=== PATIENT | male | born 1950 | race Two or more races ===

== ENCOUNTER 2024-03-18 20:26 | Inpatient (IN) | payer BC, MEDICAID ==
[~2024-03-18] VITALS: Ht 175.3 cm; Wt 86.2 kg
[2024-03-18 21:00] VITALS: PULSE 107; RESP 13; O2SAT 93
[2024-03-18] MEDS: dilTIAZem 125mg/125ml BAG KIT 100 ML IV SCH (21:00)
--- NOTE | 2024-03-18 21:05 | ED.PDOC ---
Altered Mental Status HPI Comments A 73 year old male brought in by EMS presents to the ED with a chief complaint of ALOC. Per EMS, patient was at [facility] for increased confusion as well as generalized weakness for the past 2 days. Per [facility], patient has new onset of A-fib and has elevated Troponin. Has a past medical history of HTN, HLD, Liver cirrhosis, HLD, CVA. No other symptoms or modifying factors present at this time. Chief Complaint: ALOC Time Seen by MD: 20:50 Reviewed Notes: Medications, Allergies Allergies: Coded Allergies: NO KNOWN ALLERGIES (Unverified , 03/18/24) Information Source: Patient, Emergency Med Personnel Mode of Arrival: EMS Severity: Moderate Timing: Days Duration: Since onset Prehospital treatment: None Quality: Change in Behavior, Confusion History of: CVA Past Medical History PAST MEDICAL HISTORY: AFIB Family History Family History: Unknown Social History Smoker: Non-Smoker Alcohol: Denies ETOH Use Drugs: Denies Drug Use Lives In: Home Constitutional: denies: chills, diaphoresis, fatigue, fever, malaise, sweats, weakness, others EENTM: denies: blurred vision, double vision, ear bleeding, ear discharge, ear drainage, ear pain, ear ringing, eye pain, eye redness, hearing loss, mouth pain , mouth swelling, nasal discharge, nose bleeding, nose congestion, nose pain, photophobia, tearing, throat pain, throat swelling, voice changes, others Respiratory: denies: cough, hemoptysis, orthopnea, SOB at rest, shortness of breath, SOB with excertion, stridor, wheezing, others Cardiovascular: denies: chest pain, dizzy spells, diaphoresis, Dyspnea on exertion, edema, irregular heart beat, left arm pain, lightheadedness, palpitations, PND, syncope, others Gastrointestinal: denies: abdomen distended, abdominal pain, blood streaked bowels, constipated, diarrhea, dysphagia, difficulty swallowing, hematemesis, melena, nausea, poor appetite, poor fluid intake, rectal bleeding, rectal pain, vomiting, others Genitourinary: denies: burning, dysuria, flank pain, frequency, hematuria, incontinence, penile discharge, penile sore, pain, testicle pain, testicle swelling, urgency, others Neurological: denies: dizziness, fainting, headache, left sided numbness, left sided weakness, numbness, paresthesia, pre-existing deficit, right sided numbness, right sided weakness, seizure, speech problems, tingling, tremors, weakness, others Musculoskeletal: denies: back pain, gout, joint pain, joint swelling, muscle pain, muscle stiffness, neck pain, others Integumetry: denies: bruises, change in color, change in hair/nails, dryness, laceration, lesions, lumps, rash, wounds, others Allergic/Immunocompromised: denies: Difficulty Healing, Frequent Infections, Hives, Itching, others Hematologic/Lymphatic: denies: anemia, blood clots, easy bleeding, easy bruising, swollen glands, others Endocrine: denies: excessive hunger, excessive sweating, excessive thirst, excessive urination, flushing, intolerance to cold, intolerance to heat, unexplained weight gain, unexplained weight loss, others Psychiatric: denies: anxiety, bipolar disorder, depression, hopeless, panic disorder, schizophrenia, sleepless, suicidal, others All Other Systems: Reviewed and Negative Physical Exam General Appearance: No Apparent Distress, Normal HEENT: Normal ENT Inspection, Pharynx Normal, TMs Normal Neck: Full Range of Motion, Non-Tender, Normal, Normal Inspection Respiratory: Chest Non-Tender, Lungs Clear, No Accessory Muscle Use, No Respiratory Distress, Normal Breath Sounds Cardiovascular: No Edema, No JVD, No Murmur, No Gallop, Normal Peripheral Pulses, Regular Rate/Rhythm Breast Exam: Deferred Gastrointestinal: No Organomegaly, Non Tender, No Pulsatile Mass, Normal Bowel Sounds, Soft Genitalia: Deferred Pelvic: Deferred Rectal: Deferred Extremities: No calf tenderness, Normal capillary refill, Normal inspection, Normal range of motion, Non-tender, No pedal edema Musculoskeletal : Apperance: Normal 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 Was a procedure done?: No Differential Diagnosis (ALOC) Differential Diagnosis: Dehydration, Encephalopathy, Sepsis, Seizure, Closed Head Injury, CVA X-Ray, Labs, Meds, VS Vital Signs Date Time Temp Pulse Resp B/P (MAP) Pulse Ox O2 Delivery O2 Flow Rate FiO2 03/18/24 21:00 107 13 123/67 (85) 93 03/18/24 20:41 109 03/18/24 20:32 100.2 104 16 127/65 (85) 95 03/18/24 20:30 109 Lab Test 03/18/24 23:06 03/18/24 22:52 03/18/24 22:35 03/18/24 22:19 Range/Units Lactic Acid Level Pending Blood Gas Specimen Type Arterial Blood Gas Sample Site Right radial Blood Gas Patient Temperature 37.0 Arterial Blood Date Drawn [id number] Arterial Blood pH 7.376 7.350-7.450 Arterial Blood Partial Pressure CO2 42.1 35.0-48.0 mmHg Arterial Blood Partial Pressure O2 70.6 L 83.0-108.0 mmHg Arterial Blood HCO3 24.1 21.0-28.0 mmol/L Arterial Blood Oxygen Saturation 92.9 L 94.0-98.0 % Arterial Blood Base Excess -1.1 -2.0-3.0 mmol/L Arterial Blood Oxyhemoglobin 91.5 L 94.0-98.0 % Arterial Blood Carboxyhemoglobin 1.0 0.5-1.5 % Arterial Blood Methemoglobin 0.5 0.0-1.5 % Haim Test Yes Blood Gas Total Hemoglobin 11.10 L 13.5-17.5 g/dL Blood Gas Liter Flow 6.00 Blood Gas Modality Nasal cannula Blood Gas Spontaneous Rate 18 FiO2 % 44.0 Urine Color Light-orange Yellow Urine Clarity Turbid H Clear Urine pH 5.5 5.0-9.0 Urine Specific [place] 1.017 1.001-1.035 Urine Protein 1+ H Negative Urine Ketones 1+ H Negative Urine Blood 3+ H Negative /uL Urine Nitrite Negative Negative Urine Bilirubin Negative Negative Urine Urobilinogen Normal Negative mg/dL Urine Leukocyte Esterase 1+ Negative /uL Urine RBC 2020 0 - 3 /hpf Urine WBC 70 0 - 3 /hpf Urine Squamous Epithelial Cells None seen <5 /hpf Urine Bacteria Mod H None Seen /hpf Urine Mucus Few None Seen Urine Glucose Normal Normal mg/dL Prothrombin Time Pending Prothrombin Time INR Pending Activated Partial Thromboplast Time Pending Test 03/18/24 22:18 03/18/24 21:20 Range/Units Troponin I High Sensitivity 4654 *H 4440 *H </=54 ng/L White Blood Count 11.6 H 4.4-10.8 10^3/uL Red Blood Count 3.69 L 4.5-5.90 10^6/uL Hemoglobin 10.9 L 13.5-17.5 g/dL Hematocrit 33.8 L 41.0-53.0 % Mean Corpuscular Volume 91.6 80.0-100.0 fL Mean Corpuscular Hemoglobin 29.6 28.0-32.0 pg Mean Corpuscular Hemoglobin Concent 32.3 32.0-36.0 g/dL Red Cell Distribution Width 20.6 H 11.8-14.3 % Platelet Count 136 L 140-450 10^3/uL Mean Platelet Volume 10.0 6.9-10.8 fL Neutrophils (%) (Auto) 77.7 37.0-80.0 % Lymphocytes (%) (Auto) 4.5 L 10.0-50.0 % Monocytes (%) (Auto) 17.2 H 0.0-12.0 % Eosinophils (%) (Auto) 0.3 0.0-7.0 % Basophils (%) (Auto) 0.3 0.0-2.0 % Neutrophils # (Auto) 9.0 H 1.6-8.6 10 ^3/uL Lymphocytes # (Auto) 0.5 0.4-5.4 10 ^3/uL Monocytes # (Auto) 2.0 H 0-1.3 10 ^3/uL Eosinophils # (Auto) 0 0-0.8 10 ^3/uL Basophils # (Auto) 0 0-0.2 10 ^3/uL Nucleated Red Blood Cells 1.4 % Sodium Level 141 136-145 mmol/L Potassium Level 3.9 3.5-5.1 mmol/L Chloride Level 110 H 98-107 mmol/L Carbon Dioxide Level 20 20-31 mmol/L Anion Gap 11 5-15 Blood Urea Nitrogen 20 9-23 mg/dL Creatinine 0.73 0.700-1.30 mg/dL Glomerular Filtration Rate Calc 96 >90 mL/min BUN/Creatinine Ratio 27.4 H 10.0-20.0 Serum Glucose 103 74-106 mg/dL Lactic Acid Level 3.1 *H 0.4-2.0 mmol/L Calcium Level 9.9 8.7-10.4 mg/dL Total Bilirubin 10.5 H 0.2-1.0 mg/dL Aspartate Amino Transferase (AST) 166 H 13-40 U/L Alanine Aminotransferase (ALT) 102 H 7-40 U/L Alkaline Phosphatase 296 H 46-116 U/L Ammonia < 10 L 11-32 umol/L B-Type Natriuretic Peptide Pending Total Protein 7.8 5.7-8.2 g/dL Albumin 4.1 3.2-4.8 g/dL Lipase 61 H 12-53 U/L [place] [address] Ph: [phone] DIAGNOSTIC IMAGING Diagnostic Imaging Report : [id number] Signed PATIENT: ARTUR SOLORZANO ACCT: [id number] UNIT: [id number] : 1950 LOC: ER ROOM / BED: / AGE / SEX: 73 / M ADM STATUS: REG ER SERVICE 00 ORDERING PHYSICIAN: JENNIFER GARCIA MD PROCEDURE(s): CXRP - CHEST PORTABLE REASON: ams ORDER NUMBER(s): [id number], ACCESSION NUMBER(s): [id number] CHEST RADIOGRAPH Indication: ams Technique: Single frontal view of the chest was obtained Comparison: None FINDINGS: Lines and Tubes: None Lungs: Infiltrate in the right perihilar and right lower lobe. Pleura: No effusion. No pneumothorax. Cardiomediastinal contours: Unremarkable Bones: Bilateral shoulder replacements. IMPRESSION: 1. Infiltrate right lower lobe and right perihilar region. ATED BY: MARIA D RUIZ Jr., DO DICTATED DATE/TIME: 03/18/242132 SIGNED BY: MARIA D RUIZ Jr., SIGNED DATE/TIME: 03/18/242132 CC: [place] [address] Ph: [phone] DIAGNOSTIC IMAGING Diagnostic Imaging Report : [id number] Signed PATIENT: ARTUR SOLORZANO ACCT: [id number] UNIT: [id number] : 1950 LOC: ER ROOM / BED: / AGE / SEX: 73 / M ADM STATUS: REG ER SERVICE 00 ORDERING PHYSICIAN: JENNIFER GARCIA MD PROCEDURE(s): HWOCT - HEAD WITHOUT CONTRAST REASON: [facility] ORDER NUMBER(s): [id number], ACCESSION NUMBER(s): [id number] EXAM: CT HEAD WITHOUT CONTRAST INDICATION: ams TECHNIQUE: CT of the head without intravenous contrast. Radiation Dose Information: CT Dose: CTDI volume is 65.94 mGy. Dose-length product is 1299.24 mGy*cm The dose indicators for CT are the volume Computed Tomography (CT) Dose Index (CTDIvol) and the Dose Length Product (DLP), and are measured in units of mGy and mGy-cm, respectively. These indicators are not patient dose, but values generated from the CT scanner acquisition factors. The report includes radiation exposure data for exposures received during this examination. COMPARISON: None FINDINGS: There is no evidence of acute intracranial hemorrhage, extra-axial collection, mass effect, midline shift, herniation or hydrocephalus. The ventricles, sulci and cisterns are age appropriate. The ruiz-white differentiation is intact. Patchy periventricular and subcortical white matter hypoattenuation is nonspecific but may be related to small vessel ischemic disease. Mild mucosal thickening in the maxillary sinuses. The mastoid air cells are clear. The surrounding soft tissues and osseous structures are unremarkable. IMPRESSION: 1. No acute intracranial hemorrhage 2. No CT findings to suggest territorial ischemia. ATED BY: MARIA D RUIZ Jr., DO DICTATED DATE/TIME: 03/18/242155 SIGNED BY: MARIA D RUIZ Jr., SIGNED DATE/TIME: 03/18/242155 CC: Time of 1ST Reevaluation: 21:20 Reevaluation 1ST: Unchanged Patient Education/Counseling: Diagnosis, Treatment, Prognosis Family Education/Counseling: No Family Present Additional Information I reviewed the following notes from patient's past medical encounters: The following tests were ordered, and results were reviewed by me: AMMONIA, BNP, CBC, CMP, LA W/ REFLEX. LIPASE, TROP, TROP, TROP, UA, XY CHEST, CT HEAD WITHOUT CONTRAST, PTPTT Additional Information was gathered from interviewing the following independent historians: EMS I reviewed and agreed with the following test results read by other providers: CT HEAD WITHOUT CONTRAST, XY CHEST I discussed treatment and results with medical personnel and: patient Departure 1 Departure Time of Disposition: 23:23 (Patient was a transfer from [facility]. Patient presented with signs of sepsis and an NSTEMI. Patient was already started on treatment at the outside hospital. Started heparin empirically cover patient with antibiotics for pneumonia. patient already received fluids boluses at outside hospital and appears mildly volume overloaded so will not give aditional fluids here. ) Impression: Primary Impression: Metabolic encephalopathy Additional Impressions: Pneumonia Qualified Codes: J18.9 - Pneumonia, unspecified organism NSTEMI (non-ST elevated myocardial infarction) Disposition: ADMITTED INPATIENT Admit to: [facility] Condition: Guarded Critical Care Note Critical Care Time?: Yes Critical care comment: Concern for sepsis Authorized and Performed by: Jennifer Garcia MD Total critical care time: Approximately 33 minutes Due to a high probability of clinically significant, life threatening deterioration, the patient required my highest level of preparedness to intervene emergently and I personally spent this critical care time directly and personally managing the patient. This critical care time included obtaining a history; examining the patient; pulse oximetry; ordering and review of studies; arranging urgent treatment with development of a management plan; evaluation of patient's response to treatment; frequent reassessment; and, discussions with other providers. This critical care time was performed to assess and manage the high probability of imminent, life-threatening deterioration that could result in multi-organ failure. It was exclusive of separately billable procedures and treating other patients and teaching time. Please see my other sections and the rest of the note for further information on patient assessment and treatment. Stability Stability form required: No I personally scribed for JENNIFER GARCIA MD ([email or web address]) on 03/18/24 at 21:05. Electronically submitted by Monika Horton ([email or web address]). I personally scribed for JENNIFER GARCIA MD ([email or web address]) on 03/18/24 at 21:07. Electronically submitted by Monika Horton ([email or web address]). I personally scribed for JENNIFER GARCIA MD ([email or web address]) on 03/18/24 at 21:51. Electronically submitted by Monika Horton ([email or web address]). I personally scribed for JENNIFER GARCIA MD ([email or web address]) on 03/18/24 at 23:13. Electronically submitted by Monika Horton ([email or web address]). JENNIFER GARCIA MD Mar 18, 2024 21:05
--- NOTE | 2024-03-18 21:35 | DVH ---
CHEST RADIOGRAPH Indication: ams Technique: Single frontal view of the chest was obtained Comparison: None FINDINGS: Lines and Tubes: None Lungs: Infiltrate in the right perihilar and right lower lobe. Pleura: No effusion. No pneumothorax. Cardiomediastinal contours: Unremarkable Bones: Bilateral shoulder replacements. IMPRESSION: 1. Infiltrate right lower lobe and right perihilar region.
[2024-03-18 21:39] LABS: Basophils # (auto) 0 10 ^3/uL (0-0.2); Basophils % (auto) 0.3 % (0.0-2.0); Eosinophils # (auto) 0 10 ^3/uL (0-0.8); Eosinophils % (auto) 0.3 % (0.0-7.0); Hematocrit 33.8 % (41.0-53.0); Hemoglobin 10.9 g/dL (13.5-17.5); Lymphocytes # (auto) 0.5 10 ^3/uL (0.4-5.4); Lymphocytes % (auto) 4.5 % (10.0-50.0); Mean Corpuscular Hemoglobin 29.6 pg (28.0-32.0); Mean Corpuscular Hgb Conc. 32.3 g/dL (32.0-36.0); Mean Corpuscular Volume 91.6 fL (80.0-100.0); Monocytes % (auto) 17.2 % (0.0-12.0); Neutrophils % (auto) 77.7 % (37.0-80.0); Nucleated Red Blood Cells % 1.4 %; Platelet Count (auto) 136 10^3/uL (140-450); Red Blood Cells 3.69 10^6/uL (4.5-5.90); White Blood Cell 11.6 10^3/uL (4.4-10.8)
[2024-03-18 21:53] LABS: Anion Gap 11 (5-15); Calcium 9.9 mg/dL (8.7-10.4); Carbon Dioxide 20 mmol/L (20-31); Glucose 103 mg/dL (74-106); Potassium 3.9 mmol/L (3.5-5.1); Sodium 141 mmol/L (136-145)
[2024-03-18 21:54] LABS: Albumin 4.1 g/dL (3.2-4.8); Total Protein 7.8 g/dL (5.7-8.2)
--- NOTE | 2024-03-18 21:59 | DVH ---
EXAM: CT HEAD WITHOUT CONTRAST INDICATION: ams TECHNIQUE: CT of the head without intravenous contrast. Radiation Dose Information: CT Dose: CTDI volume is 65.94 mGy. Dose-length product is 1299.24 mGy*cm The dose indicators for CT are the volume Computed Tomography (CT) Dose Index (CTDIvol) and the Dose Length Product (DLP), and are measured in units of mGy and mGy-cm, respectively. These indicators are not patient dose, but values generated from the CT scanner acquisition factors. The report includes radiation exposure data for exposures received during this examination. COMPARISON: None FINDINGS: There is no evidence of acute intracranial hemorrhage, extra-axial collection, mass effect, midline s hift, herniation or hydrocephalus. The ventricles, sulci and cisterns are age appropriate. The ruiz-white differentiation is intact. Patchy periventricular and subcortical white matter hypoattenuation is nonspecific but may be related to small vessel ischemic disease. Mild mucosal thickening in the maxillary sinuses. The mastoid air cells are clear. The surrounding soft tissues and osseous structures are unremarkable. IMPRESSION: 1. No acute intracranial hemorrhage 2. No CT findings to suggest territorial ischemia.
[2024-03-18 22:05] LABS: Red Cell Distribution Width 20.6 % (11.8-14.3)
[2024-03-18 22:06] LABS: Aspartate Aminotransferase 166 U/L (13-40); Bilirubin, Total 10.5 mg/dL (0.2-1.0)
[2024-03-18 22:09] LABS: Alanine Aminotransferase 102 U/L (7-40); Alkaline Phosphatase 296 U/L (46-116); Chloride 110 mmol/L (98-107); Lipase 61 U/L (12-53)
[2024-03-18 22:13] LABS: Lactic Acid w/Reflex 3.1 mmol/L (0.4-2.0)
[2024-03-18 22:20] LABS: BUN/Creatinine Ratio 27.4 (10.0-20.0); Blood Urea Nitrogen 20 mg/dL (9-23)
[2024-03-18 22:57] LABS: Urine Bacteria MOD /hpf (None Seen); Urine Blood 3+ /uL (Negative); Urine Clarity Turbid (Clear); Urine Color Light-Orange (Yellow); Urine Mucus FEW (None Seen); Urine Protein, UAD 1+ (Negative); Urine Specific Gravity 1.017 (1.001-1.035); Urine Squamous Epithelial Cell None Seen /hpf (<5); Urine Urobilinogen Normal (Negative); Urine WBC 70 /hpf (0 - 3); Urine pH 5.5 (5.0-9.0)
[2024-03-18 23:19] LABS: Base Excess -1.1 mmol/L (-2.0-3.0)
[2024-03-18] MEDS: VANCOMYCIN 1GM/250ML KIT 200 ML IV ONE (23:28)
[2024-03-18 23:49] LABS: INR 1.29 (0.9-1.15); Partial Thromboplastin Time 28.2 SEC (24.5-34.5); Prothrombin Time 13.4 sec (9.3-11.8)
[2024-03-18] MEDS: ROCURONIUM 10MG/ML 10ML VIAL IV ONE (23:52)
[2024-03-18] MEDS: ETOMIDATE (2MG/ML) 20ML VIAL IV ONE (23:52)
[2024-03-18 23:58] VITALS: BP 143/74; PULSE 104; RESP 18; O2SAT 100
[2024-03-19] VITALS (42 sets, daily range): BP systolic 84–165; BP diastolic 47–92; PULSE 79–118; RESP 13–22; TEMP 97.3–100.2; O2SAT 97–100
[2024-03-19] MEDS ORDERED: MORPHINE SULFATE INJ 2 MG/ml SYRG IV PRN (00:15)
[2024-03-19] MEDS ORDERED: NITROGLYCERIN 0.4 MG SL TAB SL PRN (00:15)
--- NOTE | 2024-03-19 00:21 | ED.PDOC ---
Was a procedure done? 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: Attending Physician Indication: Hypotension, Volume resuscitation Room prepared for procedure: Yes Carpet Sewing Machine Operator performed hand hygien: Yes Maximal sterile barrier precau: Mask/Eye shield, Sterile gown, Sterlie gloves, Large sterlie drape Skin Preparation: Chlorhexidine gluconate Skin preparation completely dr: Yes Insertion site: Right, Femoral Central line catheter type: Uff-xpmbincy-iyg dialysis Number of lumens: 3 Central line exchanged over a: Yes Antiseptic ointment applied to: Yes Post Assessment: Proper placement Informed consent obtained: No Risks/benefits/alt described: No Intubation Indication: Altered Mental Status Prep: Preoxygenation Pretreated with: Other (Etomidate) Medicated with: Other (Rocuronium) Intubation Approach: Orotracheal Intubation size: cm (8) Informed consent obtained: No Risks/benefits/alt described: No Departure 1 Departure Time of Disposition: 23:23 (Patient continued to deteriorate became more and more confused and altered. Patient began aspirating was not tolerating his own secretions. Patient was intubated for airway protection. Central line was placed.) Impression: Primary Impression: Metabolic encephalopathy Additional Impressions: NSTEMI (non-ST elevated myocardial infarction) Pneumonia Qualified Codes: J18.9 - Pneumonia, unspecified organism Aspiration into airway Qualified Codes: T17.908A - Unspecified foreign body in respiratory tract, part unspecified causing other injury, initial encounter Disposition: ADMITTED INPATIENT Admit to: ICU Condition: Critical Critical Care Note Critical Care Time?: Yes Critical care comment: Metabolic encephalopathy I spent an additional 44 minutes of critical care time on this patient. JENNIFER GARCIA MD Mar 19, 2024 00:21
[2024-03-19 00:40] LABS: Cannabinoid Screen, Urine Pos (NEGATIVE); Opiate Scree,Urine Pos (NEGATIVE)
[2024-03-19 01:00] LABS: Amphetamine Screen, Urine Neg (NEGATIVE); Barbiturate Scree,Urine Neg (NEGATIVE); Benzodiazephine Screen, Urine Pos (NEGATIVE); Cocaine Screen, Urine Neg (NEGATIVE); Phencyclidine Screen, Urine Neg (NEGATIVE)
--- NOTE | 2024-03-19 01:04 | DVH ---
CHEST RADIOGRAPH Indication: POST INTUBATION Technique: Single frontal view of the chest was obtained Comparison: XY CHEST PORTABLE on DOS: 03/18/24 FINDINGS: Lines and Tubes: Endotracheal tube 6 cm above the lowell. Lungs: Persistent right lower lobe infiltrate our improved inspiratory effort. Pleura: No effusion. No pneumothorax. Cardiomediastinal contours: Unremarkable Bones: Bilateral shoulder prosthesis IMPRESSION: 1. Endotracheal tube 6 cm above the lowell. 2. Improved inspiratory effort with persistent right lower lobe airspace disease. HS:Y
[2024-03-19 01:09] LABS: Base Excess -2.3 mmol/L (-2.0-3.0)
[2024-03-19] MEDS: HEPARIN SODIUM (PORCINE) 5000 UNITS/ML 1ML VIAL IV ONE (01:14)
[2024-03-19] MEDS: HEPARIN DRIP/D5W 100UNITS/ML 250 ML IV SCH ×2 (01:22→15:28)
[2024-03-19] MEDS: AZITHROMYCIN 500MG/ 250ML 250 ML IV ONE (01:27)
[2024-03-19] MEDS: PROPOFOL 100 ML IV SCH (01:36)
--- NOTE | 2024-03-19 01:49 | DVH ---
ABDOMINAL ULTRASOUND CLINICAL HISTORY: Elevated LFT, UTI TECHNIQUE: Multiple grayscale and color Doppler ultrasound images were obtained of the abdomen. WID: COMPARISON: None FINDINGS: Technically difficult study due to patient factors, limited mobility and intubation. Liver and Biliary System: Nodular contour and small in size, increased echogenicity measuring 12.9 cm. No focal hepatic observations. No intrahepatic bile duct dilatation. The common duct is not visu alized. The gallbladder is normal caliber without wall thickening. Pancreas: Obscured due to overlying bowel gas Spleen: is within normal limits. Kidneys: The right kidney is 10.1 cm and the left kidney is 0 cm. No hydronephrosis, increased ech ogenicity, shadowing stone, or focal lesion. Right pleural effusion. Questionable trace left pleural effusion. IMPRESSION: 1. Small nodular contour of the liver which could be cirrhosis or fibrosis. 2. Hepatic steatosis. 3. No acute cholecystitis. 4. Right pleural effusion and questionable trace left pleural effusion.
[2024-03-19] MEDS: SOD CHL 0.45% 1,000 ML IV ONE (02:19)
[2024-03-19] MEDS: CEFEPIME 2GM/50ML NS 50 ML IV ONE (02:19)
--- NOTE | 2024-03-19 02:59 | ECG ---
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
[2024-03-19 03:13] LABS: Basophils # (auto) 0 10 ^3/uL (0-0.2); Basophils % (auto) 0.1 % (0.0-2.0); Eosinophils # (auto) 0 10 ^3/uL (0-0.8); Hematocrit 32.1 % (41.0-53.0); Hemoglobin 10.5 g/dL (13.5-17.5); Lymphocytes # (auto) 0.6 10 ^3/uL (0.4-5.4); Lymphocytes % (auto) 3.8 % (10.0-50.0); Mean Corpuscular Hemoglobin 29.6 pg (28.0-32.0); Mean Corpuscular Hgb Conc. 32.6 g/dL (32.0-36.0); Mean Corpuscular Volume 90.9 fL (80.0-100.0); Monocytes % (auto) 12.9 % (0.0-12.0); Neutrophils # (auto) 13.2 10 ^3/uL (1.6-8.6); Neutrophils % (auto) 83.2 % (37.0-80.0); Nucleated Red Blood Cells % 1.2 %; Platelet Count (auto) 135 10^3/uL (140-450); Red Blood Cells 3.53 10^6/uL (4.5-5.90); White Blood Cell 15.8 10^3/uL (4.4-10.8)
[2024-03-19 03:21] LABS: Red Cell Distribution Width 20.3 % (11.8-14.3)
[2024-03-19 03:30] LABS: Albumin 4.1 g/dL (3.2-4.8); Anion Gap 10 (5-15); Calcium 9.7 mg/dL (8.7-10.4); Carbon Dioxide 23 mmol/L (20-31); Potassium 3.7 mmol/L (3.5-5.1); Sodium 141 mmol/L (136-145); Total Protein 7.8 g/dL (5.7-8.2)
[2024-03-19 03:33] LABS: Alanine Aminotransferase 98 U/L (7-40); Alkaline Phosphatase 289 U/L (46-116); Aspartate Aminotransferase 155 U/L (13-40); Bilirubin, Total 10.8 mg/dL (0.2-1.0); Chloride 108 mmol/L (98-107); Glucose 173 mg/dL (74-106)
[2024-03-19] MEDS: fentaNYL Drip 2500mCg/250mlNS 250 ML IV SCH (04:54)
[2024-03-19 05:10] LABS: BUN/Creatinine Ratio 27.4 (10.0-20.0); Blood Urea Nitrogen 23 mg/dL (9-23)
[2024-03-19] MEDS: MIDAZOLAM DRIP 50 mg/50mL 50 ML IV SCH (06:03)
[2024-03-19] MEDS: MIDAZOLAM DRIP 50 mg/50mL 50 ML IV ONE (06:04)
[2024-03-19] MEDS: IPRATROPIUM BROM 0.5 MG/2.5ML INH SOL NEB SCH (06:42)
[2024-03-19] MEDS: ALBUTEROL SULF 2.5 MG/0.5ML(0.5%) NEB SOLN NEB SCH (06:42)
[2024-03-19 07:22] LABS: INR 1.39 (0.9-1.15); Partial Thromboplastin Time 63.2 SEC (24.5-34.5); Prothrombin Time 14.4 sec (9.3-11.8)
[2024-03-19] MEDS ORDERED: levoFLOXacin 500MG 100 ML IV SCH (10:00)
[2024-03-19] MEDS: PIPERACILLIN-TAZOB 3.375GM 100 ML IV SCH (10:15)
[2024-03-19] MEDS: NOREPINEPHRINE 8 MG/250ML KIT 250 ML IV SCH (10:22)
[2024-03-19] MEDS ORDERED: VANCOMYCIN PER PHARMACY 0 MG IV SCH (10:30)
[2024-03-19 11:58] LABS: Base Excess -1.9 mmol/L (-2.0-3.0)
[2024-03-19 12:13] LABS: Blood Alcohol 5.7 mg/dL (<10)
--- NOTE | 2024-03-19 12:49 | ECG ---
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
[2024-03-19 12:54] LABS: Hepatitis A Ab IgM Negative; Hepatitis B Core IgM Negative (Negative); Hepatitis B Surface Antigen Negative (Negative)
[2024-03-19 12:58] LABS: Hepatitis C Antibody Reactive (Negative)
[2024-03-19 14:19] LABS: INR 1.41 (0.9-1.15); Prothrombin Time 14.6 sec (9.3-11.8)
[2024-03-19 14:23] LABS: Partial Thromboplastin Time 101.7 SEC (24.5-34.5)
--- NOTE | 2024-03-19 17:37 | DVHSR ---
APPROVED REPORT EXAM: LIMITED Two-dimensional and M-mode echocardiogram with Doppler and color Doppler. Blood Pressure: 106/58 mmHg INDICATION NSTEMI RISK FACTORS Height: 5' 9", Weight: 158 DIMENSIONS LVDd4.8 (3.8-5.7cm)LA (2D)3.9 (1.9-4.0cm)Aortic Root3.6 (2.0-3.7cm) LVDs2.9 (2.5-4.0cm)LA (MM) (1.9-4.0cm)Aortic Cusp Exc1.6 (1.5-2.0cm) EF (%) 70.0 (55-70%)Rt. Atrium4.8 (1.9-4.0cm)Asc. Aorta cm IVSd1.0 (0.7-1.1cm)RV (D) (1.8-2.4cm) PWd1.1 (0.7-1.1cm) Mitral Valve MitralMitral Stenosis E wave0.90m/sMV Mean GR.mmHg A wave0.80m/sMV Peak GR.mmHg E/A ratio1.12D MVAcm2 Aortic Valve Aortic ValveAortic Stenosis V11.30m/Galina Mean GR.11mmHg V22.20m/Galina Peak GR.20mmHg LVOT Diameter2.2 (1.8-2.4cm)Doppler AVA2.25cm2 AI P 1/2 Fhfn001.64ms Tricuspid Valve TR Velocity2.70m/s [id number] Conclusion Normal left ventricular size and dimension. Normal left ventricular systolic function estimated ejec tion fraction 55%. There is a grade 2 diastolic dysfunction. Normal right ventricular size and dimension. Normal right ventricular systolic function. There is m oderate pulmonary hypertension with elevated right ventricular systolic pressure at 40 mm of mercury Mildly dilated right atrium. Normal-sized left atrium The aortic valve is thickened and sclerotic there is mild aortic valve regurgitation Normal mitral valve structure and function. Normal tricuspid valve structure and function. The pulmonary valve is grossly normal. No pericardial effusion.
--- NOTE | 2024-03-19 18:54 | DVHINCON2 ---
Date of service: Mar 19, 2024 Referring Physician Nelson Hahn DO Reason for Consultation Acute hypoxic respiratory failure requiring mechanical ventilator and pneumonia History of Present Illness A 73-year-old man with past medical history of hypertension, hyperlipidemia, liver cirrhosis, and CVA who was brought in by EMS to the ED with chief complaint of altered level of consciousness. Per EMS, patient was at [facility] for increased confusion as well as generalized weakness for the past 2 days. Per [facility], patient has new onset of A-fib and has elevated troponin. Patient was admitted for further care, and pulmonary consultation is requested for evaluation and management d/t acute hypoxic respiratory failure requiring mechanical ventilator and pneumonia. Review of Systems: 14-point review of systems negative unless otherwise noted above. Past Medical History: Hypertension, hyperlipidemia, liver cirrhosis, and CVA Past Surgical History: None Medications: Reviewed. Allergies: No known drug allergies. Family History: Mom with heart disease. Social History: Nonsmoker. No alcohol or illicit drug use. Family History: Cardiovascular disease G8 MOTHER Allergies: Coded Allergies: NO KNOWN ALLERGIES (Unverified , 03/18/24) Home Meds Reported Medications Duloxetine Hcl (Cymbalta) 60 Mg Cap, 60 MG PO DAILY, CAP 03/20/24 Tamsulosin Hcl (Tamsulosin Hcl) 0.4 Mg Cap, 0.8 MG PO QPM, MG 03/20/24 Atorvastatin Calcium (Lipitor) 40 Mg Tab, 40 MG PO DAILY, TAB 03/20/24 Omeprazole (Omeprazole Dr) 40 Mg Cap, 40 MG PO DAILY, CAP 03/20/24 Amitriptyline Hcl (Amitriptyline Hcl) 10 Mg Tab, 10 MG PO HS, MG 03/20/24 Tizanidine Hydrochloride (Zanaflex) 4 Mg Tab, 1 TAB PO TID, TAB 03/20/24 Prednisone (Prednisone) 5 Mg Tab, 5 MG PO Q6H, TAB 03/20/24 Tramadol HCl (Tramadol HCl) 50 Mg Tab, 50 MG PO Q8H PRN for PAIN SCALE 1 THRU 6, TAB 03/20/24 Lorazepam (Lorazepam) 1 Mg Tab, 1 MG PO HS PRN for ANXIETY, TAB 03/20/24 Current Medications Current Medications Medications (Trade) Dose Ordered Sig/Rick Route PRN Reason Start Time Stop Time Status Last Admin Diltiazem HCl 100 ml @ 5 mls/hr Q20H IV 03/18/24 21:00 Heparin Sodium/ Dextrose 250 ml @ 9 mls/hr Q24H IV 03/19/24 00:30 03/19/24 14:53 DC 03/19/24 01:22 Propofol 100 ml @ 2.16 mls/hr Q24H IV 03/19/24 00:00 03/19/24 12:19 Nitroglycerin (Ntrostat Sublingual) 0.4 mg Q5MINP PRN SL FOR CHEST PAIN 03/19/24 00:15 Morphine Sulfate 2 mg Q30M PRN IV FOR CHEST PAIN 03/19/24 00:15 Levofloxacin/ Dextrose 100 ml @ 100 mls/hr DAILY IV 03/19/24 10:00 Hold Albuterol (Ventolin Medneb) 2.5 mg Q6HR NEB 03/19/24 06:00 03/19/24 18:21 Ipratropium [place] (Atrovent Medneb) 0.5 mg Q6HP NEB 03/19/24 06:00 03/19/24 18:21 Fentanyl Citrate 250 ml @ 5 mls/hr Q24H IV 03/19/24 04:45 03/19/24 11:30 Norepinephrine Bitartrate 250 ml @ 3.75 mls/hr Q24H IV 03/19/24 05:45 03/19/24 10:22 Midazolam HCl 50 ml @ 5 mls/hr Q10H IV 03/19/24 06:00 03/19/24 10:30 Piperacillin Sod/ Tazobactam Sod 100 ml @ 25 mls/hr Q8HR IV 03/19/24 10:15 03/19/24 16:40 Vancomycin HCl 0 ml @ 0 mls/hr UD IV 03/19/24 10:30 Heparin Sodium/ Dextrose 250 ml @ 6 mls/hr Q24H IV 03/19/24 15:28 03/19/24 15:28 Vancomycin HCl 250 ml @ 250 mls/hr Q12H IV 03/20/24 00:00 Vital Signs Vital Signs Date Time Temp Pulse Resp B/P (MAP) Pulse Ox O2 Delivery O2 Flow Rate FiO2 03/19/24 18:15 97.5 80 18 94/50 (65) 98 207.5 03/19/24 16:24 Mechanical Ventilator+ 30 30 1225/24 21:00 6 Physical Exam Gen.: Patient lying in bed in medical ICU. Sedated, intubated on mechanical ventilator. Head: Normocephalic, atraumatic. Eyes: PERRLA. Ears: Normal external anatomy. Throat: Endotracheal tube and orogastric tube in place. Neck: Supple, trachea midline. Chest: Transmitted breath sounds bilaterally. Decreased air entry bilaterally. No wheezing. Bibasilar crackles. Cardiovascular: Positive S1, positive S2. Regular rate and rhythm. Abdomen: Positive bowel sounds in all 4 quadrants. Soft, nontender, nondistended. : Fabian in place. Normal external genitalia. Rectal: Deferred. Skin: Warm, dry. Intact. Extremities: 2+ radial pulses bilaterally. No lower extremity edema. Neuro: Sedated. Labs/Diagnostic Data Labs Test 03/19/24 13:11 03/19/24 11:22 03/19/24 06:30 03/19/24 02:30 Range/Units Prothrombin Time 14.6 H 9.3-11.8 sec Prothrombin Time INR 1.41 H 0.9-1.15 Activated Partial Thromboplast Time 101.7 *H 24.5-34.5 SEC Blood Gas Specimen Type Arterial Blood Gas Sample Site Right radial Blood Gas Patient Temperature 37.0 Arterial Blood Date Drawn Arterial Blood pH 7.398 7.350-7.450 Arterial Blood Partial Pressure CO2 37.6 35.0-48.0 mmHg Arterial Blood Partial Pressure O2 68.5 L 83.0-108.0 mmHg Arterial Blood HCO3 22.7 21.0-28.0 mmol/L Arterial Blood Oxygen Saturation 92.9 L 94.0-98.0 % Arterial Blood Base Excess -1.9 -2.0-3.0 mmol/L Arterial Blood Oxyhemoglobin 91.7 L 94.0-98.0 % Arterial Blood Carboxyhemoglobin 0.7 0.5-1.5 % Arterial Blood Methemoglobin 0.6 0.0-1.5 % Haim Test Modified Blood Gas Total Hemoglobin 10.30 L 13.5-17.5 g/dL Blood Gas Set Respiration Rate 18.0 Blood Gas Modality Vent - ac Blood Gas Spontaneous Rate 20 FiO2 % 30.0 Blood Gas Tidal Volume 500.0 Blood Gas PEEP or CPAP 5.0 Creatine Kinase 531 H 46-171 U/L Plasma/Serum Blood Alcohol 5.7 <10 mg/dL Hepatitis A IgM Antibody Negative Hepatitis B Surface Antigen Negative Negative Hepatitis B Core IgM Antibody Negative Negative Hepatitis C Antibody Reactive *A Negative White Blood Count 15.8 #H 4.4-10.8 10^3/uL Red Blood Count 3.53 L 4.5-5.90 10^6/uL Hemoglobin 10.5 L 13.5-17.5 g/dL Hematocrit 32.1 L 41.0-53.0 % Mean Corpuscular Volume 90.9 80.0-100.0 fL Mean Corpuscular Hemoglobin 29.6 28.0-32.0 pg Mean Corpuscular Hemoglobin Concent 32.6 32.0-36.0 g/dL Red Cell Distribution Width 20.3 H 11.8-14.3 % Platelet Count 135 L 140-450 10^3/uL Mean Platelet Volume 9.8 6.9-10.8 fL Neutrophils (%) (Auto) 83.2 H 37.0-80.0 % Lymphocytes (%) (Auto) 3.8 L 10.0-50.0 % Monocytes (%) (Auto) 12.9 H 0.0-12.0 % Eosinophils (%) (Auto) 0.0 0.0-7.0 % Basophils (%) (Auto) 0.1 0.0-2.0 % Neutrophils # (Auto) 13.2 H 1.6-8.6 10 ^3/uL Lymphocytes # (Auto) 0.6 0.4-5.4 10 ^3/uL Monocytes # (Auto) 2.0 H 0-1.3 10 ^3/uL Eosinophils # (Auto) 0 0-0.8 10 ^3/uL Basophils # (Auto) 0 0-0.2 10 ^3/uL Nucleated Red Blood Cells 1.2 % Sodium Level 141 136-145 mmol/L Potassium Level 3.7 3.5-5.1 mmol/L Chloride Level 108 H 98-107 mmol/L Carbon Dioxide Level 23 20-31 mmol/L Anion Gap 10 5-15 Blood Urea Nitrogen 23 9-23 mg/dL Creatinine 0.84 0.700-1.30 mg/dL Glomerular Filtration Rate Calc 92 >90 mL/min BUN/Creatinine Ratio 27.4 H 10.0-20.0 Serum Glucose 173 H 74-106 mg/dL Calcium Level 9.7 8.7-10.4 mg/dL Total Bilirubin 10.8 H 0.2-1.0 mg/dL Aspartate Amino Transferase (AST) 155 H 13-40 U/L Alanine Aminotransferase (ALT) 98 H 7-40 U/L Alkaline Phosphatase 289 H 46-116 U/L Total Protein 7.8 5.7-8.2 g/dL Albumin 4.1 3.2-4.8 g/dL HIV (1&2) Antibody Negative Negative Test 03/19/24 00:13 03/18/24 23:06 03/18/24 22:52 03/18/24 22:35 Range/Units Troponin I High Sensitivity 4381 *H </=54 ng/L Lactic Acid Level 1.5 0.4-2.0 mmol/L Blood Gas Liter Flow 6.00 Urine Color Light-orange Yellow Urine Clarity Turbid H Clear Urine pH 5.5 5.0-9.0 Urine Specific [place] 1.017 1.001-1.035 Urine Protein 1+ H Negative Urine Ketones 1+ H Negative Urine Blood 3+ H Negative /uL Urine Nitrite Negative Negative Urine Bilirubin Negative Negative Urine Urobilinogen Normal Negative mg/dL Urine Leukocyte Esterase 1+ Negative /uL Urine RBC 2020 0 - 3 /hpf Urine WBC 70 0 - 3 /hpf Urine Squamous Epithelial Cells None seen <5 /hpf Urine Bacteria Mod H None Seen /hpf Urine Mucus Few None Seen Urine Glucose Normal Normal mg/dL Urine Opiates Screen Pos NEGATIVE Urine Fentanyl Screen Neg NEGATIVE Urine Barbiturates Screen Neg NEGATIVE Urine Phencyclidine Screen Neg NEGATIVE Urine Amphetamines Screen Neg NEGATIVE Urine Benzodiazepines Screen Pos NEGATIVE Urine Cocaine Screen Neg NEGATIVE Urine Cannabinoids Screen Pos NEGATIVE Test 03/18/24 21:20 Range/Units Ammonia < 10 L 11-32 umol/L B-Type Natriuretic Peptide 905.58 0-100 pg/mL Lipase 61 H 12-53 U/L Assessment Impression: Acute hypoxic respiratory failure On mechanical ventilator Pneumonia, likely gram negative Acute metabolic encephalopathy Non-ST elevation [place] Marijuana use. Plan: s/p intubation on mechanical ventilator. CXR image and report reviewed. Devices in place. Right lower lobe opacities. ABG reviewed, compensated. On AC mode; RR 18, VT 500, PEEP 5, FiO2 of 30% Titrate FIO2 to keep O2 saturation above 90%. VAP bundle. Daily ABG and CXR while intubated Sedate for ventilator synchrony - On Propofol, Versed, Fentanyl. Pressors for hemodynamic support Levophed 2 mcg/min Titrate to keep mean arterial pressure greater than 65 mmHg. Heparin drip for elevated troponin/NSTEMI Follow up Cardiology recs Continue bronchodilators. Continue antibiotics. Leukocytosis - WBC of 15.8 K Monitor renal function Monitor electrolytes. Supplement as necessary. Monitor ins and outs. Maintain euvolemia. Counseled against marijuana use. GI prophylaxis. DVT prophylaxis. Prognosis: Poor given patient's multiple co-morbidities. Condition: Critical Rest of plan per hospitalist and other consultants. A total of 36 minutes of critical care time was spent reviewing the patient record, examining the patient, making a diagnostic and therapeutic plan, discussing this plan with the medical personnel, following up on diagnostic studies and following the patient for clinical stability excluding any and all procedures. At least 50% of this time was spent in direct, [id number] contact. Thank you, Dr. Hahn, for allowing me to participate in this patient's care. Further recommendations will depend on the patient's clinical course. Please do not hesitate to contact me if you have any questions or concerns. This medical document was created using an electronic medical record system with [employer] dictation system. Although these documentations are being carefully reviewed, there may still be some phonetic and typographical changes. The errors are purely typographical, due to imperfection on the software program, and do not reflect any compromise in the patient's medical care. Plan discussed with: Other (JESUS Dixon/Dr. Hahn) PRATIK DORANTES MD Mar 19, 2024 18:54
[2024-03-19 21:59] LABS: INR 1.41 (0.9-1.15); Partial Thromboplastin Time 65.6 SEC (24.5-34.5); Prothrombin Time 14.6 sec (9.3-11.8)
[2024-03-20] VITALS (109 sets, daily range): BP systolic 93–120; BP diastolic 42–60; PULSE 76–91; RESP 15–18; TEMP 97.5–99.3; O2SAT 88–100
[2024-03-20] MEDS: VANCOMYCIN 1GM/250ML KIT 250 ML IV SCH (00:18)
[2024-03-20 04:21] LABS: Basophils # (auto) 0 10 ^3/uL (0-0.2); Basophils % (auto) 0.2 % (0.0-2.0); Eosinophils # (auto) 0.1 10 ^3/uL (0-0.8); Eosinophils % (auto) 0.4 % (0.0-7.0); Hematocrit 27.8 % (41.0-53.0); Hemoglobin 9.3 g/dL (13.5-17.5); Lymphocytes % (auto) 5.1 % (10.0-50.0); Mean Corpuscular Hemoglobin 30.3 pg (28.0-32.0); Mean Corpuscular Hgb Conc. 33.3 g/dL (32.0-36.0); Mean Corpuscular Volume 90.8 fL (80.0-100.0); Monocytes # (auto) 1.6 10 ^3/uL (0-1.3); Monocytes % (auto) 7.9 % (0.0-12.0); Neutrophils # (auto) 17.3 10 ^3/uL (1.6-8.6); Neutrophils % (auto) 86.4 % (37.0-80.0); Nucleated Red Blood Cells % 0.6 %; Platelet Count (auto) 117 10^3/uL (140-450); Red Blood Cells 3.06 10^6/uL (4.5-5.90); White Blood Cell 20.1 10^3/uL (4.4-10.8)
[2024-03-20 04:22] LABS: Red Cell Distribution Width 20.4 % (11.8-14.3)
--- NOTE | 2024-03-20 04:53 | DVH ---
CHEST RADIOGRAPH Indication: PATIENT INTUBATED Technique: Single frontal view of the chest was obtained Comparison: XY CHEST XRAY 1 VIEW on DOS: 03/19/24 FINDINGS: Lines and Tubes: The endotracheal tube terminates 5.7 cm above the [place]. The enteric tube courses b elow the left hemidiaphragm and outside the field of view. Lungs: Bilateral central opacities. Pleura: No effusion. No pneumothorax. Cardiomediastinal contours: Cardiomegaly. Bones: No acute osseous abnormality. Bilateral shoulder prostheses. IMPRESSION: 1. Central predominant opacities which may represent pulmonary edema.
[2024-03-20 05:09] LABS: INR 1.35 (0.9-1.15); Partial Thromboplastin Time 64.5 SEC (24.5-34.5)
[2024-03-20 05:21] LABS: Albumin 3.4 g/dL (3.2-4.8); Anion Gap 10 (5-15); BUN/Creatinine Ratio 33.3 (10.0-20.0); Calcium 9.1 mg/dL (8.7-10.4); Carbon Dioxide 23 mmol/L (20-31); Sodium 142 mmol/L (136-145)
[2024-03-20 05:22] LABS: Total Protein 6.4 g/dL (5.7-8.2)
[2024-03-20 05:32] LABS: Alanine Aminotransferase 78 U/L (7-40); Alkaline Phosphatase 237 U/L (46-116); Aspartate Aminotransferase 101 U/L (13-40); Bilirubin, Total 8.8 mg/dL (0.2-1.0); Blood Urea Nitrogen 35 mg/dL (9-23); Chloride 109 mmol/L (98-107); Glucose 107 mg/dL (74-106); Potassium 3.4 mmol/L (3.5-5.1)
[2024-03-20] MEDS: POTASSIUM CHL 20MEQ/100ML 100 ML IV ONE (06:29)
[2024-03-20 10:13] LABS: INR 1.34 (0.9-1.15); Partial Thromboplastin Time 67.3 SEC (24.5-34.5); Prothrombin Time 13.9 sec (9.3-11.8)
--- NOTE | 2024-03-20 13:10 | DVHPN2 ---
Progress Note - Dictate Date Seen: Mar 20, 2024 Has the PT tested + for MRSA If YES, has PT been informed?: No Medical Necessity Reason Pt with a Central, PICC or Fol: Yes The following are medically ne: Central Line, Ramachandran Catheter Reason for ramachandran catheter: Total Immobilization Subjective Patient intubated and sedated. vital signs Vital Sign Date Time Temp Pulse Resp B/P (MAP) Pulse Ox O2 Delivery O2 Flow Rate FiO2 03/20/24 12:00 85 18 104/51 (68) 100 30 03/20/24 10:25 Mechanical Ventilator+ 03/20/24 10:00 99.0 210.2 03/18/24 21:00 6 Total Intake and Output 03/19/24 03/19/24 03/20/24 15:00 23:00 07:00 Intake Total 595 ml 1082.04 ml 1032.95 ml Output Total 450 ml 175 ml 300 ml Balance 145 ml 907.04 ml 732.95 ml medications Current Medications Medications Dose Ordered Sig/Rick Route Start Time Stop Time Status Last Admin Dose Admin Diltiazem HCl 100 ml @ 5 mls/hr Q20H IV 03/18/24 21:00 Propofol 100 ml @ 2.16 mls/hr Q24H IV 03/19/24 00:00 03/20/24 11:16 19.44 MLS/HR Nitroglycerin 0.4 mg Q5MINP PRN SL 03/19/24 00:15 Morphine Sulfate 2 mg Q30M PRN IV 03/19/24 00:15 Albuterol 2.5 mg Q6HR NEB 03/19/24 06:00 03/20/24 12:00 2.5 MG Ipratropium [place] 0.5 mg Q6HP NEB 03/19/24 06:00 03/20/24 12:00 0.5 MG Fentanyl Citrate 250 ml @ 5 mls/hr Q24H IV 03/19/24 04:45 03/20/24 09:39 35 MLS/HR Norepinephrine Bitartrate 250 ml @ 3.75 mls/hr Q24H IV 03/19/24 05:45 03/20/24 06:42 18.75 MLS/HR Midazolam HCl 50 ml @ 5 mls/hr Q10H IV 03/19/24 06:00 03/20/24 11:50 8 MLS/HR Piperacillin Sod/ Tazobactam Sod 100 ml @ 25 mls/hr Q8HR IV 03/19/24 10:15 03/20/24 05:49 25 MLS/HR Vancomycin HCl 0 ml @ 0 mls/hr UD IV 03/19/24 10:30 Heparin Sodium/ Dextrose 250 ml @ 6 mls/hr Q24H IV 03/19/24 15:28 03/20/24 09:41 6 MLS/HR Vancomycin HCl 250 ml @ 250 mls/hr Q12H IV 03/20/24 00:00 03/20/24 00:18 250 MLS/HR objective General appearance: Intubated and sedated Respiratory: Crackles Cardiovascular: Regular rate and rhythm, no murmurs. No edema Abdomen: Soft, nondistended, nontender, bowel sounds present MSK: Appropriate muscle bulk Neuro: Sedated laboratory and microbiology Laboratory Tests 03/20/24 09:36 03/20/24 03:30 Test 03/20/24 03:30 Range/Units Serum Glucose 107 H 74-106 mg/dL Problem List 1. Septic Shock 2. NSTEMI 3. Acute Respiratory Failure 4. Elevated LFTs Plan: -Cardiology consulted, Dr. Goode -Patient is unstable for left heart cath at this time given pressor support and mechanical ventilation. -Continue heparin drip. -Continue vancomycin and Zosyn -Blood cultures pending -Infectious disease consulted. -Pulmonary consulted --Direct Kranthi negative, LDH slightly elevated, haptoglobin pending. Ruling out underlying autoimmune hemolytic anemia. TTE pending to rule out right-sided heart failure causing hepatobiliary congestion. Imaging suggest underlying cirrhosis. Hepatitis C antibody positive. -Protonix 40mg IV daily -Full Code Plan discussed with: Other STORM BURGER DO Mar 20, 2024 13:10
--- NOTE | 2024-03-20 15:15 | DVHINCON2 ---
Date of service: Mar 20, 2024 Referring Physician Jovani Reason for Consultation NSTEMI History of Present Illness This is a 73 year old male with a past medical history of HTN, HLD, Liver cirrhosis, HLD, CVA who was brought in by EMS on 03/18 due to ALOC. Per EMS, patient was seen at [facility] for increased confusion as well as generalized weakness for the past 2 days. Per [facility] nursing staff, patient has new onset of A-fib and elevated troponin. Chest x-ray shows infiltrate right lower lobe and right perihilar region. CT head shows no acute intracranial hemorrhage. No CT findings to suggest territorial ischemia. Patient was intubated in the ED for airway protection. Troponin 4440 > 4654 > 4381. WBC 11.6.LA 3.1. I am asked to consult on this patient. Family History: Cardiovascular disease G8 MOTHER Allergies: Coded Allergies: NO KNOWN ALLERGIES (Unverified , 03/18/24) Current Medications Current Medications Medications (Trade) Dose Ordered Sig/Rick Route PRN Reason Start Time Stop Time Status Last Admin Heparin Sodium/ Dextrose 250 ml @ 6 mls/hr Q24H IV 03/19/24 15:28 03/20/24 09:41 Vancomycin HCl 250 ml @ 250 mls/hr Q12H IV 03/20/24 00:00 03/20/24 00:18 Review of Systems unable to review as patient is intubated on ventilator. Vital Signs Vital Signs Date Time Temp Pulse Resp B/P (MAP) Pulse Ox O2 Delivery O2 Flow Rate FiO2 03/20/24 12:00 85 18 104/51 (68) 100 30 03/20/24 10:25 Mechanical Ventilator+ 03/20/24 10:00 99.0 210.2 03/18/24 21:00 6 Physical Exam GENERAL: Intubated on ventilator. LUNGS: Decreased breath sounds. CARDIOVASCULAR: Heart sounds are good. ABDOMEN: Soft. Labs/Diagnostic Data Labs Test 03/20/24 09:36 03/20/24 07:50 03/20/24 03:30 03/19/24 11:22 Range/Units Prothrombin Time 13.9 H 9.3-11.8 sec Prothrombin Time INR 1.34 H 0.9-1.15 Activated Partial Thromboplast Time 67.3 H 24.5-34.5 SEC Creatinine 1.23 0.700-1.30 mg/dL Glomerular Filtration Rate Calc 62 >90 mL/min Vancomycin Level Trough 20.7 H 5-10 ug/mL Blood Gas Specimen Type Arterial Blood Gas Sample Site Left radial Blood Gas Patient Temperature 37.0 Arterial Blood Date Drawn [id number] Arterial Blood pH 7.316 L 7.350-7.450 Arterial Blood Partial Pressure CO2 39.5 35.0-48.0 mmHg Arterial Blood Partial Pressure O2 77.2 L 83.0-108.0 mmHg Arterial Blood HCO3 19.7 L 21.0-28.0 mmol/L Arterial Blood Oxygen Saturation 93.9 L 94.0-98.0 % Arterial Blood Base Excess -6.0 L -2.0-3.0 mmol/L Arterial Blood Oxyhemoglobin 92.1 L 94.0-98.0 % Arterial Blood Carboxyhemoglobin 1.4 0.5-1.5 % Arterial Blood Methemoglobin 0.5 0.0-1.5 % Haim Test Modified Blood Gas Total Hemoglobin 9.80 L 13.5-17.5 g/dL Blood Gas Set Respiration Rate 18.0 Blood Gas Modality Vent - ac FiO2 % 30.0 Blood Gas Tidal Volume 500.0 Blood Gas PEEP or CPAP 5.0 White Blood Count 20.1 #H 4.4-10.8 10^3/uL Red Blood Count 3.06 L 4.5-5.90 10^6/uL Hemoglobin 9.3 L 13.5-17.5 g/dL Hematocrit 27.8 #L 41.0-53.0 % Mean Corpuscular Volume 90.8 80.0-100.0 fL Mean Corpuscular Hemoglobin 30.3 28.0-32.0 pg Mean Corpuscular Hemoglobin Concent 33.3 32.0-36.0 g/dL Red Cell Distribution Width 20.4 H 11.8-14.3 % Platelet Count 117 L 140-450 10^3/uL Mean Platelet Volume 10.5 6.9-10.8 fL Neutrophils (%) (Auto) 86.4 H 37.0-80.0 % Lymphocytes (%) (Auto) 5.1 L 10.0-50.0 % Monocytes (%) (Auto) 7.9 0.0-12.0 % Eosinophils (%) (Auto) 0.4 0.0-7.0 % Basophils (%) (Auto) 0.2 0.0-2.0 % Neutrophils # (Auto) 17.3 H 1.6-8.6 10 ^3/uL Lymphocytes # (Auto) 1.0 0.4-5.4 10 ^3/uL Monocytes # (Auto) 1.6 H 0-1.3 10 ^3/uL Eosinophils # (Auto) 0.1 0-0.8 10 ^3/uL Basophils # (Auto) 0 0-0.2 10 ^3/uL Nucleated Red Blood Cells 0.6 % Sodium Level 142 136-145 mmol/L Potassium Level 3.4 L 3.5-5.1 mmol/L Chloride Level 109 H 98-107 mmol/L Carbon Dioxide Level 23 20-31 mmol/L Anion Gap 10 5-15 Blood Urea Nitrogen 35 #H 9-23 mg/dL BUN/Creatinine Ratio 33.3 H 10.0-20.0 Serum Glucose 107 H 74-106 mg/dL Calcium Level 9.1 8.7-10.4 mg/dL Total Bilirubin 8.8 H 0.2-1.0 mg/dL Direct Bilirubin 3.6 H <0.3 mg/dL Aspartate Amino Transferase (AST) 101 H 13-40 U/L Alanine Aminotransferase (ALT) 78 H 7-40 U/L Alkaline Phosphatase 237 H 46-116 U/L Lactate Dehydrogenase 424 H 120-246 U/L Total Protein 6.4 5.7-8.2 g/dL Albumin 3.4 3.2-4.8 g/dL Blood Gas Spontaneous Rate 20 Test 03/19/24 06:30 03/19/24 02:30 03/19/24 00:13 03/18/24 23:06 Range/Units Creatine Kinase 531 H 46-171 U/L Plasma/Serum Blood Alcohol 5.7 <10 mg/dL Hepatitis A IgM Antibody Negative Hepatitis B Surface Antigen Negative Negative Hepatitis B Core IgM Antibody Negative Negative Hepatitis C Antibody Reactive *A Negative HIV (1&2) Antibody Negative Negative Troponin I High Sensitivity 4381 *H </=54 ng/L Lactic Acid Level 1.5 0.4-2.0 mmol/L Test 03/18/24 22:52 03/18/24 22:35 03/18/24 21:20 Range/Units Blood Gas Liter Flow 6.00 Urine Color Light-orange Yellow Urine Clarity Turbid H Clear Urine pH 5.5 5.0-9.0 Urine Specific [place] 1.017 1.001-1.035 Urine Protein 1+ H Negative Urine Ketones 1+ H Negative Urine Blood 3+ H Negative /uL Urine Nitrite Negative Negative Urine Bilirubin Negative Negative Urine Urobilinogen Normal Negative mg/dL Urine Leukocyte Esterase 1+ Negative /uL Urine RBC 2020 0 - 3 /hpf Urine WBC 70 0 - 3 /hpf Urine Squamous Epithelial Cells None seen <5 /hpf Urine Bacteria Mod H None Seen /hpf Urine Mucus Few None Seen Urine Glucose Normal Normal mg/dL Urine Opiates Screen Pos NEGATIVE Urine Fentanyl Screen Neg NEGATIVE Urine Barbiturates Screen Neg NEGATIVE Urine Phencyclidine Screen Neg NEGATIVE Urine Amphetamines Screen Neg NEGATIVE Urine Benzodiazepines Screen Pos NEGATIVE Urine Cocaine Screen Neg NEGATIVE Urine Cannabinoids Screen Pos NEGATIVE Ammonia < 10 L 11-32 umol/L B-Type Natriuretic Peptide 905.58 0-100 pg/mL Lipase 61 H 12-53 U/L Microbiology Date/Time Source Procedure Growth Status 03/19/24 00:11 Sputum Gram Stain Pending Resulted 03/19/24 00:11 Sputum Respiratory Culture - Preliminary Resulted 03/18/24 23:06 Blood Blood Culture - Preliminary NO GROWTH AFTER 24 HOURS OF INCUBATION. Resulted Assessment Acute hypoxic respiratory failure. Septic shock. NSTEMI. Acute Respiratory Failure. Elevated LFTs. Pneumonia, likely gram negative. Acute metabolic encephalopathy. Marijuana use. Plan/Recommendation I agree with your ongoing assessment and care of plan. Echocardiogram. Diltiazem. Heparin drip per protocol. Morphine for pain management. Vasopressors for hemodynamic support. IV antibiotics as ordered. Additional plan as per the hospital course. Critical care time of 90 minutes provided to include time spent evaluation of patient at bedside, when appropriate patient/family education for diagnosis, treatment plan, review of pertinent medical information and discussion of care with specialty providers and PCP. Mechanical ventilator parameters, treatment and adjustments have personally been reviewed by me and treatment plan by protective signal superintendent has also been reviewed. Plan discussed with: Other SACHA HURTADO MD Mar 20, 2024 12:51
[2024-03-20] MEDS ORDERED: ATOR-507 PO (16:22)
[2024-03-20] MEDS ORDERED: OMEP-448 PO (16:22)
[2024-03-20] MEDS ORDERED: LORA-1123 PO (16:22)
[2024-03-20] MEDS ORDERED: PRE5T PO (16:22)
[2024-03-20] MEDS ORDERED: TIZA4TAB9 PO (16:22)
[2024-03-20] MEDS ORDERED: AMIT10TA12 PO (16:22)
[2024-03-20] MEDS ORDERED: TRAM-626 PO (16:22)
[2024-03-20] MEDS ORDERED: TAMS0.4C39 PO (16:22)
[2024-03-20] MEDS ORDERED: DULO60CA41 PO (16:23)
[2024-03-20] MEDS: PANTOPRAZOLE 40 MG/10 ML VIAL INJ IV SCH (17:04)
[2024-03-20] MEDS: VANCOMYCIN 1GM/250ML KIT 250 ML IV ONE (20:37)
--- NOTE | 2024-03-20 21:22 | DVHPN2 ---
Progress Note - Dictate Date Seen: Mar 20, 2024 Has the PT tested + for MRSA If YES, has PT been informed?: No Medical Necessity Reason Pt with a Central, PICC or Fol: Yes The following are medically ne: Central Line, Ramachandran Catheter Reason for ramachandran catheter: Strict I&O, Total Immobilization Subjective Patient seen and examined at bedside. Sedated, intubated on mechanical ventilator. Overnight events reviewed. vital signs Vital Sign Date Time Temp Pulse Resp B/P (MAP) Pulse Ox O2 Delivery O2 Flow Rate FiO2 03/20/24 20:45 97.5 81 18 103/51 (68) 98 207.5 03/20/24 20:20 30 03/20/24 18:20 Mechanical Ventilator+ 03/18/24 21:00 6 Total Intake and Output 03/19/24 03/19/24 03/20/24 15:00 23:00 07:00 Intake Total 595 ml 1082.04 ml 1032.95 ml Output Total 450 ml 175 ml 300 ml Balance 145 ml 907.04 ml 732.95 ml medications Current Medications Medications Dose Ordered Sig/Rick Route Start Time Stop Time Status Last Admin Dose Admin Diltiazem HCl 100 ml @ 5 mls/hr Q20H IV 03/18/24 21:00 Propofol 100 ml @ 2.16 mls/hr Q24H IV 03/19/24 00:00 03/20/24 20:23 19.44 MLS/HR Nitroglycerin 0.4 mg Q5MINP PRN SL 03/19/24 00:15 Morphine Sulfate 2 mg Q30M PRN IV 03/19/24 00:15 Albuterol 2.5 mg Q6HR NEB 03/19/24 06:00 03/20/24 18:32 2.5 MG Ipratropium [place] 0.5 mg Q6HP NEB 03/19/24 06:00 03/20/24 18:32 0.5 MG Fentanyl Citrate 250 ml @ 5 mls/hr Q24H IV 03/19/24 04:45 03/20/24 17:00 35 MLS/HR Norepinephrine Bitartrate 250 ml @ 3.75 mls/hr Q24H IV 03/19/24 05:45 03/20/24 19:36 18.75 MLS/HR Midazolam HCl 50 ml @ 5 mls/hr Q10H IV 03/19/24 06:00 03/20/24 17:01 8 MLS/HR Piperacillin Sod/ Tazobactam Sod 100 ml @ 25 mls/hr Q8HR IV 03/19/24 10:15 03/20/24 17:04 25 MLS/HR Vancomycin HCl 0 ml @ 0 mls/hr UD IV 03/19/24 10:30 Heparin Sodium/ Dextrose 250 ml @ 6 mls/hr Q24H IV 03/19/24 15:28 03/20/24 09:41 6 MLS/HR Pantoprazole Sodium 40 mg DAILY IV 03/20/24 13:15 03/20/24 17:04 40 MG objective Gen.: Patient lying in bed in medical ICU. Sedated, intubated on mechanical ventilator. Head: Normocephalic, atraumatic. Eyes: PERRLA. Ears: Normal external anatomy. Throat: Endotracheal tube and orogastric tube in place. Neck: Supple, trachea midline. Chest: Transmitted breath sounds bilaterally. Decreased air entry bilaterally. No wheezing. Bibasilar crackles. Cardiovascular: Positive S1, positive S2. Regular rate and rhythm. Abdomen: Positive bowel sounds in all 4 quadrants. Soft, nontender, nondistended. : Ramachandran in place. Normal external genitalia. Rectal: Deferred. Skin: Warm, dry. Intact. Extremities: 2+ radial pulses bilaterally. No lower extremity edema. Neuro: Sedated. laboratory and microbiology Laboratory Tests 03/20/24 09:36 03/20/24 03:30 Test 03/20/24 03:30 Range/Units Serum Glucose 107 H 74-106 mg/dL Assessment/Plan Impression: Acute hypoxic respiratory failure On mechanical ventilator Pneumonia, likely gram negative Acute metabolic encephalopathy Non-ST elevation NE Marijuana use. Events: Remains on vent support On AC mode; RR 18, VT 500, PEEP 5, FiO2 of 30% On heparin drip. Sedated on Propofol, Versed, Fentanyl. Pressors for hemodynamic support Levophed 10 mcg/min Titrate to keep mean arterial pressure greater than 65 mmHg. Increased pressor requirements Plan for bronchoscopy with BAL Interstitial opacities noted on chest x-ray. Increasing WBC count - 20.1 K Continue antibiotics Follow up Cardiology recommendations Taper sedation as tolerated OK for Precedex drip for agitation CPAP when patient is awake, alert. Labs and imaging reviewed. Rest of plan as noted below. Plan: s/p intubation on mechanical ventilator. CXR image and report reviewed. Devices in place. Right lower lobe opacities. ABG reviewed, compensated. On AC mode; RR 18, VT 500, PEEP 5, FiO2 of 30% Titrate FIO2 to keep O2 saturation above 90%. VAP bundle. Daily ABG and CXR while intubated Sedate for ventilator synchrony Pressors for hemodynamic support Titrate to keep mean arterial pressure greater than 65 mmHg. Heparin drip for elevated troponin/NSTEMI Follow up Cardiology recs Continue bronchodilators. Continue antibiotics. Leukocytosis - WBC of 20.1 K Monitor renal function Monitor electrolytes. Supplement as necessary. Monitor ins and outs. Maintain euvolemia. Counseled against marijuana use. GI prophylaxis. DVT prophylaxis. Prognosis: Poor given patient's multiple co-morbidities. Condition: Critical Rest of plan per hospitalist and other consultants. A total of 35 minutes of critical care time was spent reviewing the patient record, examining the patient, making a diagnostic and therapeutic plan, discussing this plan with the medical personnel, following up on diagnostic studies and following the patient for clinical stability excluding any and all procedures. At least 50% of this time was spent in direct, [id number] contact. Thank you, Dr. Hahn, for allowing me to participate in this patient's care. Further recommendations will depend on the patient's clinical course. Please do not hesitate to contact me if you have any questions or concerns. This medical document was created using an electronic medical record system with [employer] dictation system. Although these documentations are being carefully reviewed, there may still be some phonetic and typographical changes. The errors are purely typographical, due to imperfection on the software program, and do not reflect any compromise in the patient's medical care. Plan discussed with: Other (JESUS Crook) Critical Care Time(min): 35 PRATIK DORANTES MD Mar 20, 2024 21:22
[2024-03-21] VITALS (110 sets, daily range): BP systolic 90–113; BP diastolic 38–58; PULSE 72–85; RESP 15–18; TEMP 97.2–98.8; O2SAT 89–100
--- NOTE | 2024-03-21 05:44 | DVH ---
CHEST RADIOGRAPH Indication: PATIENT INTUBATED Technique: Single frontal view of the chest was obtained COMPARISON: XY CHEST PORTABLE on DOS: 03/20/24, XY CHEST XRAY 1 VIEW on DOS: 03/19/24, XY CHEST FLO BLE on DOS: 03/18/24 FINDINGS: Lines and Tubes: Endotracheal tube and enteric catheter in satisfactory position. Lungs: Patchy bilateral airspace disease. Pleura: No effusion. No pneumothorax. Cardiomediastinal contours: Unremarkable Bones: Unremarkable IMPRESSION: Lines and tubes in satisfactory position. No significant interval change.
[2024-03-21 06:08] LABS: Anion Gap 10 (5-15); Carbon Dioxide 23 mmol/L (20-31); Potassium 3.6 mmol/L (3.5-5.1); Sodium 141 mmol/L (136-145)
[2024-03-21 06:09] LABS: Calcium 9.2 mg/dL (8.7-10.4)
[2024-03-21 06:14] LABS: Glucose 100 mg/dL (74-106)
[2024-03-21 06:15] LABS: Blood Urea Nitrogen 35 mg/dL (9-23); Chloride 108 mmol/L (98-107)
[2024-03-21 06:32] LABS: Basophils # (auto) 0.1 10 ^3/uL (0-0.2); Basophils % (auto) 0.5 % (0.0-2.0); Eosinophils # (auto) 0.4 10 ^3/uL (0-0.8); Eosinophils % (auto) 2.4 % (0.0-7.0); Hematocrit 28.6 % (41.0-53.0); Hemoglobin 9.2 g/dL (13.5-17.5); Lymphocytes # (auto) 1.8 10 ^3/uL (0.4-5.4); Lymphocytes % (auto) 9.9 % (10.0-50.0); Mean Corpuscular Hemoglobin 29.9 pg (28.0-32.0); Mean Corpuscular Hgb Conc. 32.2 g/dL (32.0-36.0); Mean Corpuscular Volume 92.6 fL (80.0-100.0); Monocytes # (auto) 2.3 10 ^3/uL (0-1.3); Monocytes % (auto) 12.2 % (0.0-12.0); Nucleated Red Blood Cells % 0.7 %; Platelet Count (auto) 105 10^3/uL (140-450); Red Blood Cells 3.09 10^6/uL (4.5-5.90); White Blood Cell 18.7 10^3/uL (4.4-10.8)
[2024-03-21 06:51] LABS: INR 1.29 (0.9-1.15); Partial Thromboplastin Time 67.2 SEC (24.5-34.5); Prothrombin Time 13.4 sec (9.3-11.8)
[2024-03-21 07:21] LABS: Base Excess -6.1 mmol/L (-2.0-3.0)
[2024-03-21 09:30] LABS: Anisocytosis Slight
[2024-03-21 09:31] LABS: Large Platelets FEW; Platelet Estimate Decrea
[2024-03-21 11:52] LABS: Albumin 3.3 g/dL (3.2-4.8); Anion Gap 7 (5-15); BUN/Creatinine Ratio 30.3 (10.0-20.0); Calcium 8.9 mg/dL (8.7-10.4); Carbon Dioxide 23 mmol/L (20-31); Glucose 104 mg/dL (74-106); Sodium 140 mmol/L (136-145)
[2024-03-21 11:53] LABS: Total Protein 6.5 g/dL (5.7-8.2)
[2024-03-21 12:02] LABS: Alanine Aminotransferase 53 U/L (7-40); Alkaline Phosphatase 234 U/L (46-116); Aspartate Aminotransferase 72 U/L (13-40); Bilirubin, Total 7.3 mg/dL (0.2-1.0); Blood Urea Nitrogen 36 mg/dL (9-23); Chloride 110 mmol/L (98-107); Potassium 3.4 mmol/L (3.5-5.1)
--- NOTE | 2024-03-21 12:05 | MEDREC ---
[facility] ASP Intervention Section I [facility] ASP Intervention: Deescalate AB based on CS (PLEASE CONSIDER DE-ESCALATING ZOSYN TO CEFEPIME BASED ON RESPIRATORY CULTURE RESULT WITH KLEBSIELLA PNEUMONIAE ) BYRON TAMAYO Mar 21, 2024 12:05
--- NOTE | 2024-03-21 13:17 | DVHPN2 ---
Progress Note - Dictate Date Seen: Mar 21, 2024 Has the PT tested + for MRSA If YES, has PT been informed?: No Medical Necessity Reason Pt with a Central, PICC or Fol: Yes The following are medically ne: Central Line, Ramachandran Catheter Reason for ramachandran catheter: Strict I&O, Total Immobilization Subjective Patient intubated and sedated. vital signs Vital Sign Date Time Temp Pulse Resp B/P (MAP) Pulse Ox O2 Delivery O2 Flow Rate FiO2 03/21/24 12:55 93/47 03/21/24 12:37 81 18 97 03/21/24 12:27 30 03/21/24 10:00 Mechanical Ventilator+ 03/21/24 08:00 97.5 207.5 Total Intake and Output 03/20/24 03/20/24 03/21/24 15:00 23:00 07:00 Intake Total 685.25 ml 1037.52 ml 860.33 ml Output Total 350 ml 400 ml Balance 685.25 ml 687.52 ml 460.33 ml medications Current Medications Medications Dose Ordered Sig/Rick Route Start Time Stop Time Status Last Admin Dose Admin Diltiazem HCl 100 ml @ 5 mls/hr Q20H IV 03/18/24 21:00 Propofol 100 ml @ 2.16 mls/hr Q24H IV 03/19/24 00:00 03/21/24 12:53 19.44 MLS/HR Nitroglycerin 0.4 mg Q5MINP PRN SL 03/19/24 00:15 Morphine Sulfate 2 mg Q30M PRN IV 03/19/24 00:15 Albuterol 2.5 mg Q6HR NEB 03/19/24 06:00 03/21/24 12:26 2.5 MG Ipratropium [place] 0.5 mg Q6HP NEB 03/19/24 06:00 03/21/24 12:26 0.5 MG Fentanyl Citrate 250 ml @ 5 mls/hr Q24H IV 03/19/24 04:45 03/21/24 12:55 35 MLS/HR Norepinephrine Bitartrate 250 ml @ 3.75 mls/hr Q24H IV 03/19/24 05:45 03/21/24 08:45 18.75 MLS/HR Midazolam HCl 50 ml @ 5 mls/hr Q10H IV 03/19/24 06:00 03/21/24 11:05 8 MLS/HR Piperacillin Sod/ Tazobactam Sod 100 ml @ 25 mls/hr Q8HR IV 03/19/24 10:15 03/21/24 05:26 25 MLS/HR Vancomycin HCl 0 ml @ 0 mls/hr UD IV 03/19/24 10:30 Heparin Sodium/ Dextrose 250 ml @ 6 mls/hr Q24H IV 03/19/24 15:28 03/20/24 09:41 6 MLS/HR Pantoprazole Sodium 40 mg DAILY IV 03/20/24 13:15 03/21/24 11:04 40 MG Vancomycin HCl 250 ml @ 250 mls/hr Q18H IV 03/21/24 14:00 Hydrocortisone Sodium Succinate 50 mg Q8HR IV 03/21/24 11:30 objective General appearance: Intubated and sedated Respiratory: Crackles Cardiovascular: Regular rate and rhythm, no murmurs. No edema Abdomen: Soft, nondistended, nontender, bowel sounds present MSK: Appropriate muscle bulk Neuro: Sedated laboratory and microbiology Laboratory Tests 03/21/24 10:59 03/21/24 05:00 Test 03/21/24 10:59 Range/Units Serum Glucose 104 74-106 mg/dL Problem List 1. Septic Shock 2. NSTEMI 3. Acute Respiratory Failure 4. Elevated LFTs 5. Pulmonary Hypertension Plan: -Cardiology consulted, Dr. Goode. TTE shows pulmonary hypertension, grade 2 diastolic dysfunction. -Patient is unstable for left heart cath at this time given pressor support and mechanical ventilation. -Continue heparin drip. -Continue vancomycin and Zosyn -Blood cultures show NGTD. -Infectious disease consulted. -Pulmonary consulted --Direct Kranthi negative, LDH slightly elevated, haptoglobin normal. LFTs improving. Imaging suggest underlying cirrhosis. Hepatitis C antibody positive. -Protonix 40mg IV daily -NS bolus 500cc x1 -Hydrocortisone 50mg Q8H for refractory septic shock -Nephrology consulted for MARISOL -Full Code Plan discussed with: STORM Verma DO Mar 21, 2024 13:17
[2024-03-21] MEDS: SODIUM CHLORIDE 0.9% 500 ML IV ONE (14:00)
[2024-03-21] MEDS: VANCOMYCIN 1GM/250ML KIT 250 ML IV SCH (14:15)
[2024-03-21] MEDS: HYDROCORTISONE SOD SUCC 100 MG/2ML INJ VIAL IV SCH ×2 (14:15→21:41)
--- NOTE | 2024-03-21 14:25 | DVHNC2 ---
Procedure - Bronchoscopy procedure note: Indications: Bilateral lower lobe atelectasis, Possible mucous plugging. Medicines: See [facility] [employer] notes. Complications: None Procedure: Patient medications and allergies reviewed. The risks and benefits of the procedure and the sedation options and risk were discussed with the patient's healthcare proxy. All questions were answered and informed consent was obtained. Patient identification and proposed procedure were verified prior to the procedure by the physician, and a nurse, and the respiratory therapist in ICU room. The heart rate, respiratory rate, oxygen saturations, blood pressure, adequacy of pulmonary ventilation, and response to care were monitored throughout the procedure. The physical status of the patient was reassessed after the procedure. After obtaining informed consent, the bronchoscope was introduced through the endotracheal tube and advanced into the trachea bronchial tree of both lungs. The procedure was accomplished without difficulty. The patient tolerated the procedure well. Findings: The trachea is in normal caliber. The lowell is sharp. The tracheobronchial tree of the right lung was examined to at least the first subsegmental level. The bronchial mucosa and anatomy in the right lung are normal. There are no endobronchial lesions. There was copious whitish secretions from right main stem bronchus onward throughout R4-R10. Right middle lobe (RML) Bronchoalveolar lavage (BAL) obtained. RML BAL sent for gram stain and culture, viral culture, fungal culture, and AFB smear and culture. The left upper lobe, lingula, and left lower lobe were examined to at least the first subsegmental level. Bronchial mucosa and anatomy in the left upper lobe and lingula are normal. There were no endobronchial lesions. There was copious whitish secretions from left main stem bronchus onward throughout L6-L10. Mucous plugging removed from L6-L10. There was no active bleeding at the completion of the procedure. Estimated blood loss: Less than 5 mL. Impression: Left lower lobe atelectasis due to mucous plugging Right middle/lower lobe atelectasis due to mucous plugging Mucous plugging from L6-L10 and R4-R10 RML BAL performed Recommendation: Follow-up RML BAL results. Tracheal suctioning Procedure codes: 88593, bronchoscopy, rigid and flexible, including fluoroscopic guidance, one performed; with bronchial endobronchial broncho-alveolar lavage, single or multiple sites PRATIK DORANTES MD Mar 21, 2024 14:24
--- NOTE | 2024-03-21 16:41 | DVHPN2 ---
Progress Note - Dictate Date Seen: Mar 21, 2024 Has the PT tested + for MRSA If YES, has PT been informed?: No Medical Necessity Reason Pt with a Central, PICC or Fol: Yes The following are medically ne: Central Line, Ramachandran Catheter Reason for ramachandran catheter: Strict I&O, Total Immobilization Subjective Patient was seen and evaluated in follow up in the ICU. Patient is intubated and sedated on ventilator. 30% FiO2. Patient underwent bedside bronchoscopy this afternoon by Dr. Jacobson. Echocardiogram showed a normal left ventricular size and dimension. Normal left ventricular systolic function estimated ejection fraction 55%. There is a grade 2 diastolic dysfunction. HGB 9.2, HCT 28.6, K 3.4, C 110, BUN 36, AST 72, ALT 53. vital signs Vital Sign Date Time Temp Pulse Resp B/P (MAP) Pulse Ox O2 Delivery O2 Flow Rate FiO2 03/21/24 14:05 78 18 102/51 (68) 100 30 03/21/24 12:00 Mechanical Ventilator+ 03/21/24 08:00 97.5 207.5 Total Intake and Output 03/20/24 03/20/24 03/21/24 15:00 23:00 07:00 Intake Total 685.25 ml 1037.52 ml 860.33 ml Output Total 350 ml 400 ml Balance 685.25 ml 687.52 ml 460.33 ml medications Current Medications Medications Dose Ordered Sig/Rick Route Start Time Stop Time Status Last Admin Dose Admin Diltiazem HCl 100 ml @ 5 mls/hr Q20H IV 03/18/24 21:00 Propofol 100 ml @ 2.16 mls/hr Q24H IV 03/19/24 00:00 03/21/24 12:53 19.44 MLS/HR Nitroglycerin 0.4 mg Q5MINP PRN SL 03/19/24 00:15 Morphine Sulfate 2 mg Q30M PRN IV 03/19/24 00:15 Albuterol 2.5 mg Q6HR NEB 03/19/24 06:00 03/21/24 12:26 2.5 MG Ipratropium [place] 0.5 mg Q6HP NEB 03/19/24 06:00 03/21/24 12:26 0.5 MG Fentanyl Citrate 250 ml @ 5 mls/hr Q24H IV 03/19/24 04:45 03/21/24 12:55 35 MLS/HR Norepinephrine Bitartrate 250 ml @ 3.75 mls/hr Q24H IV 03/19/24 05:45 03/21/24 08:45 18.75 MLS/HR Midazolam HCl 50 ml @ 5 mls/hr Q10H IV 03/19/24 06:00 03/21/24 11:05 8 MLS/HR Piperacillin Sod/ Tazobactam Sod 100 ml @ 25 mls/hr Q8HR IV 03/19/24 10:15 03/21/24 05:26 25 MLS/HR Vancomycin HCl 0 ml @ 0 mls/hr UD IV 03/19/24 10:30 Heparin Sodium/ Dextrose 250 ml @ 6 mls/hr Q24H IV 03/19/24 15:28 03/20/24 09:41 6 MLS/HR Pantoprazole Sodium 40 mg DAILY IV 03/20/24 13:15 03/21/24 11:04 40 MG Vancomycin HCl 250 ml @ 250 mls/hr Q18H IV 03/21/24 14:00 Hydrocortisone Sodium Succinate 50 mg Q8HR IV 03/21/24 11:30 objective GENERAL: Intubated on ventilator. LUNGS: Decreased breath sounds. CARDIOVASCULAR: Heart sounds are good. ABDOMEN: Soft. laboratory and microbiology Laboratory Tests 03/21/24 10:59 03/21/24 05:00 Test 03/21/24 10:59 Range/Units Serum Glucose 104 74-106 mg/dL Problem List Acute hypoxic respiratory failure. Septic shock. NSTEMI. Acute Respiratory Failure. Elevated LFTs. Pneumonia, likely gram negative. Acute metabolic encephalopathy. Marijuana use. Assessment/Plan Continued all current supportive medical care. Diltiazem. Heparin drip per protocol. Morphine for pain management. Vasopressors for hemodynamic support. IV antibiotics as ordered. Additional plan as per the hospital course. Critical care time of 45 minutes provided to include time spent evaluation of patient at bedside, when appropriate patient/family education for diagnosis, treatment plan, review of pertinent medical information and discussion of care with specialty providers and PCP. Mechanical ventilator parameters, treatment and adjustments have personally been reviewed by me and treatment plan by beater lead has also been reviewed. Plan discussed with: SACHA Bridges MD Mar 21, 2024 14:20
--- NOTE | 2024-03-21 19:24 | DVH ---
CHEST RADIOGRAPH Indication: S/P BRONCHOSCOPY Technique: Single frontal view of the chest was obtained Comparison: XY CHEST PORTABLE on DOS: 03/21/24, XY CHEST PORTABLE on DOS: 03/20/24, XY CHEST XRAY 1 V IEW on DOS: 03/19/24 FINDINGS: Lines and Tubes: Endotracheal tube 5.2 cm above the lowell. Enteric tube below the left diaphragm in the stomach. Lungs: Patchy bibasilar infiltrates are noted right worse than left Pleura: No effusion. No pneumothorax. Cardiomediastinal contours: Unremarkable Bones: Bilateral shoulder prosthesis are in place. IMPRESSION: 1. Endotracheal tube 5.2 cm above the lowell. 2. Enteric tube below the left diaphragm in the stomach 3. Bilateral shoulder prosthesis in place 4. Bibasilar airspace disease right worse than left
--- NOTE | 2024-03-21 19:41 | DVHINCON2 ---
Date of service: Mar 21, [address] Rollins Reason for Consultation MARISOL History of Present Illness Mr. Fuentes is a 73-year-old male admitted to the hospital with rapid A. fib, NSTEMI, septic shock. Current causation requested for evaluation and management of acute kidney injury. She was seen in the [facility], patient's RN was at bedside during my evaluation. His conical course has been noted for being transferred from [facility] to [facility] where he required intubation for airway protection. He currently is requiring vasopressor support. All the history was obtained to the chart. Past Medical History hypertension History of CVA Allergies: Coded Allergies: NO KNOWN ALLERGIES (Unverified , 03/18/24) Home Meds Reported Medications Duloxetine Hcl (Cymbalta) 60 Mg Cap, 60 MG PO DAILY, CAP 03/20/24 Tamsulosin Hcl (Tamsulosin Hcl) 0.4 Mg Cap, 0.8 MG PO QPM, MG 03/20/24 Atorvastatin Calcium (Lipitor) 40 Mg Tab, 40 MG PO DAILY, TAB 03/20/24 Omeprazole (Omeprazole Dr) 40 Mg Cap, 40 MG PO DAILY, CAP 03/20/24 Amitriptyline Hcl (Amitriptyline Hcl) 10 Mg Tab, 10 MG PO HS, MG 03/20/24 Tizanidine Hydrochloride (Zanaflex) 4 Mg Tab, 1 TAB PO TID, TAB 03/20/24 Prednisone (Prednisone) 5 Mg Tab, 5 MG PO Q6H, TAB 03/20/24 Tramadol HCl (Tramadol HCl) 50 Mg Tab, 50 MG PO Q8H PRN for PAIN SCALE 1 THRU 6, TAB 03/20/24 Lorazepam (Lorazepam) 1 Mg Tab, 1 MG PO HS PRN for ANXIETY, TAB 03/20/24 Current Medications Current Medications Medications (Trade) Dose Ordered Sig/Rick Route PRN Reason Start Time Stop Time Status Last Admin Vancomycin HCl 250 ml @ 250 mls/hr Q18H IV 03/21/24 14:00 03/21/24 14:15 Hydrocortisone Sodium Succinate (Solu-CORTEF INJECTION) 50 mg Q8HR IV 03/21/24 11:30 03/21/24 14:55 DC 03/21/24 14:15 Hydrocortisone Sodium Succinate (Solu-CORTEF INJECTION) 50 mg Q8HR IV 03/21/24 22:00 Potassium Chloride 100 ml @ 50 mls/hr Q2H IV 03/21/24 18:00 03/21/24 21:59 Family History: Cardiovascular disease G8 MOTHER Review of Systems unable to be obtained, patient currently intubated H&P Exam Vital Signs/I&O Vital Sign Date Time Temp Pulse Resp B/P (MAP) Pulse Ox O2 Delivery O2 Flow Rate FiO2 03/21/24 18:45 98.1 82 18 105/54 (71) 95 208.6 03/21/24 18:20 30 03/21/24 18:00 Mechanical Ventilator+ Intake and Output 03/20/24 03/21/24 19:00 07:00 Intake Total 1024.01 ml 1611.28 ml Output Total 350 ml 400 ml Balance 674.01 ml 1211.28 ml Intake Oral 0 ml 0 ml IV Total 1024.01 ml 1611.28 ml Tube Feeding 0 ml 0 ml Output Urine Total 350 ml 400 ml Physical Exam gen: intubated and sedated heent: + ett, nc lungs: coarse breath sounds cvs: no rub abd: soft exT: + edema skin: no petechiae neuro: sedated Labs/Diagnostic Data Labs/Diagnostic Data Laboratory Tests Test 03/21/24 10:59 03/21/24 07:10 03/21/24 05:00 03/20/24 18:17 Range/Units Sodium Level 140 141 136-145 mmol/L Potassium Level 3.4 L 3.6 3.5-5.1 mmol/L Chloride Level 110 H 108 H 98-107 mmol/L Carbon Dioxide Level 23 23 20-31 mmol/L Anion Gap 7 10 5-15 Blood Urea Nitrogen 36 H 35 H 9-23 mg/dL Creatinine 1.19 1.25 0.700-1.30 mg/dL Glomerular Filtration Rate Calc 65 61 >90 mL/min BUN/Creatinine Ratio 30.3 H 28.0 H 10.0-20.0 Serum Glucose 104 100 74-106 mg/dL Calcium Level 8.9 9.2 8.7-10.4 mg/dL Total Bilirubin 7.3 H 0.2-1.0 mg/dL Aspartate Amino Transferase (AST) 72 H 13-40 U/L Alanine Aminotransferase (ALT) 53 H 7-40 U/L Alkaline Phosphatase 234 H 46-116 U/L Total Protein 6.5 5.7-8.2 g/dL Albumin 3.3 3.2-4.8 g/dL Blood Gas Specimen Type Arterial Blood Gas Sample Site Left radial Blood Gas Patient Temperature 37.0 Arterial Blood Date Drawn [id number] Arterial Blood pH 7.314 L 7.350-7.450 Arterial Blood Partial Pressure CO2 39.5 35.0-48.0 mmHg Arterial Blood Partial Pressure O2 78.9 L 83.0-108.0 mmHg Arterial Blood HCO3 19.6 L 21.0-28.0 mmol/L Arterial Blood Oxygen Saturation 94.4 94.0-98.0 % Arterial Blood Base Excess -6.1 L -2.0-3.0 mmol/L Arterial Blood Oxyhemoglobin 92.7 L 94.0-98.0 % Arterial Blood Carboxyhemoglobin 1.1 0.5-1.5 % Arterial Blood Methemoglobin 0.7 0.0-1.5 % Haim Test Modified Blood Gas Total Hemoglobin 10.10 L 13.5-17.5 g/dL Blood Gas Set Respiration Rate 18.0 Blood Gas Modality Vent - ac Blood Gas Spontaneous Rate 18 FiO2 % 30.0 Blood Gas Tidal Volume 500.0 Blood Gas PEEP or CPAP 5.0 White Blood Count 18.7 H 4.4-10.8 10^3/uL Red Blood Count 3.09 L 4.5-5.90 10^6/uL Hemoglobin 9.2 L 13.5-17.5 g/dL Hematocrit 28.6 L 41.0-53.0 % Mean Corpuscular Volume 92.6 80.0-100.0 fL Mean Corpuscular Hemoglobin 29.9 28.0-32.0 pg Mean Corpuscular Hemoglobin Concent 32.2 32.0-36.0 g/dL Red Cell Distribution Width 21.0 H 11.8-14.3 % Platelet Count 105 L 140-450 10^3/uL Mean Platelet Volume 11.2 H 6.9-10.8 fL Neutrophils (%) (Auto) 75.0 37.0-80.0 % Lymphocytes (%) (Auto) 9.9 L 10.0-50.0 % Monocytes (%) (Auto) 12.2 H 0.0-12.0 % Eosinophils (%) (Auto) 2.4 0.0-7.0 % Basophils (%) (Auto) 0.5 0.0-2.0 % Neutrophils # (Auto) 14.0 H 1.6-8.6 10 ^3/uL Lymphocytes # (Auto) 1.8 0.4-5.4 10 ^3/uL Monocytes # (Auto) 2.3 H 0-1.3 10 ^3/uL Eosinophils # (Auto) 0.4 0-0.8 10 ^3/uL Basophils # (Auto) 0.1 0-0.2 10 ^3/uL Nucleated Red Blood Cells 0.7 % Platelet Estimate Decrea Large Platelets Few Anisocytosis (manual) Slight [place] Cells Few Prothrombin Time 13.4 H 9.3-11.8 sec Prothrombin Time INR 1.29 H 0.9-1.15 Activated Partial Thromboplast Time 67.2 H 24.5-34.5 SEC Random Vancomycin Level 18.9 H 15.3 H 5-10 ug/mL Test 03/20/24 09:36 03/20/24 07:50 03/20/24 03:30 03/19/24 21:24 Range/Units Prothrombin Time 13.9 H 14.0 H 14.6 H 9.3-11.8 sec Prothrombin Time INR 1.34 H 1.35 H 1.41 H 0.9-1.15 Activated Partial Thromboplast Time 67.3 H 64.5 H 65.6 H 24.5-34.5 SEC Creatinine 1.23 1.05 0.700-1.30 mg/dL Glomerular Filtration Rate Calc 62 75 >90 mL/min Vancomycin Level Trough 20.7 H 5-10 ug/mL Blood Gas Specimen Type Arterial Blood Gas Sample Site Left radial Blood Gas Patient Temperature 37.0 Arterial Blood Date Drawn [id number] Arterial Blood pH 7.316 L 7.350-7.450 Arterial Blood Partial Pressure CO2 39.5 35.0-48.0 mmHg Arterial Blood Partial Pressure O2 77.2 L 83.0-108.0 mmHg Arterial Blood HCO3 19.7 L 21.0-28.0 mmol/L Arterial Blood Oxygen Saturation 93.9 L 94.0-98.0 % Arterial Blood Base Excess -6.0 L -2.0-3.0 mmol/L Arterial Blood Oxyhemoglobin 92.1 L 94.0-98.0 % Arterial Blood Carboxyhemoglobin 1.4 0.5-1.5 % Arterial Blood Methemoglobin 0.5 0.0-1.5 % Haim Test Modified Blood Gas Total Hemoglobin 9.80 L 13.5-17.5 g/dL Blood Gas Set Respiration Rate 18.0 Blood Gas Modality Vent - ac FiO2 % 30.0 Blood Gas Tidal Volume 500.0 Blood Gas PEEP or CPAP 5.0 White Blood Count 20.1 #H 4.4-10.8 10^3/uL Red Blood Count 3.06 L 4.5-5.90 10^6/uL Hemoglobin 9.3 L 13.5-17.5 g/dL Hematocrit 27.8 #L 41.0-53.0 % Mean Corpuscular Volume 90.8 80.0-100.0 fL Mean Corpuscular Hemoglobin 30.3 28.0-32.0 pg Mean Corpuscular Hemoglobin Concent 33.3 32.0-36.0 g/dL Red Cell Distribution Width 20.4 H 11.8-14.3 % Platelet Count 117 L 140-450 10^3/uL Mean Platelet Volume 10.5 6.9-10.8 fL Neutrophils (%) (Auto) 86.4 H 37.0-80.0 % Lymphocytes (%) (Auto) 5.1 L 10.0-50.0 % Monocytes (%) (Auto) 7.9 0.0-12.0 % Eosinophils (%) (Auto) 0.4 0.0-7.0 % Basophils (%) (Auto) 0.2 0.0-2.0 % Neutrophils # (Auto) 17.3 H 1.6-8.6 10 ^3/uL Lymphocytes # (Auto) 1.0 0.4-5.4 10 ^3/uL Monocytes # (Auto) 1.6 H 0-1.3 10 ^3/uL Eosinophils # (Auto) 0.1 0-0.8 10 ^3/uL Basophils # (Auto) 0 0-0.2 10 ^3/uL Nucleated Red Blood Cells 0.6 % Haptoglobin 56 34-355 mg/dL Sodium Level 142 136-145 mmol/L Potassium Level 3.4 L 3.5-5.1 mmol/L Chloride Level 109 H 98-107 mmol/L Carbon Dioxide Level 23 20-31 mmol/L Anion Gap 10 5-15 Blood Urea Nitrogen 35 #H 9-23 mg/dL BUN/Creatinine Ratio 33.3 H 10.0-20.0 Serum Glucose 107 H 74-106 mg/dL Calcium Level 9.1 8.7-10.4 mg/dL Total Bilirubin 8.8 H 0.2-1.0 mg/dL Direct Bilirubin 3.6 H <0.3 mg/dL Aspartate Amino Transferase (AST) 101 H 13-40 U/L Alanine Aminotransferase (ALT) 78 H 7-40 U/L Alkaline Phosphatase 237 H 46-116 U/L Lactate Dehydrogenase 424 H 120-246 U/L Total Protein 6.4 5.7-8.2 g/dL Albumin 3.4 3.2-4.8 g/dL Test 03/19/24 13:11 03/19/24 11:22 03/19/24 06:30 03/19/24 02:30 Range/Units Prothrombin Time 14.6 H 14.4 H 9.3-11.8 sec Prothrombin Time INR 1.41 H 1.39 H 0.9-1.15 Activated Partial Thromboplast Time 101.7 *H 63.2 H 24.5-34.5 SEC Blood Gas Specimen Type Arterial Blood Gas Sample Site Right radial Blood Gas Patient Temperature 37.0 Arterial Blood Date Drawn Arterial Blood pH 7.398 7.350-7.450 Arterial Blood Partial Pressure CO2 37.6 35.0-48.0 mmHg Arterial Blood Partial Pressure O2 68.5 L 83.0-108.0 mmHg Arterial Blood HCO3 22.7 21.0-28.0 mmol/L Arterial Blood Oxygen Saturation 92.9 L 94.0-98.0 % Arterial Blood Base Excess -1.9 -2.0-3.0 mmol/L Arterial Blood Oxyhemoglobin 91.7 L 94.0-98.0 % Arterial Blood Carboxyhemoglobin 0.7 0.5-1.5 % Arterial Blood Methemoglobin 0.6 0.0-1.5 % Haim Test Modified Blood Gas Total Hemoglobin 10.30 L 13.5-17.5 g/dL Blood Gas Set Respiration Rate 18.0 Blood Gas Modality Vent - ac Blood Gas Spontaneous Rate 20 FiO2 % 30.0 Blood Gas Tidal Volume 500.0 Blood Gas PEEP or CPAP 5.0 Creatine Kinase 531 H 46-171 U/L Plasma/Serum Blood Alcohol 5.7 <10 mg/dL Hepatitis A IgM Antibody Negative Hepatitis B Surface Antigen Negative Negative Hepatitis B Core IgM Antibody Negative Negative Hepatitis C Antibody Reactive *A Negative White Blood Count 15.8 #H 4.4-10.8 10^3/uL Red Blood Count 3.53 L 4.5-5.90 10^6/uL Hemoglobin 10.5 L 13.5-17.5 g/dL Hematocrit 32.1 L 41.0-53.0 % Mean Corpuscular Volume 90.9 80.0-100.0 fL Mean Corpuscular Hemoglobin 29.6 28.0-32.0 pg Mean Corpuscular Hemoglobin Concent 32.6 32.0-36.0 g/dL Red Cell Distribution Width 20.3 H 11.8-14.3 % Platelet Count 135 L 140-450 10^3/uL Mean Platelet Volume 9.8 6.9-10.8 fL Neutrophils (%) (Auto) 83.2 H 37.0-80.0 % Lymphocytes (%) (Auto) 3.8 L 10.0-50.0 % Monocytes (%) (Auto) 12.9 H 0.0-12.0 % Eosinophils (%) (Auto) 0.0 0.0-7.0 % Basophils (%) (Auto) 0.1 0.0-2.0 % Neutrophils # (Auto) 13.2 H 1.6-8.6 10 ^3/uL Lymphocytes # (Auto) 0.6 0.4-5.4 10 ^3/uL Monocytes # (Auto) 2.0 H 0-1.3 10 ^3/uL Eosinophils # (Auto) 0 0-0.8 10 ^3/uL Basophils # (Auto) 0 0-0.2 10 ^3/uL Nucleated Red Blood Cells 1.2 % Sodium Level 141 136-145 mmol/L Potassium Level 3.7 3.5-5.1 mmol/L Chloride Level 108 H 98-107 mmol/L Carbon Dioxide Level 23 20-31 mmol/L Anion Gap 10 5-15 Blood Urea Nitrogen 23 9-23 mg/dL Creatinine 0.84 0.700-1.30 mg/dL Glomerular Filtration Rate Calc 92 >90 mL/min BUN/Creatinine Ratio 27.4 H 10.0-20.0 Serum Glucose 173 H 74-106 mg/dL Calcium Level 9.7 8.7-10.4 mg/dL Total Bilirubin 10.8 H 0.2-1.0 mg/dL Aspartate Amino Transferase (AST) 155 H 13-40 U/L Alanine Aminotransferase (ALT) 98 H 7-40 U/L Alkaline Phosphatase 289 H 46-116 U/L Total Protein 7.8 5.7-8.2 g/dL Albumin 4.1 3.2-4.8 g/dL HIV (1&2) Antibody Negative Negative Test 03/19/24 01:02 03/19/24 00:13 03/18/24 23:06 03/18/24 22:52 Range/Units Blood Gas Specimen Type Arterial Arterial Blood Gas Sample Site Left radial Right radial Blood Gas Patient Temperature 37.0 37.0 Arterial Blood Date Drawn [id number] Arterial Blood pH 7.328 L 7.376 7.350-7.450 Arterial Blood Partial Pressure CO2 46.4 42.1 35.0-48.0 mmHg Arterial Blood Partial Pressure O2 265.4 H 70.6 L 83.0-108.0 mmHg Arterial Blood HCO3 23.8 24.1 21.0-28.0 mmol/L Arterial Blood Oxygen Saturation 99.8 H 92.9 L 94.0-98.0 % Arterial Blood Base Excess -2.3 L -1.1 -2.0-3.0 mmol/L Arterial Blood Oxyhemoglobin 98.4 H 91.5 L 94.0-98.0 % Arterial Blood Carboxyhemoglobin 0.7 1.0 0.5-1.5 % Arterial Blood Methemoglobin 0.7 0.5 0.0-1.5 % Haim Test Modified Yes Blood Gas Total Hemoglobin 11.70 L 11.10 L 13.5-17.5 g/dL Blood Gas Set Respiration Rate 18.0 Blood Gas Modality Vent - ac Nasal cannula FiO2 % 100.0 44.0 Blood Gas Tidal Volume 500.0 Blood Gas PEEP or CPAP 5.0 Troponin I High Sensitivity 4381 *H </=54 ng/L Lactic Acid Level 1.5 0.4-2.0 mmol/L Blood Gas Liter Flow 6.00 Blood Gas Spontaneous Rate 18 Test 03/18/24 22:35 03/18/24 22:19 03/18/24 22:18 03/18/24 21:20 Range/Units Urine Color Light-orange Yellow Urine Clarity Turbid H Clear Urine pH 5.5 5.0-9.0 Urine Specific [place] 1.017 1.001-1.035 Urine Protein 1+ H Negative Urine Ketones 1+ H Negative Urine Blood 3+ H Negative /uL Urine Nitrite Negative Negative Urine Bilirubin Negative Negative Urine Urobilinogen Normal Negative mg/dL Urine Leukocyte Esterase 1+ Negative /uL Urine RBC 2020 0 - 3 /hpf Urine WBC 70 0 - 3 /hpf Urine Squamous Epithelial Cells None seen <5 /hpf Urine Bacteria Mod H None Seen /hpf Urine Mucus Few None Seen Urine Glucose Normal Normal mg/dL Urine Opiates Screen Pos NEGATIVE Urine Fentanyl Screen Neg NEGATIVE Urine Barbiturates Screen Neg NEGATIVE Urine Phencyclidine Screen Neg NEGATIVE Urine Amphetamines Screen Neg NEGATIVE Urine Benzodiazepines Screen Pos NEGATIVE Urine Cocaine Screen Neg NEGATIVE Urine Cannabinoids Screen Pos NEGATIVE Prothrombin Time 13.4 H 9.3-11.8 sec Prothrombin Time INR 1.29 H 0.9-1.15 Activated Partial Thromboplast Time 28.2 24.5-34.5 SEC Troponin I High Sensitivity 4654 *H 4440 *H </=54 ng/L White Blood Count 11.6 H 4.4-10.8 10^3/uL Red Blood Count 3.69 L 4.5-5.90 10^6/uL Hemoglobin 10.9 L 13.5-17.5 g/dL Hematocrit 33.8 L 41.0-53.0 % Mean Corpuscular Volume 91.6 80.0-100.0 fL Mean Corpuscular Hemoglobin 29.6 28.0-32.0 pg Mean Corpuscular Hemoglobin Concent 32.3 32.0-36.0 g/dL Red Cell Distribution Width 20.6 H 11.8-14.3 % Platelet Count 136 L 140-450 10^3/uL Mean Platelet Volume 10.0 6.9-10.8 fL Neutrophils (%) (Auto) 77.7 37.0-80.0 % Lymphocytes (%) (Auto) 4.5 L 10.0-50.0 % Monocytes (%) (Auto) 17.2 H 0.0-12.0 % Eosinophils (%) (Auto) 0.3 0.0-7.0 % Basophils (%) (Auto) 0.3 0.0-2.0 % Neutrophils # (Auto) 9.0 H 1.6-8.6 10 ^3/uL Lymphocytes # (Auto) 0.5 0.4-5.4 10 ^3/uL Monocytes # (Auto) 2.0 H 0-1.3 10 ^3/uL Eosinophils # (Auto) 0 0-0.8 10 ^3/uL Basophils # (Auto) 0 0-0.2 10 ^3/uL Nucleated Red Blood Cells 1.4 % Sodium Level 141 136-145 mmol/L Potassium Level 3.9 3.5-5.1 mmol/L Chloride Level 110 H 98-107 mmol/L Carbon Dioxide Level 20 20-31 mmol/L Anion Gap 11 5-15 Blood Urea Nitrogen 20 9-23 mg/dL Creatinine 0.73 0.700-1.30 mg/dL Glomerular Filtration Rate Calc 96 >90 mL/min BUN/Creatinine Ratio 27.4 H 10.0-20.0 Serum Glucose 103 74-106 mg/dL Lactic Acid Level 3.1 *H 0.4-2.0 mmol/L Calcium Level 9.9 8.7-10.4 mg/dL Total Bilirubin 10.5 H 0.2-1.0 mg/dL Aspartate Amino Transferase (AST) 166 H 13-40 U/L Alanine Aminotransferase (ALT) 102 H 7-40 U/L Alkaline Phosphatase 296 H 46-116 U/L Ammonia < 10 L 11-32 umol/L B-Type Natriuretic Peptide 905.58 0-100 pg/mL Total Protein 7.8 5.7-8.2 g/dL Albumin 4.1 3.2-4.8 g/dL Lipase 61 H 12-53 U/L Microbiology Date/Time Source Procedure Growth Status 03/19/24 14:05 Nose MRSA Screen - Final Complete 03/19/24 00:11 Sputum Gram Stain - Final Complete 03/19/24 00:11 Respiratory Culture - Final Klebsiella pneumoniae Complete Assessment IMP: 1) Hemodynamically mediated acute kidney injury and vasomotor nephropathy 2) CKD IIIb? possibly secondary to underlying hypertension 3) NSTEMI 4) Septic shock 5) A.Fib REC: - will check urine studies, serial chemistry panels - We will replete for mild hypokalemia - Loop diuretic on an as-needed basis - General recommendations to avoid NSAIDs, intravenous contrast studies. If patient taken to [facility] for diagnostic and/or therapeutic purpose, risk of severity of acute kidney injury due to contrast exposure To correlate with volume of iodinated contrast required. - will continue to follow closely with you. Thank you for the consultation. Plan discussed with: Other PANKAJ BAI MD Mar 21, 2024 19:41
[2024-03-21] MEDS: POTASSIUM CHL 20MEQ/100ML 100 ML IV SCH (20:22)
--- NOTE | 2024-03-21 20:22 | DVHPN2 ---
Progress Note - Dictate Date Seen: Mar 21, 2024 Has the PT tested + for MRSA If YES, has PT been informed?: No Medical Necessity Reason Pt with a Central, PICC or Fol: Yes The following are medically ne: Central Line, Ramachandran Catheter Reason for armachandran catheter: Strict I&O, Total Immobilization Subjective Patient seen and examined at bedside. Sedated, intubated on mechanical ventilator. Overnight events reviewed. vital signs Vital Sign Date Time Temp Pulse Resp B/P (MAP) Pulse Ox O2 Delivery O2 Flow Rate FiO2 03/21/24 18:45 98.1 82 18 105/54 (71) 95 208.6 03/21/24 18:20 30 03/21/24 18:00 Mechanical Ventilator+ Total Intake and Output 03/20/24 03/20/24 03/21/24 15:00 23:00 07:00 Intake Total 685.25 ml 1037.52 ml 912.52 ml Output Total 350 ml 400 ml Balance 685.25 ml 687.52 ml 512.52 ml medications Current Medications Medications Dose Ordered Sig/Rick Route Start Time Stop Time Status Last Admin Dose Admin Diltiazem HCl 100 ml @ 5 mls/hr Q20H IV 03/18/24 21:00 Propofol 100 ml @ 2.16 mls/hr Q24H IV 03/19/24 00:00 03/21/24 17:53 17.28 MLS/HR Nitroglycerin 0.4 mg Q5MINP PRN SL 03/19/24 00:15 Morphine Sulfate 2 mg Q30M PRN IV 03/19/24 00:15 Albuterol 2.5 mg Q6HR NEB 03/19/24 06:00 03/21/24 18:19 2.5 MG Ipratropium [place] 0.5 mg Q6HP NEB 03/19/24 06:00 03/21/24 18:19 0.5 MG Fentanyl Citrate 250 ml @ 5 mls/hr Q24H IV 03/19/24 04:45 03/21/24 12:55 35 MLS/HR Norepinephrine Bitartrate 250 ml @ 3.75 mls/hr Q24H IV 03/19/24 05:45 03/21/24 08:45 18.75 MLS/HR Midazolam HCl 50 ml @ 5 mls/hr Q10H IV 03/19/24 06:00 03/21/24 17:53 7 MLS/HR Piperacillin Sod/ Tazobactam Sod 100 ml @ 25 mls/hr Q8HR IV 03/19/24 10:15 03/21/24 14:33 25 MLS/HR Vancomycin HCl 0 ml @ 0 mls/hr UD IV 03/19/24 10:30 Heparin Sodium/ Dextrose 250 ml @ 6 mls/hr Q24H IV 03/19/24 15:28 03/21/24 17:52 6 MLS/HR Pantoprazole Sodium 40 mg DAILY IV 03/20/24 13:15 03/21/24 11:04 40 MG Vancomycin HCl 250 ml @ 250 mls/hr Q18H IV 03/21/24 14:00 03/21/24 14:15 250 MLS/HR Hydrocortisone Sodium Succinate 50 mg Q8HR IV 03/21/24 22:00 Potassium Chloride 100 ml @ 50 mls/hr Q2H IV 03/21/24 18:00 03/21/24 21:59 objective Gen.: Patient lying in bed in medical ICU. Sedated, intubated on mechanical ventilator. Head: Normocephalic, atraumatic. Eyes: PERRLA. Ears: Normal external anatomy. Throat: Endotracheal tube and orogastric tube in place. Neck: Supple, trachea midline. Chest: Transmitted breath sounds bilaterally. Decreased air entry bilaterally. No wheezing. Bibasilar crackles. Cardiovascular: Positive S1, positive S2. Regular rate and rhythm. Abdomen: Positive bowel sounds in all 4 quadrants. Soft, nontender, nondistended. : Ramachandran in place. Normal external genitalia. Rectal: Deferred. Skin: Warm, dry. Intact. Extremities: 2+ radial pulses bilaterally. No lower extremity edema. Neuro: Sedated. laboratory and microbiology Laboratory Tests 03/21/24 10:59 03/21/24 05:00 Test 03/21/24 10:59 Range/Units Serum Glucose 104 74-106 mg/dL Assessment/Plan Impression: Acute hypoxic respiratory failure On mechanical ventilator Pneumonia, likely gram negative Acute metabolic encephalopathy Non-ST elevation NC Marijuana use. Events: Remains on vent support On AC mode; RR 18, VT 500, PEEP 5, FiO2 of 30% On heparin drip for NSTEMI. Sedated on Propofol, Versed, Fentanyl. Pressors for hemodynamic support Levophed 10 mcg/min Titrate to keep mean arterial pressure greater than 65 mmHg. Increased pressor requirements WBC trending down - 20.1 --> 18.7 K Continue antibiotics Cardiology recommendations appreciated. Potassium supplementation Monitor renal function Monitor electrolytes. Supplement as necessary. S/p therapeutic bronchoscopy today w/ RML BAL - Mucous plugging from L6-L10 and R4-R10 See separate procedure note for details. Taper sedation as tolerated OK for Precedex drip for agitation CPAP trial in AM. Labs and imaging reviewed. Rest of plan as noted below. Plan: s/p intubation on mechanical ventilator. CXR image and report reviewed. Devices in place. Right lower lobe opacities. ABG reviewed, compensated. On AC mode; RR 18, VT 500, PEEP 5, FiO2 of 30% Titrate FIO2 to keep O2 saturation above 90%. VAP bundle. Daily ABG and CXR while intubated Sedate for ventilator synchrony Pressors for hemodynamic support Titrate to keep mean arterial pressure greater than 65 mmHg. Heparin drip for elevated troponin/NSTEMI Follow up Cardiology recs Continue bronchodilators. Continue antibiotics. Leukocytosis - monitor WBC Monitor renal function Monitor electrolytes. Supplement as necessary. Monitor ins and outs. Maintain euvolemia. Counseled against marijuana use. GI prophylaxis. DVT prophylaxis. Prognosis: Poor given patient's multiple co-morbidities. Condition: Critical Rest of plan per hospitalist and other consultants. A total of 35 minutes of critical care time was spent reviewing the patient record, examining the patient, making a diagnostic and therapeutic plan, discussing this plan with the medical personnel, following up on diagnostic studies and following the patient for clinical stability excluding any and all procedures. At least 50% of this time was spent in direct, [id number] contact. Thank you, Dr. Hahn, for allowing me to participate in this patient's care. Further recommendations will depend on the patient's clinical course. Please do not hesitate to contact me if you have any questions or concerns. This medical document was created using an electronic medical record system with [employer] system. Although these documentations are being carefully reviewed, there may still be some phonetic and typographical changes. The errors are purely typographical, due to imperfection on the software program, and do not reflect any compromise in the patient's medical care. Plan discussed with: Other (JESUS Landon) Critical Care Time(min): 35 PRATIK DORANTES MD Mar 21, 2024 20:22
--- NOTE | 2024-03-21 21:05 | DVH ---
CHEST RADIOGRAPH Indication: ET tube was advanced Technique: Single frontal view of the chest was obtained Comparison: XY CHEST PORTABLE on DOS: 03/21/24, XY CHEST PORTABLE on DOS: 03/21/24, XY CHEST PORTABLE on DOS: 03/20/24 FINDINGS: Lines and Tubes: Endotracheal tube is approximately 4 cm above [place]. Lungs: Bilateral perihilar infiltrates and bibasilar infiltrates and possible small effusions Pleura: No effusion. No pneumothorax. Cardiomediastinal contours: Unremarkable Bones: Bilateral shoulder prosthesis in place. IMPRESSION: 1. Endotracheal tube 4 cm above the [place]. 2. Bilateral perihilar and bibasilar infiltrates and pleural effusions. 3. Bilateral shoulder prostheses in place.
[2024-03-21 23:58] LABS: Cannabinoid Screen, Urine Pos (NEGATIVE)
[2024-03-22] VITALS (105 sets, daily range): BP systolic 79–129; BP diastolic 43–64; PULSE 71–90; RESP 15–18; TEMP 96.6–99.9; O2SAT 92–100
[2024-03-22 00:28] LABS: Amphetamine Screen, Urine Neg (NEGATIVE); Barbiturate Scree,Urine Neg (NEGATIVE); Benzodiazephine Screen, Urine Pos (NEGATIVE); Cocaine Screen, Urine Neg (NEGATIVE); Opiate Scree,Urine Neg (NEGATIVE); Phencyclidine Screen, Urine Neg (NEGATIVE)
[2024-03-22 02:03] LABS: Sodium Urine < 10 mmol/L (40-220)
[2024-03-22 02:05] LABS: Creatinine, Urine 70.84 mg/dL (30.0-125.0)
[2024-03-22 05:28] LABS: Hematocrit 25.7 % (41.0-53.0); Hemoglobin 8.3 g/dL (13.5-17.5); Mean Corpuscular Hemoglobin 29.7 pg (28.0-32.0); Mean Corpuscular Hgb Conc. 32.4 g/dL (32.0-36.0); Mean Corpuscular Volume 91.6 fL (80.0-100.0)
[2024-03-22 05:31] LABS: Basophils # (auto) 0 10 ^3/uL (0-0.2); Basophils % (auto) 0.4 % (0.0-2.0); Eosinophils # (auto) 0 10 ^3/uL (0-0.8); Eosinophils % (auto) 0.3 % (0.0-7.0); Lymphocytes # (auto) 1.2 10 ^3/uL (0.4-5.4); Lymphocytes % (auto) 11.1 % (10.0-50.0); Monocytes # (auto) 1.6 10 ^3/uL (0-1.3); Monocytes % (auto) 15.3 % (0.0-12.0); Neutrophils # (auto) 7.8 10 ^3/uL (1.6-8.6); Neutrophils % (auto) 72.9 % (37.0-80.0); Nucleated Red Blood Cells % 0.7 %; Platelet Count (auto) 105 10^3/uL (140-450); White Blood Cell 10.7 10^3/uL (4.4-10.8)
[2024-03-22 05:34] LABS: Red Cell Distribution Width 20.8 % (11.8-14.3)
[2024-03-22 05:44] LABS: Calcium 8.9 mg/dL (8.7-10.4); Potassium 4.4 mmol/L (3.5-5.1); Sodium 143 mmol/L (136-145)
[2024-03-22 05:45] LABS: Anion Gap 8 (5-15); Carbon Dioxide 24 mmol/L (20-31)
[2024-03-22 05:48] LABS: Chloride 111 mmol/L (98-107); INR 1.28 (0.9-1.15); Prothrombin Time 13.3 sec (9.3-11.8)
[2024-03-22 05:50] LABS: BUN/Creatinine Ratio 28.9 (10.0-20.0); Glucose 103 mg/dL (74-106)
--- NOTE | 2024-03-22 05:50 | DVH ---
EXAM: XY CHEST PORTABLE Indication: intubated patient. routine cxr Technique: Single frontal view of the chest was obtained Comparison: XY CHEST PORTABLE on DOS: 03/21/24, XY CHEST PORTABLE on DOS: 03/21/24, XY CHEST PORTABLE on DOS: 03/21/24, XY CHEST PORTABLE on DOS: 03/20/24, XY CHEST XRAY 1 VIEW on DOS: 03/19/24, XY CHES T PORTABLE on DOS: 03/21/24 FINDINGS: Lines and Tubes: Endotracheal tube is approximately 4 cm above [place]. Enteric tube tip projects over the expected region of the stomach. Lungs: Bilateral perihilar infiltrates and bibasilar infiltrates and possible small effusions Pleura: No effusion. No pneumothorax. Cardiomediastinal contours: Unremarkable Bones: Bilateral shoulder prosthesis in place. IMPRESSION: 1. No significant change compared to prior exam allowing for differences in technique.
[2024-03-22 06:16] LABS: Partial Thromboplastin Time 72.2 SEC (24.5-34.5)
[2024-03-22 06:18] LABS: Blood Urea Nitrogen 33 mg/dL (9-23)
[2024-03-22 07:47] LABS: Base Excess -5.5 mmol/L (-2.0-3.0)
[2024-03-22 08:35] LABS: Anisocytosis Slight; Platelet Estimate Decreased
[2024-03-22] MEDS: SODIUM CHLORIDE 0.9% 1,000 ML IV ONE (12:34)
[2024-03-22] MEDS: METOCLOPRAMIDE HCL 5MG/ml INJ 2ml VIAL IV SCH (12:55)
--- NOTE | 2024-03-22 12:59 | DVHPN2 ---
Progress Note - Dictate Date Seen: Mar 22, 2024 Has the PT tested + for MRSA If YES, has PT been informed?: No Medical Necessity Reason Pt with a Central, PICC or Fol: Yes The following are medically ne: Central Line, Ramachandran Catheter Reason for ramachandran catheter: Strict I&O, Total Immobilization Subjective Patient intubated. Sedation off since AM. vital signs Vital Sign Date Time Temp Pulse Resp B/P (MAP) Pulse Ox O2 Delivery O2 Flow Rate FiO2 03/22/24 12:15 98.4 78 18 101/51 (68) 94 209.1 03/22/24 12:03 30 03/22/24 12:00 Mechanical Ventilator+ Total Intake and Output 03/21/24 03/21/24 03/22/24 15:00 23:00 07:00 Intake Total 691.20 ml 1051.23 ml 355.71 ml Output Total 525 ml 550 ml Balance 691.20 ml 526.23 ml -194.29 ml medications Current Medications Medications Dose Ordered Sig/Rick Route Start Time Stop Time Status Last Admin Dose Admin Diltiazem HCl 100 ml @ 5 mls/hr Q20H IV 03/18/24 21:00 Propofol 100 ml @ 2.16 mls/hr Q24H IV 03/19/24 00:00 03/21/24 23:20 10.8 MLS/HR Nitroglycerin 0.4 mg Q5MINP PRN SL 03/19/24 00:15 Morphine Sulfate 2 mg Q30M PRN IV 03/19/24 00:15 Albuterol 2.5 mg Q6HR NEB 03/19/24 06:00 03/22/24 11:57 2.5 MG Ipratropium [place] 0.5 mg Q6HP NEB 03/19/24 06:00 03/22/24 11:57 0.5 MG Fentanyl Citrate 250 ml @ 5 mls/hr Q24H IV 03/19/24 04:45 03/22/24 06:18 7.5 MLS/HR Norepinephrine Bitartrate 250 ml @ 3.75 mls/hr Q24H IV 03/19/24 05:45 03/21/24 20:29 18.75 MLS/HR Midazolam HCl 50 ml @ 5 mls/hr Q10H IV 03/19/24 06:00 03/21/24 17:53 7 MLS/HR Piperacillin Sod/ Tazobactam Sod 100 ml @ 25 mls/hr Q8HR IV 03/19/24 10:15 03/22/24 05:43 25 MLS/HR Vancomycin HCl 0 ml @ 0 mls/hr UD IV 03/19/24 10:30 Heparin Sodium/ Dextrose 250 ml @ 6 mls/hr Q24H IV 03/19/24 15:28 03/21/24 17:52 6 MLS/HR Pantoprazole Sodium 40 mg DAILY IV 03/20/24 13:15 03/22/24 09:55 40 MG Vancomycin HCl 250 ml @ 250 mls/hr Q18H IV 03/21/24 14:00 03/22/24 09:48 250 MLS/HR Hydrocortisone Sodium Succinate 50 mg Q8HR IV 03/21/24 22:00 03/22/24 05:43 50 MG Metoclopramide HCl 10 mg BID IV 03/22/24 12:26 objective General appearance: Intubated Respiratory: Crackles Cardiovascular: Regular rate and rhythm, no murmurs. No edema Abdomen: Soft, nondistended, nontender, bowel sounds present MSK: Appropriate muscle bulk Neuro: A/O x0 laboratory and microbiology Laboratory Tests 03/22/24 04:40 Test 03/22/24 04:40 Range/Units Serum Glucose 103 74-106 mg/dL Problem List 1. Septic Shock 2. NSTEMI 3. Acute Respiratory Failure 2/2 Klebsiella Pneumonia 4. Elevated LFTs 5. Pulmonary Hypertension Plan: -Cardiology consulted, Dr. Goode. TTE shows pulmonary hypertension, grade 2 diastolic dysfunction. -Patient is unstable for left heart cath at this time given pressor support and mechanical ventilation. -Continue heparin drip. -DC vancomycin and Zosyn. Meropenem started due to Klebsiella pneumoniae with concern for ESBL resistance given persistent septic shock. Awaiting susceptibilities. -Blood cultures show NGTD. -Infectious disease consulted. -Pulmonary consulted --Direct Kranthi negative, LDH slightly elevated, haptoglobin normal. LFTs improving. Imaging suggest underlying cirrhosis. Hepatitis C antibody positive. notes he completed treatment in the past and followed by [facility]. -Protonix 40mg IV daily -NS bolus 1L, as responded to fluid challenge yesterday -Hydrocortisone 50mg Q12H for refractory septic shock -Nephrology consulted for MARISOL -SAT today. Sedatives off until awakens. -Full Code Plan discussed with: Other STORM BURGER DO Mar 22, 2024 12:59
[2024-03-22] MEDS: MEROPENEM 1GM IVPB 50 ML IV SCH (14:44)
--- NOTE | 2024-03-22 15:53 | DVHPN2 ---
Progress Note - Dictate Date Seen: Mar 22, 2024 Has the PT tested + for MRSA If YES, has PT been informed?: No Medical Necessity Reason Pt with a Central, PICC or Fol: Yes The following are medically ne: Central Line, Ramachandran Catheter Reason for ramachandran catheter: Strict I&O, Total Immobilization Subjective remains intubated, vasopressor requirement improved vital signs Vital Sign Date Time Temp Pulse Resp B/P (MAP) Pulse Ox O2 Delivery O2 Flow Rate FiO2 03/22/24 15:30 97.9 78 18 106/52 (70) 96 208.2 03/22/24 14:18 30 03/22/24 14:00 Mechanical Ventilator+ Total Intake and Output 03/21/24 03/21/24 03/22/24 15:00 23:00 07:00 Intake Total 691.20 ml 1051.23 ml 355.71 ml Output Total 525 ml 550 ml Balance 691.20 ml 526.23 ml -194.29 ml medications Current Medications Medications Dose Ordered Sig/Rick Route Start Time Stop Time Status Last Admin Dose Admin Diltiazem HCl 100 ml @ 5 mls/hr Q20H IV 03/18/24 21:00 Propofol 100 ml @ 2.16 mls/hr Q24H IV 03/19/24 00:00 03/21/24 23:20 10.8 MLS/HR Nitroglycerin 0.4 mg Q5MINP PRN SL 03/19/24 00:15 Morphine Sulfate 2 mg Q30M PRN IV 03/19/24 00:15 Albuterol 2.5 mg Q6HR NEB 03/19/24 06:00 03/22/24 11:57 2.5 MG Ipratropium [place] 0.5 mg Q6HP NEB 03/19/24 06:00 03/22/24 11:57 0.5 MG Fentanyl Citrate 250 ml @ 5 mls/hr Q24H IV 03/19/24 04:45 03/22/24 06:18 7.5 MLS/HR Norepinephrine Bitartrate 250 ml @ 3.75 mls/hr Q24H IV 03/19/24 05:45 03/21/24 20:29 18.75 MLS/HR Midazolam HCl 50 ml @ 5 mls/hr Q10H IV 03/19/24 06:00 03/21/24 17:53 7 MLS/HR Heparin Sodium/ Dextrose 250 ml @ 6 mls/hr Q24H IV 03/19/24 15:28 03/21/24 17:52 6 MLS/HR Pantoprazole Sodium 40 mg DAILY IV 03/20/24 13:15 03/22/24 09:55 40 MG Metoclopramide HCl 10 mg BID IV 03/22/24 12:26 03/22/24 12:55 10 MG Dexmedetomidine HCl 400 mcg/ Dextrose 100 ml @ 3.84 mls/hr Q24H IV 03/22/24 13:00 Hydrocortisone Sodium Succinate 50 mg Q12HR IV 03/22/24 22:00 Meropenem 50 ml @ 17 mls/hr Q8HR IV 03/22/24 14:00 03/22/24 14:44 17 MLS/HR objective gen: intubated lungs: occ ronchi cvs: no rub ext: no significant edema laboratory and microbiology Laboratory Tests 03/22/24 04:40 Test 03/22/24 04:40 Range/Units Serum Glucose 103 74-106 mg/dL Assessment/Plan IMP: 1) Hemodynamically mediated acute kidney injury and vasomotor nephropathy 2) CKD IIIb? possibly secondary to underlying hypertension 3) NSTEMI 4) Septic shock - improving 5) A.Fib REC: - agree with fluid challenge - stable GFR - will continue to follow. Plan discussed with: Other PANKAJ BAI MD Mar 22, 2024 15:53
--- NOTE | 2024-03-22 16:03 | DVHPN2 ---
Progress Note - Dictate Date Seen: Mar 22, 2024 Has the PT tested + for MRSA If YES, has PT been informed?: No Medical Necessity Reason Pt with a Central, PICC or Fol: Yes The following are medically ne: Central Line, Ramachandran Catheter Reason for ramachandran catheter: Strict I&O, Total Immobilization Subjective Patient was seen and evaluated in follow up in the ICU. Patient is intubated on ventilator. 30% FiO2. Patient is off sedation. Pending CPAP trial once more awake. HGB 8.3, HCT 25.7, PT 13.3, INR 1.28, PTT 72.2, CL 111, BUN 33. vital signs Vital Sign Date Time Temp Pulse Resp B/P (MAP) Pulse Ox O2 Delivery O2 Flow Rate FiO2 03/22/24 12:15 98.4 78 18 101/51 (68) 94 209.1 03/22/24 12:03 30 03/22/24 12:00 Mechanical Ventilator+ Total Intake and Output 03/21/24 03/21/24 03/22/24 15:00 23:00 07:00 Intake Total 691.20 ml 1051.23 ml 355.71 ml Output Total 525 ml 550 ml Balance 691.20 ml 526.23 ml -194.29 ml medications Current Medications Medications Dose Ordered Sig/Rick Route Start Time Stop Time Status Last Admin Dose Admin Diltiazem HCl 100 ml @ 5 mls/hr Q20H IV 03/18/24 21:00 Propofol 100 ml @ 2.16 mls/hr Q24H IV 03/19/24 00:00 03/21/24 23:20 10.8 MLS/HR Nitroglycerin 0.4 mg Q5MINP PRN SL 03/19/24 00:15 Morphine Sulfate 2 mg Q30M PRN IV 03/19/24 00:15 Albuterol 2.5 mg Q6HR NEB 03/19/24 06:00 03/22/24 11:57 2.5 MG Ipratropium [place] 0.5 mg Q6HP NEB 03/19/24 06:00 03/22/24 11:57 0.5 MG Fentanyl Citrate 250 ml @ 5 mls/hr Q24H IV 03/19/24 04:45 03/22/24 06:18 7.5 MLS/HR Norepinephrine Bitartrate 250 ml @ 3.75 mls/hr Q24H IV 03/19/24 05:45 03/21/24 20:29 18.75 MLS/HR Midazolam HCl 50 ml @ 5 mls/hr Q10H IV 03/19/24 06:00 03/21/24 17:53 7 MLS/HR Heparin Sodium/ Dextrose 250 ml @ 6 mls/hr Q24H IV 03/19/24 15:28 03/21/24 17:52 6 MLS/HR Pantoprazole Sodium 40 mg DAILY IV 03/20/24 13:15 03/22/24 09:55 40 MG Metoclopramide HCl 10 mg BID IV 03/22/24 12:26 03/22/24 12:55 10 MG Dexmedetomidine HCl 400 mcg/ Dextrose 100 ml @ 3.84 mls/hr Q24H IV 03/22/24 13:00 Hydrocortisone Sodium Succinate 50 mg Q12HR IV 03/22/24 22:00 Meropenem 50 ml @ 17 mls/hr Q8HR IV 03/22/24 14:00 UNV objective GENERAL: Intubated on ventilator. LUNGS: Decreased breath sounds. CARDIOVASCULAR: Heart sounds are good. ABDOMEN: Soft. laboratory and microbiology Laboratory Tests 03/22/24 04:40 Test 03/22/24 04:40 Range/Units Serum Glucose 103 74-106 mg/dL Problem List Acute hypoxic respiratory failure. Septic shock. NSTEMI. Acute Respiratory Failure. Elevated LFTs. Pneumonia, likely gram negative. Acute metabolic encephalopathy. Marijuana use. Assessment/Plan Continued all current supportive medical care. Diltiazem. Heparin drip per protocol. Morphine for pain management. Vasopressors for hemodynamic support. IV antibiotics as ordered. Additional plan as per the hospital course. Critical care time of 45 minutes provided to include time spent evaluation of patient at bedside, when appropriate patient/family education for diagnosis, treatment plan, review of pertinent medical information and discussion of care with specialty providers and PCP. Mechanical ventilator parameters, treatment and adjustments have personally been reviewed by me and treatment plan by mold sheet cleaner has also been reviewed. Plan discussed with: Other SACHA HURTADO MD Mar 22, 2024 13:46
--- NOTE | 2024-03-22 20:56 | DVHPN2 ---
Progress Note - Dictate Date Seen: Mar 22, 2024 Has the PT tested + for MRSA If YES, has PT been informed?: No Medical Necessity Reason Pt with a Central, PICC or Fol: Yes The following are medically ne: Central Line, Ramachandran Catheter Reason for ramachandran catheter: Strict I&O, Total Immobilization Subjective Patient seen and examined at bedside. intubated on mechanical ventilator. Overnight events reviewed. vital signs Vital Sign Date Time Temp Pulse Resp B/P (MAP) Pulse Ox O2 Delivery O2 Flow Rate FiO2 03/22/24 20:16 74 18 106/50 (68) 94 30 03/22/24 20:00 Mechanical Ventilator+ 03/22/24 18:45 97.9 97.9 Total Intake and Output 03/21/24 03/21/24 03/22/24 15:00 23:00 07:00 Intake Total 691.20 ml 1051.23 ml 355.71 ml Output Total 525 ml 550 ml Balance 691.20 ml 526.23 ml -194.29 ml medications Current Medications Medications Dose Ordered Sig/Rick Route Start Time Stop Time Status Last Admin Dose Admin Diltiazem HCl 100 ml @ 5 mls/hr Q20H IV 03/18/24 21:00 Propofol 100 ml @ 2.16 mls/hr Q24H IV 03/19/24 00:00 03/21/24 23:20 10.8 MLS/HR Nitroglycerin 0.4 mg Q5MINP PRN SL 03/19/24 00:15 Morphine Sulfate 2 mg Q30M PRN IV 03/19/24 00:15 Albuterol 2.5 mg Q6HR NEB 03/19/24 06:00 03/22/24 18:31 2.5 MG Ipratropium [place] 0.5 mg Q6HP NEB 03/19/24 06:00 03/22/24 18:31 0.5 MG Fentanyl Citrate 250 ml @ 5 mls/hr Q24H IV 03/19/24 04:45 03/22/24 06:18 7.5 MLS/HR Norepinephrine Bitartrate 250 ml @ 3.75 mls/hr Q24H IV 03/19/24 05:45 03/22/24 18:30 11.25 MLS/HR Midazolam HCl 50 ml @ 5 mls/hr Q10H IV 03/19/24 06:00 03/21/24 17:53 7 MLS/HR Heparin Sodium/ Dextrose 250 ml @ 6 mls/hr Q24H IV 03/19/24 15:28 03/22/24 15:57 6 MLS/HR Pantoprazole Sodium 40 mg DAILY IV 03/20/24 13:15 03/22/24 09:55 40 MG Metoclopramide HCl 10 mg BID IV 03/22/24 12:26 03/22/24 12:55 10 MG Dexmedetomidine HCl 400 mcg/ Dextrose 100 ml @ 3.84 mls/hr Q24H IV 03/22/24 13:00 Hydrocortisone Sodium Succinate 50 mg Q12HR IV 03/22/24 22:00 Meropenem 50 ml @ 17 mls/hr Q8HR IV 03/22/24 14:00 03/22/24 14:44 17 MLS/HR objective Gen.: Patient lying in bed in medical ICU. Intubated on mechanical ventilator. Head: Normocephalic, atraumatic. Eyes: PERRLA. Ears: Normal external anatomy. Throat: Endotracheal tube and orogastric tube in place. Neck: Supple, trachea midline. Chest: Transmitted breath sounds bilaterally. Decreased air entry bilaterally. No wheezing. Bibasilar crackles. Cardiovascular: Positive S1, positive S2. Regular rate and rhythm. Abdomen: Positive bowel sounds in all 4 quadrants. Soft, nontender, nondistended. : Ramachandran in place. Normal external genitalia. Rectal: Deferred. Skin: Warm, dry. Intact. Extremities: 2+ radial pulses bilaterally. No lower extremity edema. Neuro: Off sedation laboratory and microbiology Laboratory Tests 03/22/24 04:40 Test 03/22/24 04:40 Range/Units Serum Glucose 103 74-106 mg/dL Assessment/Plan Impression: Acute hypoxic respiratory failure On mechanical ventilator Pneumonia, likely gram negative Acute metabolic encephalopathy Non-ST elevation [place] Marijuana use. Events: Remains on vent support On AC mode; RR 18, VT 500, PEEP 5, FiO2 of 30% On heparin drip for NSTEMI. Off sedation OK to use Precedex for agitation Pressors for hemodynamic support Levophed 6 mcg/min Titrate to keep mean arterial pressure greater than 65 mmHg. Improved pressor requirements WBC trending down Continue antibiotics Cardiology recommendations appreciated. Monitor renal function Monitor electrolytes. Supplement as necessary. Awaiting for mentation to improve for CPAP trial CPAP with PS 8, PEEP of 5 S/p therapeutic bronchoscopy on 03/21/24 with RML BAL - Mucous plugging from L6- L10 and R4-R10 See separate procedure note for details. Labs and imaging reviewed. Rest of plan as noted below. Plan: s/p intubation on mechanical ventilator. CXR image and report reviewed. Devices in place. Right lower lobe opacities. ABG reviewed, compensated. On AC mode; RR 18, VT 500, PEEP 5, FiO2 of 30% Titrate FIO2 to keep O2 saturation above 90%. VAP bundle. Daily ABG and CXR while intubated Off sedation Pressors for hemodynamic support Titrate to keep mean arterial pressure greater than 65 mmHg. Heparin drip for elevated troponin/NSTEMI Follow up Cardiology recs Continue bronchodilators. Continue antibiotics. Leukocytosis - monitor WBC Monitor renal function Monitor electrolytes. Supplement as necessary. Monitor ins and outs. Maintain euvolemia. Counseled against marijuana use. GI prophylaxis. DVT prophylaxis. Prognosis: Poor given patient's multiple co-morbidities. Condition: Critical Rest of plan per hospitalist and other consultants. A total of 35 minutes of critical care time was spent reviewing the patient record, examining the patient, making a diagnostic and therapeutic plan, discussing this plan with the medical personnel, following up on diagnostic studies and following the patient for clinical stability excluding any and all procedures. At least 50% of this time was spent in direct, [id number] contact. Thank you, Dr. Hahn, for allowing me to participate in this patient's care. Further recommendations will depend on the patient's clinical course. Please do not hesitate to contact me if you have any questions or concerns. This medical document was created using an electronic medical record system with [employer] dictation system. Although these documentations are being carefully reviewed, there may still be some phonetic and typographical changes. The errors are purely typographical, due to imperfection on the software program, and do not reflect any compromise in the patient's medical care. Plan discussed with: Other (JESUS Landon) Critical Care Time(min): 35 PRATIK DORANTES MD Mar 22, 2024 20:56
[2024-03-22] MEDS: HYDROCORTISONE SOD SUCC 100 MG/2ML INJ VIAL IV SCH (22:15)
[2024-03-23] VITALS (107 sets, daily range): BP systolic 79–195; BP diastolic 41–123; PULSE 60–182; RESP 9–32; TEMP 97–98.3; O2SAT 85–100
[2024-03-23 04:43] LABS: INR 1.25 (0.9-1.15); Partial Thromboplastin Time 52.9 SEC (24.5-34.5)
[2024-03-23 04:53] LABS: Hematocrit 29.5 % (41.0-53.0); Hemoglobin 9.6 g/dL (13.5-17.5); Mean Corpuscular Hemoglobin 29.9 pg (28.0-32.0); Mean Corpuscular Hgb Conc. 32.6 g/dL (32.0-36.0); Mean Corpuscular Volume 91.7 fL (80.0-100.0); Platelet Count (auto) 119 10^3/uL (140-450); Red Blood Cells 3.22 10^6/uL (4.5-5.90); White Blood Cell 10.5 10^3/uL (4.4-10.8)
[2024-03-23 05:06] LABS: Red Cell Distribution Width 20.9 % (11.8-14.3)
[2024-03-23 05:08] LABS: Band Neutrophils % (manual) 0; Basophils % (manual) 0 (0.0-2.0); Blast Cells 0; Metamyelocytes % 0; Myelocytes % 0; Promyelocytes % 0; Reactive Lymphocytes 0
--- NOTE | 2024-03-23 05:40 | DVH ---
CHEST RADIOGRAPH Indication: ET TUBE PLACEMENT Technique: Single frontal view of the chest was obtained Comparison: XY CHEST PORTABLE on DOS: 03/22/24, XY CHEST PORTABLE on DOS: 03/21/24, XY CHEST PORTABLE on DOS: 03/21/24 IMPRESSION: There is prominence of the cardiac silhouette. Support lines and tubes appear unchanged in satisfact ory position. There are small bilateral pleural effusions with bibasilar increased opacity. No discr ete pneumothorax. Findings appear relatively similar to prior examination with possible increase in l eft pleural effusion.
[2024-03-23 08:44] LABS: Eosinophils % (manual) 3 (0-7); Lymphocytes % (manual) 11 (10.0-50.0); Monocytes % (manual) 9 (0-12)
[2024-03-23 08:47] LABS: Platelet Estimate Decreased
[2024-03-23 10:57] LABS: Base Excess -0.6 mmol/L (-2.0-3.0)
[2024-03-23 11:03] LABS: Calcium 9.1 mg/dL (8.7-10.4); Carbon Dioxide 24 mmol/L (20-31)
[2024-03-23 11:04] LABS: Anion Gap 8 (5-15); BUN/Creatinine Ratio 47.4 (10.0-20.0); Potassium 4.2 mmol/L (3.5-5.1); Total Protein 6.1 g/dL (5.7-8.2)
[2024-03-23 11:16] LABS: Alanine Aminotransferase 48 U/L (7-40); Alkaline Phosphatase 255 U/L (46-116); Aspartate Aminotransferase 107 U/L (13-40); Blood Urea Nitrogen 37 mg/dL (9-23); Chloride 114 mmol/L (98-107); Glucose 111 mg/dL (74-106); Sodium 146 mmol/L (136-145)
--- NOTE | 2024-03-23 11:20 | DVHPN2 ---
Progress Note Date Seen: Mar 23, 2024 Has the PT tested + for MRSA If YES, has PT been informed?: No Medical Necessity Reason Pt with a Central, PICC or Fol: Yes The following are medically ne: Central Line, Ramachandran Catheter Reason for ramachandran catheter: Strict I&O, Total Immobilization Subjective Review of Systems: RESPIRATORY:Abnormal Other Systems: Patient seen and examined by myself today in follow-up, patient remained intubated on ventilator Objective vital signs Vital Sign Date Time Temp Pulse Resp B/P (MAP) Pulse Ox O2 Delivery O2 Flow Rate FiO2 03/23/24 11:09 64 10 96/45 (62) 96 30 03/23/24 10:00 Mechanical Ventilator+ 03/23/24 08:00 97.0 97.0 Total Intake and Output 03/22/24 03/22/24 03/23/24 15:00 23:00 07:00 Intake Total 490.50 ml 240.00 ml 201.0 ml Output Total 550 ml 550 ml Balance 490.50 ml -310.00 ml -349.0 ml medications Current Medications Medications Dose Ordered Sig/Rick Route Start Time Stop Time Status Last Admin Dose Admin Diltiazem HCl 100 ml @ 5 mls/hr Q20H IV 03/18/24 21:00 Propofol 100 ml @ 2.16 mls/hr Q24H IV 03/19/24 00:00 03/21/24 23:20 10.8 MLS/HR Nitroglycerin 0.4 mg Q5MINP PRN SL 03/19/24 00:15 Morphine Sulfate 2 mg Q30M PRN IV 03/19/24 00:15 Albuterol 2.5 mg Q6HR NEB 03/19/24 06:00 03/23/24 06:00 2.5 MG Ipratropium [place] 0.5 mg Q6HP NEB 03/19/24 06:00 03/23/24 06:00 0.5 MG Fentanyl Citrate 250 ml @ 5 mls/hr Q24H IV 03/19/24 04:45 03/22/24 06:18 7.5 MLS/HR Norepinephrine Bitartrate 250 ml @ 3.75 mls/hr Q24H IV 03/19/24 05:45 03/22/24 18:30 11.25 MLS/HR Midazolam HCl 50 ml @ 5 mls/hr Q10H IV 03/19/24 06:00 03/21/24 17:53 7 MLS/HR Heparin Sodium/ Dextrose 250 ml @ 6 mls/hr Q24H IV 03/19/24 15:28 03/22/24 15:57 6 MLS/HR Pantoprazole Sodium 40 mg DAILY IV 03/20/24 13:15 03/23/24 11:02 40 MG Metoclopramide HCl 10 mg BID IV 03/22/24 12:26 03/23/24 11:02 10 MG Dexmedetomidine HCl 400 mcg/ Dextrose 100 ml @ 3.84 mls/hr Q24H IV 03/22/24 13:00 Hydrocortisone Sodium Succinate 50 mg Q12HR IV 03/22/24 22:00 03/22/24 22:15 50 MG Meropenem 50 ml @ 17 mls/hr Q8HR IV 03/22/24 14:00 03/23/24 05:32 17 MLS/HR Examination: LUNGS:Normal, CVS:Normal, MSK:Normal laboratory and microbiology Laboratory Tests 03/23/24 10:25 03/23/24 04:00 Test 03/23/24 10:25 Range/Units Serum Glucose 111 H 74-106 mg/dL Microbiology Date/Time Source Procedure Growth Status 03/21/24 13:47 Bronchial Washings Gram Stain - Final Complete 03/21/24 13:47 Respiratory Culture - Final Klebsiella pneumoniae Complete 03/19/24 14:05 Nose MRSA Screen - Final Complete 03/18/24 23:06 Blood Blood Culture - Preliminary NO GROWTH AFTER 72 HOURS OF INCUBATION. Resulted Problem List/Assessment/Plan Problem List/Assessment/Plan Acute kidney injury superimposed Chronic Kidney Disease secondary hemodynamic mediated, FeNa < 1% CKD stage II possibly secondary to underlying hypertension Chronic diastolic heart failure NSTEMI Septic shock - improving A.Fib with RVR Hypernatremia due to dehydration Recommendations Kidney function is improving Increased urine output Ramachandran catheter Strict I&Os IVF half NS at 75 cc/hour IV antibiotics We will continue to follow up Plan discussed with: Other (Nurse) My Orders My Orders Orders - RENARD BACA MD Procedure Category Date Status Time 03/26 Ns PHA 03/23/24 Verified 11:30 RENARD BACA MD Mar 23, 2024 11:20
[2024-03-23 11:38] LABS: INR 1.27 (0.9-1.15); Prothrombin Time 13.2 sec (9.3-11.8)
--- NOTE | 2024-03-23 12:17 | DVH ---
Date: 03/23/2024 11:21 AM Examination: XY KUB ABDOMEN SINGLE VIEW History: no bowel movement since admission Comparison: None TECHNIQUE: Frontal views of the abdomen was obtained. FINDINGS: Bowel gas pattern is unremarkable. Enteric tube tip projects over the expected region of the stomach. Right flank is collimated from field of view. Catheter projects over the pelvis. Atherosclerotic va scular calcifications are visualized of the abdominal aorta. Left retrocardiac opacity. No acute osseous abnormality identified. IMPRESSION: Nonobstructive bowel gas pattern. Enteric tube in appropriate position.
--- NOTE | 2024-03-23 12:20 | DVHPN2 ---
Progress Note - Dictate Date Seen: Mar 23, 2024 Has the PT tested + for MRSA If YES, has PT been informed?: No Medical Necessity Reason Pt with a Central, PICC or Fol: Yes The following are medically ne: Central Line, Ramachandran Catheter Reason for ramachandran catheter: Strict I&O, Total Immobilization Subjective Patient intubated. Sedation off. vital signs Vital Sign Date Time Temp Pulse Resp B/P (MAP) Pulse Ox O2 Delivery O2 Flow Rate FiO2 03/23/24 11:09 64 10 96/45 (62) 96 30 03/23/24 10:00 Mechanical Ventilator+ 03/23/24 08:00 97.0 97.0 Total Intake and Output 03/22/24 03/22/24 03/23/24 15:00 23:00 07:00 Intake Total 490.50 ml 240.00 ml 201.0 ml Output Total 550 ml 550 ml Balance 490.50 ml -310.00 ml -349.0 ml medications Current Medications Medications Dose Ordered Sig/Rick Route Start Time Stop Time Status Last Admin Dose Admin Diltiazem HCl 100 ml @ 5 mls/hr Q20H IV 03/18/24 21:00 Propofol 100 ml @ 2.16 mls/hr Q24H IV 03/19/24 00:00 03/21/24 23:20 10.8 MLS/HR Nitroglycerin 0.4 mg Q5MINP PRN SL 03/19/24 00:15 Morphine Sulfate 2 mg Q30M PRN IV 03/19/24 00:15 Albuterol 2.5 mg Q6HR NEB 03/19/24 06:00 03/23/24 06:00 2.5 MG Ipratropium [place] 0.5 mg Q6HP NEB 03/19/24 06:00 03/23/24 06:00 0.5 MG Fentanyl Citrate 250 ml @ 5 mls/hr Q24H IV 03/19/24 04:45 03/22/24 06:18 7.5 MLS/HR Norepinephrine Bitartrate 250 ml @ 3.75 mls/hr Q24H IV 03/19/24 05:45 03/22/24 18:30 11.25 MLS/HR Midazolam HCl 50 ml @ 5 mls/hr Q10H IV 03/19/24 06:00 03/21/24 17:53 7 MLS/HR Heparin Sodium/ Dextrose 250 ml @ 6 mls/hr Q24H IV 03/19/24 15:28 03/22/24 15:57 6 MLS/HR Pantoprazole Sodium 40 mg DAILY IV 03/20/24 13:15 03/23/24 11:02 40 MG Metoclopramide HCl 10 mg BID IV 03/22/24 12:26 03/23/24 11:02 10 MG Dexmedetomidine HCl 400 mcg/ Dextrose 100 ml @ 3.84 mls/hr Q24H IV 03/22/24 13:00 Hydrocortisone Sodium Succinate 50 mg Q12HR IV 03/22/24 22:00 03/22/24 22:15 50 MG Meropenem 50 ml @ 17 mls/hr Q8HR IV 03/22/24 14:00 03/23/24 05:32 17 MLS/HR Sodium Chloride 1,000 ml @ 75 mls/hr [id number] IV 03/23/24 11:30 objective General appearance: Intubated Respiratory: Crackles Cardiovascular: Regular rate and rhythm, no murmurs. No edema Abdomen: Soft, nondistended, nontender, bowel sounds present MSK: Appropriate muscle bulk Neuro: A/O x0 laboratory and microbiology Laboratory Tests 03/23/24 10:25 03/23/24 04:00 Test 03/23/24 10:25 Range/Units Serum Glucose 111 H 74-106 mg/dL Problem List 1. Septic Shock 2. NSTEMI 3. Acute Respiratory Failure 2/2 Klebsiella Pneumonia 4. Elevated LFTs 5. Pulmonary Hypertension Plan: -Cardiology consulted, Dr. Goode. TTE shows pulmonary hypertension, grade 2 diastolic dysfunction. -Patient is unstable for left heart cath at this time given pressor support and mechanical ventilation. -Continue heparin drip. -DC vancomycin and Zosyn. Meropenem started due to Klebsiella pneumoniae with concern for ESBL resistance given persistent septic shock. Awaiting susceptibilities. -Blood cultures show NGTD. -Infectious disease consulted. -Pulmonary consulted --Direct Kranthi negative, LDH slightly elevated, haptoglobin normal. LFTs improving. Imaging suggest underlying cirrhosis. Hepatitis C antibody positive. notes he completed treatment in the past and followed by [facility]. -Protonix 40mg IV daily -Hydrocortisone 50mg Q24H for refractory septic shock then dc after today -Tube feeds to be started -Nephrology consulted for MARISOL -SAT today. Sedatives off until awakens. -Full Code Plan discussed with: Other STORM BURGER DO Mar 23, 2024 12:20
[2024-03-23] MEDS: SOD CHL 0.45% 1,000 ML IV SCH (13:20)
--- NOTE | 2024-03-23 14:57 | MEDREC ---
[facility] ASP Intervention Section I [facility] ASP Intervention: Deescalate AB based on CS (PLEASE CONSIDER DE-ESCALATING MEROPENEM ACCORDING TO SUSCEPTIBILITY RESULTS FOR KLEBSIELLA PNEUMONIAE) ERIC TRAYLOR PHARMACIST Mar 23, 2024 14:57
[2024-03-23] MEDS ORDERED: Jevity 1.2 Cal/Fiber 1 Liter GT SCH (19:00)
[2024-03-23] MEDS: AMIODARONE BOLUS KIT 100 ML IV ONE ×2 (20:41→22:17)
[2024-03-23] MEDS: AMIODARONE 450mg/250ml AE 250 ML IV ONE (20:50)
[2024-03-23] MEDS: METOPROLOL TARTRATE 1MG/1ML-5ML VIAL IV ONE ×2 (21:06→21:15)
--- NOTE | 2024-03-23 21:43 | DVHPN2 ---
Progress Note - Dictate Date Seen: Mar 23, 2024 Has the PT tested + for MRSA If YES, has PT been informed?: No Medical Necessity Reason Pt with a Central, PICC or Fol: Yes The following are medically ne: Central Line, Ramachandran Catheter Reason for ramachandran catheter: Strict I&O, Total Immobilization Subjective Patient was seen and evaluated in follow up in the ICU. Patient is intubated on ventilator. 30% FiO2. Sedation off. Patient opens eyes but not able to follow commands. Patient did not tolerate CPAP trial. MRCP unable to be done as patient is intubated. HGB 9.6, HCT 29.5, NA 146, BUN 37, ALT 48, AST 107. vital signs Vital Sign Date Time Temp Pulse Resp B/P (MAP) Pulse Ox O2 Delivery O2 Flow Rate FiO2 03/23/24 20:16 138 23 153/88 (109) 100 100 03/23/24 20:00 Mechanical Ventilator+ 03/23/24 16:00 97.3 97.3 Total Intake and Output 03/22/24 03/22/24 03/23/24 15:00 23:00 07:00 Intake Total 490.50 ml 240.00 ml 201.0 ml Output Total 550 ml 550 ml Balance 490.50 ml -310.00 ml -349.0 ml medications Current Medications Medications Dose Ordered Sig/Rick Route Start Time Stop Time Status Last Admin Dose Admin Diltiazem HCl 100 ml @ 5 mls/hr Q20H IV 03/18/24 21:00 Propofol 100 ml @ 2.16 mls/hr Q24H IV 03/19/24 00:00 03/23/24 20:14 2.16 MLS/HR Nitroglycerin 0.4 mg Q5MINP PRN SL 03/19/24 00:15 Morphine Sulfate 2 mg Q30M PRN IV 03/19/24 00:15 Albuterol 2.5 mg Q6HR NEB 03/19/24 06:00 03/23/24 18:20 2.5 MG Ipratropium [place] 0.5 mg Q6HP NEB 03/19/24 06:00 03/23/24 18:20 0.5 MG Fentanyl Citrate 250 ml @ 5 mls/hr Q24H IV 03/19/24 04:45 03/23/24 20:16 5 MLS/HR Norepinephrine Bitartrate 250 ml @ 3.75 mls/hr Q24H IV 03/19/24 05:45 03/22/24 18:30 11.25 MLS/HR Midazolam HCl 50 ml @ 5 mls/hr Q10H IV 03/19/24 06:00 03/21/24 17:53 7 MLS/HR Heparin Sodium/ Dextrose 250 ml @ 6 mls/hr Q24H IV 03/19/24 15:28 03/23/24 18:28 6 MLS/HR Pantoprazole Sodium 40 mg DAILY IV 03/20/24 13:15 03/23/24 11:02 40 MG Metoclopramide HCl 10 mg BID IV 03/22/24 12:26 03/23/24 11:02 10 MG Dexmedetomidine HCl 400 mcg/ Dextrose 100 ml @ 3.84 mls/hr Q24H IV 03/22/24 13:00 03/23/24 19:43 3.84 MLS/HR Meropenem 50 ml @ 17 mls/hr Q8HR IV 03/22/24 14:00 03/23/24 14:09 17 MLS/HR Sodium Chloride 1,000 ml @ 75 mls/hr [id number] IV 03/23/24 11:30 03/23/24 13:20 75 MLS/HR Enteral Nutritional Formula 1,000 ml 30ML/HR GT 03/23/24 19:00 Amiodarone HCl 250 ml @ 33.333 mls/ hr Q7H30M IV 03/23/24 21:00 03/24/24 02:59 Amiodarone HCl 250 ml @ 16.667 mls/ hr Q15H IV 03/24/24 03:00 objective GENERAL: Intubated on ventilator. LUNGS: Decreased breath sounds. CARDIOVASCULAR: Heart sounds are good. ABDOMEN: Soft. laboratory and microbiology Laboratory Tests 03/23/24 10:25 03/23/24 04:00 Test 03/23/24 10:25 Range/Units Serum Glucose 111 H 74-106 mg/dL Problem List Acute hypoxic respiratory failure. Septic shock. NSTEMI. Acute Respiratory Failure. Elevated LFTs. Pneumonia, likely gram negative. Acute metabolic encephalopathy. Marijuana use. Assessment/Plan Continued all current supportive medical care. Diltiazem. Heparin drip per protocol. Morphine for pain management. Vasopressors for hemodynamic support. IV antibiotics as ordered. Additional plan as per the hospital course. Critical care time of 45 minutes provided to include time spent evaluation of patient at bedside, when appropriate patient/family education for diagnosis, treatment plan, review of pertinent medical information and discussion of care with specialty providers and PCP. Mechanical ventilator parameters, treatment and adjustments have personally been reviewed by me and treatment plan by personal lines sales executive has also been reviewed. Plan discussed with: Other SACHA HURTADO MD Mar 23, 2024 21:43
[2024-03-23] MEDS: AMIODARONE 450mg/250ml AE 250 ML IV SCH (22:17)
[2024-03-23] MEDS: HYDROCORTISONE SOD SUCC 100 MG/2ML INJ VIAL IV ONE (22:24)
[2024-03-23] MEDS: SODIUM CHLORIDE 0.9% 1,000 ML IV ONE (23:15)
[2024-03-23] MEDS: ALBUMIN 25% 100 ML IV ONE (23:19)
--- NOTE | 2024-03-23 23:41 | DVHPN2 ---
Progress Note - Dictate Date Seen: Mar 23, 2024 Has the PT tested + for MRSA If YES, has PT been informed?: No Medical Necessity Reason Pt with a Central, PICC or Fol: Yes The following are medically ne: Central Line, Ramachandran Catheter Reason for ramachandran catheter: Strict I&O, Total Immobilization Subjective Patient seen and examined at bedside. intubated on mechanical ventilator. Overnight events reviewed. vital signs Vital Sign Date Time Temp Pulse Resp B/P (MAP) Pulse Ox O2 Delivery O2 Flow Rate FiO2 03/23/24 22:47 70 19 91/58 (69) 100 75 03/23/24 20:00 Mechanical Ventilator+ 03/23/24 16:00 97.3 97.3 Total Intake and Output 03/22/24 03/22/24 03/23/24 15:00 23:00 07:00 Intake Total 490.50 ml 240.00 ml 201.0 ml Output Total 550 ml 550 ml Balance 490.50 ml -310.00 ml -349.0 ml medications Current Medications Medications Dose Ordered Sig/Rick Route Start Time Stop Time Status Last Admin Dose Admin Diltiazem HCl 100 ml @ 5 mls/hr Q20H IV 03/18/24 21:00 Propofol 100 ml @ 2.16 mls/hr Q24H IV 03/19/24 00:00 03/23/24 20:14 2.16 MLS/HR Nitroglycerin 0.4 mg Q5MINP PRN SL 03/19/24 00:15 Morphine Sulfate 2 mg Q30M PRN IV 03/19/24 00:15 Albuterol 2.5 mg Q6HR NEB 03/19/24 06:00 03/23/24 18:20 2.5 MG Ipratropium [place] 0.5 mg Q6HP NEB 03/19/24 06:00 03/23/24 18:20 0.5 MG Fentanyl Citrate 250 ml @ 5 mls/hr Q24H IV 03/19/24 04:45 03/23/24 20:16 5 MLS/HR Norepinephrine Bitartrate 250 ml @ 3.75 mls/hr Q24H IV 03/19/24 05:45 03/22/24 18:30 11.25 MLS/HR Midazolam HCl 50 ml @ 5 mls/hr Q10H IV 03/19/24 06:00 03/21/24 17:53 7 MLS/HR Heparin Sodium/ Dextrose 250 ml @ 6 mls/hr Q24H IV 03/19/24 15:28 03/23/24 18:28 6 MLS/HR Pantoprazole Sodium 40 mg DAILY IV 03/20/24 13:15 03/23/24 11:02 40 MG Metoclopramide HCl 10 mg BID IV 03/22/24 12:26 03/23/24 22:21 10 MG Dexmedetomidine HCl 400 mcg/ Dextrose 100 ml @ 3.84 mls/hr Q24H IV 03/22/24 13:00 03/23/24 19:43 3.84 MLS/HR Meropenem 50 ml @ 17 mls/hr Q8HR IV 03/22/24 14:00 03/23/24 22:21 17 MLS/HR Sodium Chloride 1,000 ml @ 75 mls/hr [id number] IV 03/23/24 11:30 03/23/24 23:20 75 MLS/HR Enteral Nutritional Formula 1,000 ml 30ML/HR GT 03/23/24 19:00 Amiodarone HCl 250 ml @ 33.333 mls/ hr Q7H30M IV 03/23/24 21:00 03/24/24 02:59 03/23/24 22:17 33.333 MLS/HR Amiodarone HCl 250 ml @ 16.667 mls/ hr Q15H IV 03/24/24 03:00 objective Gen.: Patient lying in bed in medical ICU. Intubated on mechanical ventilator. Head: Normocephalic, atraumatic. Eyes: PERRLA. Ears: Normal external anatomy. Throat: Endotracheal tube and orogastric tube in place. Neck: Supple, trachea midline. Chest: Transmitted breath sounds bilaterally. Decreased air entry bilaterally. No wheezing. Bibasilar crackles. Cardiovascular: Positive S1, positive S2. Regular rate and rhythm. Abdomen: Positive bowel sounds in all 4 quadrants. Soft, nontender, nondistended. : Ramachandran in place. Normal external genitalia. Rectal: Deferred. Skin: Warm, dry. Intact. Extremities: 2+ radial pulses bilaterally. No lower extremity edema. Neuro: Off sedation laboratory and microbiology Laboratory Tests 03/23/24 10:25 03/23/24 04:00 Test 03/23/24 10:25 Range/Units Serum Glucose 111 H 74-106 mg/dL Assessment/Plan Impression: Acute hypoxic respiratory failure On mechanical ventilator Pneumonia, likely gram negative Acute metabolic encephalopathy Non-ST elevation NE Marijuana use. Events: Remains on vent support On AC mode; RR 18, VT 500, PEEP 5, FiO2 of 30% CXR image and report reviewed. Devices in place. Small bilateral pleural effusions with bibasilar increased opacity. No pneumothorax. ABG reviewed, compensated. On heparin drip for NSTEMI. Off sedation OK to use Precedex for agitation Off Levophed, hemodynamically stable. IV fluids at 75 mL/hr. Continue antibiotics Continue bronchodilators Monitor renal function Monitor electrolytes. Supplement as necessary. Plan for CPAP once mentation improves. Patient tolerated CPAP this AM for 3 hours. Awaiting for mentation to improve. S/p therapeutic bronchoscopy on 03/21/24 with RML BAL - Mucous plugging from L6- L10 and R4-R10 See separate procedure note for details. Labs and imaging reviewed. Rest of plan as noted below. Plan: s/p intubation on mechanical ventilator. On AC mode; RR 18, VT 500, PEEP 5, FiO2 of 30% Titrate FIO2 to keep O2 saturation above 90%. VAP bundle. Daily ABG and CXR while intubated Off sedation Pressors if necessary for hemodynamic support Titrate to keep mean arterial pressure greater than 65 mmHg. Heparin drip for elevated troponin/NSTEMI Cardiology recs appreciated Continue bronchodilators. Continue antibiotics. Leukocytosis - monitor WBC Monitor renal function Monitor electrolytes. Supplement as necessary. Monitor ins and outs. Maintain euvolemia. Counseled against marijuana use. GI prophylaxis. DVT prophylaxis. Prognosis: Poor given patient's multiple co-morbidities. Condition: Critical Rest of plan per hospitalist and other consultants. A total of 35 minutes of critical care time was spent reviewing the patient record, examining the patient, making a diagnostic and therapeutic plan, discussing this plan with the medical personnel, following up on diagnostic studies and following the patient for clinical stability excluding any and all procedures. At least 50% of this time was spent in direct, [id number] contact. Thank you, Dr. Hahn, for allowing me to participate in this patient's care. Further recommendations will depend on the patient's clinical course. Please do not hesitate to contact me if you have any questions or concerns. This medical document was created using an electronic medical record system with [employer] dictation system. Although these documentations are being carefully reviewed, there may still be some phonetic and typographical changes. The errors are purely typographical, due to imperfection on the software program, and do not reflect any compromise in the patient's medical care. Plan discussed with: Other (JESUS Landon) Critical Care Time(min): 35 PRATIK DORANTES MD Mar 23, 2024 23:41
[2024-03-24] VITALS (164 sets, daily range): BP systolic 84–182; BP diastolic 45–119; PULSE 61–137; RESP 11–30; TEMP 97.5–100; O2SAT 81–100
[2024-03-24] MEDS: AMIODARONE 450mg/250ml AE 250 ML IV SCH (03:00)
--- NOTE | 2024-03-24 04:06 | RESUS ---
CODE ASSIST ASSESSSMENT Initial Information Code Assist Date: Mar 23, 2024 Code Assist Time: 20:31 Location of Arrest: [facility] Room # [address] AMADOR Time Notified: 20:31 Time PMD returned call: 20:31 Crash Cart Opened and Supplies: No Situation Staff concerned/worried, speci: HR >130 Situation comment: PT HAD BEEN TAKEN OFF SEDATION WHILE INTUBATED, HR WENT UP TO 160 TO 180S BP 122/82 Background Background: A 73 year old male admitted on 03/18 after been brought by EMS presents to the ED with a chief complaint of ALOC. Per EMS, patient was at [facility] for increased confusion as well as generalized weakness for the past 2 days. Per [facility], patient has new onset of A-fib and has elevated Troponin. Has a past medical history of HTN, HLD, Liver cirrhosis, HLD, CVA. Later that day pt was intubated and admitted to room 265, today pt had a trial of c pap and taken off sedation Assessment Temperature (Fahrenheit): 97.3 Blood Pressure Systolic: 122 Blood Pressure Diastolic: 82 Respiratory Rate: 19 O2 Sat by Pulse Oximetry: 98 Assessment comment: pt intubated sedated at this time, hr 130s receiving bolus of amiodorone. Recommendations/Interventions Medications and Responses : Medication Time: 20:42 Route of Administration: IV (amiodorone as protocol) Heart Rate: 170 EKG Rhythm: Atrial Fibrillation Blood Pressure Systolic: 102 Blood Pressure Diastolic: 57 Respiratory Rate: 19 O2 Sat by Pulse Oximetry: 98 Other Interventions previously intubated Outcome Outcome: Problem Resolved Team Members Team Members MANOLO FREY RN , ELA RN, BRANDAN RN, ZAYDA LEE PRIMARY, SARAH RN. Date of Service: Mar 23, 2024 Billing Provider: MARIANN SÁNCHEZ MD Common Visit Codes: PROCEDURE ONLY Procedure Codes: 36774-EYPFLMD CODE MANOLO BAPTISTE Mar 24, 2024 04:06 MARIANN SÁNCHEZ MD Mar 24, 2024 11:16
--- NOTE | 2024-03-24 05:12 | DVH ---
CHEST RADIOGRAPH Indication: PLEURAL EFFUSION Technique: Single frontal view of the chest was obtained Comparison: XY CHEST PORTABLE on DOS: 03/23/24 FINDINGS: Lines and Tubes: The endotracheal tube terminates 5.3 cm above the [place]. The enteric tube courses b elow the left hemidiaphragm and the tip extends outside the field of view. Lungs: Bilateral airspace disease. Pleura: Small bilateral pleural effusions. No pneumothorax. Cardiomediastinal contours: Stable. Bones: No acute osseous abnormality. Bilateral shoulder prostheses. IMPRESSION: 1. Support tubes in appropriate position. 2. Bilateral pleural effusions and bibasilar airspace disease.
[2024-03-24 07:23] LABS: Hematocrit 30.6 % (41.0-53.0); Mean Corpuscular Hemoglobin 30.1 pg (28.0-32.0); Mean Corpuscular Hgb Conc. 32.7 g/dL (32.0-36.0); Mean Corpuscular Volume 92.2 fL (80.0-100.0); Platelet Count (auto) 118 10^3/uL (140-450); Red Blood Cells 3.32 10^6/uL (4.5-5.90); Red Cell Distribution Width 20.6 % (11.8-14.3); White Blood Cell 12.2 10^3/uL (4.4-10.8)
[2024-03-24 07:29] LABS: Basophils % (manual) 0 (0.0-2.0); Blast Cells 0; Eosinophils % (manual) 0 (0-7); Metamyelocytes % 0; Myelocytes % 0; Promyelocytes % 0
[2024-03-24 07:33] LABS: INR 1.26 (0.9-1.15); Partial Thromboplastin Time 61.5 SEC (24.5-34.5); Prothrombin Time 13.1 sec (9.3-11.8)
[2024-03-24 09:12] LABS: Band Neutrophils % (manual) 2; Lymphocytes % (manual) 16 (10.0-50.0); Monocytes % (manual) 11 (0-12); Platelet Estimate Decreased; Reactive Lymphocytes 1; Smudge Cells 4 /100 WBC
[2024-03-24 10:22] LABS: Base Excess -2.5 mmol/L (-2.0-3.0)
--- NOTE | 2024-03-24 10:26 | DVHPN2 ---
Progress Note Date Seen: Mar 24, 2024 Has the PT tested + for MRSA If YES, has PT been informed?: No Medical Necessity Reason Pt with a Central, PICC or Fol: Yes The following are medically ne: Central Line, Ramachandran Catheter Reason for ramachandran catheter: Strict I&O, Total Immobilization Subjective Review of Systems: RESPIRATORY:Abnormal Other Systems: Patient seen and examined by myself today in follow-up, patient remained intubated on ventilator Objective vital signs Vital Sign Date Time Temp Pulse Resp B/P (MAP) Pulse Ox O2 Delivery O2 Flow Rate FiO2 03/24/24 08:35 87/46 03/24/24 08:00 98.2 77 16 96 98.2 03/24/24 06:43 50 03/24/24 06:00 Mechanical Ventilator+ Total Intake and Output 03/23/24 03/23/24 03/24/24 15:00 23:00 07:00 Intake Total 260.25 ml 759.68 ml 849.02 ml Output Total 375 ml 400 ml Balance 260.25 ml 384.68 ml 449.02 ml medications Current Medications Medications Dose Ordered Sig/Rick Route Start Time Stop Time Status Last Admin Dose Admin Diltiazem HCl 100 ml @ 5 mls/hr Q20H IV 03/18/24 21:00 Propofol 100 ml @ 2.16 mls/hr Q24H IV 03/19/24 00:00 03/24/24 05:06 8.64 MLS/HR Nitroglycerin 0.4 mg Q5MINP PRN SL 03/19/24 00:15 Morphine Sulfate 2 mg Q30M PRN IV 03/19/24 00:15 Albuterol 2.5 mg Q6HR NEB 03/19/24 06:00 03/24/24 06:43 2.5 MG Ipratropium [place] 0.5 mg Q6HP NEB 03/19/24 06:00 03/24/24 06:43 0.5 MG Fentanyl Citrate 250 ml @ 5 mls/hr Q24H IV 03/19/24 04:45 03/23/24 20:16 5 MLS/HR Norepinephrine Bitartrate 250 ml @ 3.75 mls/hr Q24H IV 03/19/24 05:45 03/22/24 18:30 11.25 MLS/HR Midazolam HCl 50 ml @ 5 mls/hr Q10H IV 03/19/24 06:00 03/21/24 17:53 7 MLS/HR Heparin Sodium/ Dextrose 250 ml @ 6 mls/hr Q24H IV 03/19/24 15:28 03/23/24 18:28 6 MLS/HR Pantoprazole Sodium 40 mg DAILY IV 03/20/24 13:15 03/24/24 09:22 40 MG Metoclopramide HCl 10 mg BID IV 03/22/24 12:26 03/24/24 09:22 10 MG Dexmedetomidine HCl 400 mcg/ Dextrose 100 ml @ 3.84 mls/hr Q24H IV 03/22/24 13:00 03/23/24 19:43 3.84 MLS/HR Meropenem 50 ml @ 17 mls/hr Q8HR IV 03/22/24 14:00 03/24/24 05:06 17 MLS/HR Sodium Chloride 1,000 ml @ 75 mls/hr [id number] IV 03/23/24 11:30 03/23/24 23:20 75 MLS/HR Enteral Nutritional Formula 1,000 ml 30ML/HR GT 03/23/24 19:00 Amiodarone HCl 250 ml @ 16.667 mls/ hr Q15H IV 03/24/24 03:00 Examination: LUNGS:Normal, CVS:Normal, MSK:Normal laboratory and microbiology Laboratory Tests 03/24/24 05:10 03/23/24 10:25 Test 03/23/24 10:25 Range/Units Serum Glucose 111 H 74-106 mg/dL Microbiology Date/Time Source Procedure Growth Status 03/21/24 13:47 Bronchial Washings Gram Stain - Final Complete 03/21/24 13:47 Respiratory Culture - Final Klebsiella pneumoniae Complete 03/19/24 14:05 Nose MRSA Screen - Final Complete 03/18/24 23:06 Blood Blood Culture - Final NO GROWTH AFTER 5 DAYS OF INCUBATION. 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 underlying hypertension Chronic diastolic heart failure NSTEMI Septic shock - improving A.Fib with RVR Hypernatremia due to dehydration Recommendations Kidney function resolved back to normal Increased urine output Ramachandran catheter Strict I&Os IVF half NS at 75 cc/hour IV antibiotics I will sign off this case, please reconsult as needed Thank you for the consult Plan discussed with: Other (Nurse) My Orders My Orders Orders - RENARD BACA MD Procedure Category Date Status Time Sod Chl 0.45% (Sodium PHA 03/23/24 In Process Chloride 0.45% Via 11:30 Dietary Evaluation Review Recommendations by RD: Increase Calorie Intake Comments: 1. Increase TF rate to goal rate of 45 mL/hr as tolerated. 2. Advance patient to EVER diet pending PUDDLER HELPER approval, when medically feasible 3. Continue to monitor labs and patient's weight. Expected Outcomes/Goals: 1. labs to improve 2. diet to advance 3. f/u in 2-3 days RENARD BACA MD Mar 24, 2024 10:26
[2024-03-24 11:41] LABS: Albumin 3.2 g/dL (3.2-4.8); Anion Gap 9 (5-15); BUN/Creatinine Ratio 53.8 (10.0-20.0); Calcium 9.3 mg/dL (8.7-10.4); Carbon Dioxide 22 mmol/L (20-31); Glucose 82 mg/dL (74-106); Potassium 5.1 mmol/L (3.5-5.1)
[2024-03-24 11:42] LABS: Total Protein 6.4 g/dL (5.7-8.2)
[2024-03-24 11:44] LABS: Chloride 115 mmol/L (98-107); Sodium 146 mmol/L (136-145)
[2024-03-24 11:45] LABS: Alanine Aminotransferase 54 U/L (7-40); Alkaline Phosphatase 281 U/L (46-116); Aspartate Aminotransferase 120 U/L (13-40); Bilirubin, Total 6.2 mg/dL (0.2-1.0); Blood Urea Nitrogen 42 mg/dL (9-23)
--- NOTE | 2024-03-24 13:19 | DVHPN2 ---
Progress Note - Dictate Date Seen: Mar 24, 2024 Has the PT tested + for MRSA If YES, has PT been informed?: No Medical Necessity Reason Pt with a Central, PICC or Fol: Yes The following are medically ne: Central Line, Ramachandran Catheter Reason for ramachandran catheter: Strict I&O, Total Immobilization Subjective Patient intubated. Sedation off. vital signs Vital Sign Date Time Temp Pulse Resp B/P (MAP) Pulse Ox O2 Delivery O2 Flow Rate FiO2 03/24/24 12:13 78 20 88/45 (59) 94 50 03/24/24 12:00 98.2 98.2 03/24/24 10:00 Mechanical Ventilator+ 03/24/24 10:00 50.0 Total Intake and Output 03/23/24 03/23/24 03/24/24 15:00 23:00 07:00 Intake Total 260.25 ml 759.68 ml 849.02 ml Output Total 375 ml 400 ml Balance 260.25 ml 384.68 ml 449.02 ml medications Current Medications Medications Dose Ordered Sig/Rick Route Start Time Stop Time Status Last Admin Dose Admin Diltiazem HCl 100 ml @ 5 mls/hr Q20H IV 03/18/24 21:00 Propofol 100 ml @ 2.16 mls/hr Q24H IV 03/19/24 00:00 03/24/24 05:06 8.64 MLS/HR Nitroglycerin 0.4 mg Q5MINP PRN SL 03/19/24 00:15 Morphine Sulfate 2 mg Q30M PRN IV 03/19/24 00:15 Albuterol 2.5 mg Q6HR NEB 03/19/24 06:00 03/24/24 12:13 2.5 MG Ipratropium [place] 0.5 mg Q6HP NEB 03/19/24 06:00 03/24/24 12:13 0.5 MG Fentanyl Citrate 250 ml @ 5 mls/hr Q24H IV 03/19/24 04:45 03/23/24 20:16 5 MLS/HR Norepinephrine Bitartrate 250 ml @ 3.75 mls/hr Q24H IV 03/19/24 05:45 03/22/24 18:30 11.25 MLS/HR Midazolam HCl 50 ml @ 5 mls/hr Q10H IV 03/19/24 06:00 03/21/24 17:53 7 MLS/HR Heparin Sodium/ Dextrose 250 ml @ 6 mls/hr Q24H IV 03/19/24 15:28 03/23/24 18:28 6 MLS/HR Pantoprazole Sodium 40 mg DAILY IV 03/20/24 13:15 03/24/24 09:22 40 MG Metoclopramide HCl 10 mg BID IV 03/22/24 12:26 03/24/24 09:22 10 MG Dexmedetomidine HCl 400 mcg/ Dextrose 100 ml @ 3.84 mls/hr Q24H IV 03/22/24 13:00 03/23/24 19:43 3.84 MLS/HR Meropenem 50 ml @ 17 mls/hr Q8HR IV 03/22/24 14:00 03/24/24 05:06 17 MLS/HR Sodium Chloride 1,000 ml @ 75 mls/hr [id number] IV 03/23/24 11:30 03/24/24 12:43 75 MLS/HR Enteral Nutritional Formula 1,000 ml 30ML/HR GT 03/23/24 19:00 Amiodarone HCl 250 ml @ 16.667 mls/ hr Q15H IV 03/24/24 03:00 objective General appearance: Intubated Respiratory: Crackles Cardiovascular: Regular rate and rhythm, no murmurs. No edema Abdomen: Soft, nondistended, nontender, bowel sounds present MSK: Appropriate muscle bulk Neuro: A/O x0 laboratory and microbiology Laboratory Tests 03/24/24 05:10 Test 03/24/24 05:10 Range/Units Serum Glucose 82 74-106 mg/dL Problem List 1. Septic Shock 2. NSTEMI 3. Acute Respiratory Failure 2/2 Klebsiella Pneumonia 4. Elevated LFTs with concern for autoimmune hepatitis 5. Pulmonary Hypertension Plan: -Cardiology consulted, Dr. Goode. TTE shows pulmonary hypertension, grade 2 diastolic dysfunction. -Patient is unstable for left heart cath at this time given pressor support and mechanical ventilation. -Continue heparin drip. -DC vancomycin and Zosyn. Meropenem started due to Klebsiella pneumoniae with concern for ESBL resistance given persistent septic shock. Awaiting susceptibilities. -Blood cultures show NGTD. -Infectious disease consulted. -Pulmonary consulted --Direct Kranthi negative, LDH slightly elevated, haptoglobin normal. LFTs improving. Imaging suggest underlying cirrhosis. Hepatitis C antibody positive. notes he completed treatment in the past and followed by [facility], confirmed on outside record review.. -Protonix 40mg IV daily -Tube feeds to be started -Nephrology consulted for MARISOL -Patient needs liver biopsy to evaluate for autoimmune hepatitis. Outside records shows he was previously positive for smooth muscle antibody, antimitochondrial antibody. Labs repeated here. GI recommendation with MARIELOS and IgG as well. Advised to hold off initiating prednisone prior to liver biopsy to reduce likelihood of false negative result. Will discuss with decision maker. -LTACH evaluation ordered. -Neurology consulted due to persistent AMS. -SAT today. Sedatives off until awakens. -Tube feeds started -Full Code Dietary Evaluation Review Recommendations by RD: Increase Calorie Intake Comments: 1. Increase TF rate to goal rate of 45 mL/hr as tolerated. 2. Advance patient to EVER diet pending FISH HATCHERY SUPERVISOR approval, when medically feasible 3. Continue to monitor labs and patient's weight. Expected Outcomes/Goals: 1. labs to improve 2. diet to advance 3. f/u in 2-3 days Plan discussed with: Other STORM BURGER DO Mar 24, 2024 13:19
--- NOTE | 2024-03-24 19:24 | DVHPN2 ---
Progress Note - Dictate Date Seen: Mar 24, 2024 Has the PT tested + for MRSA If YES, has PT been informed?: No Medical Necessity Reason Pt with a Central, PICC or Fol: Yes The following are medically ne: Central Line, Ramachandran Catheter Reason for ramachandran catheter: Strict I&O, Total Immobilization Subjective Patient was seen and evaluated in follow up in the ICU. Patient is intubated on ventilator. 30% FiO2. Sedation off. Patient unable to follow commands. WBC 12.2, NA 146, BUN 42, ALT 54, AST 120, Alk Phos 281. vital signs Vital Sign Date Time Temp Pulse Resp B/P (MAP) Pulse Ox O2 Delivery O2 Flow Rate FiO2 03/24/24 19:10 76 15 110/54 (72) 95 03/24/24 18:00 50 03/24/24 18:00 Mechanical Ventilator+ 03/24/24 16:00 98.2 98.2 03/24/24 10:00 50.0 Total Intake and Output 03/23/24 03/23/24 03/24/24 14:59 22:59 06:59 Intake Total 192.75 ml 748.29 ml 854.11 ml Output Total 375 ml 400 ml Balance 192.75 ml 373.29 ml 454.11 ml medications Current Medications Medications Dose Ordered Sig/Rick Route Start Time Stop Time Status Last Admin Dose Admin Diltiazem HCl 100 ml @ 5 mls/hr Q20H IV 03/18/24 21:00 Propofol 100 ml @ 2.16 mls/hr Q24H IV 03/19/24 00:00 03/24/24 05:06 8.64 MLS/HR Nitroglycerin 0.4 mg Q5MINP PRN SL 03/19/24 00:15 Morphine Sulfate 2 mg Q30M PRN IV 03/19/24 00:15 Albuterol 2.5 mg Q6HR NEB 03/19/24 06:00 03/24/24 18:39 2.5 MG Ipratropium [place] 0.5 mg Q6HP NEB 03/19/24 06:00 03/24/24 18:39 0.5 MG Fentanyl Citrate 250 ml @ 5 mls/hr Q24H IV 03/19/24 04:45 03/24/24 16:13 7.5 MLS/HR Norepinephrine Bitartrate 250 ml @ 3.75 mls/hr Q24H IV 03/19/24 05:45 03/22/24 18:30 11.25 MLS/HR Midazolam HCl 50 ml @ 5 mls/hr Q10H IV 03/19/24 06:00 03/21/24 17:53 7 MLS/HR Heparin Sodium/ Dextrose 250 ml @ 6 mls/hr Q24H IV 03/19/24 15:28 03/23/24 18:28 6 MLS/HR Pantoprazole Sodium 40 mg DAILY IV 03/20/24 13:15 03/24/24 09:22 40 MG Metoclopramide HCl 10 mg BID IV 03/22/24 12:26 03/24/24 09:22 10 MG Dexmedetomidine HCl 400 mcg/ Dextrose 100 ml @ 3.84 mls/hr Q24H IV 03/22/24 13:00 03/24/24 17:24 13.44 MLS/HR Meropenem 50 ml @ 17 mls/hr Q8HR IV 03/22/24 14:00 03/24/24 14:26 17 MLS/HR Sodium Chloride 1,000 ml @ 75 mls/hr [id number] IV 03/23/24 11:30 03/24/24 12:43 75 MLS/HR Enteral Nutritional Formula 1,000 ml 30ML/HR GT 03/23/24 19:00 Amiodarone HCl 250 ml @ 16.667 mls/ hr Q15H IV 03/24/24 03:00 objective GENERAL: Intubated on ventilator. LUNGS: Decreased breath sounds. CARDIOVASCULAR: Heart sounds are good. ABDOMEN: Soft. laboratory and microbiology Laboratory Tests 03/24/24 05:10 Test 03/24/24 05:10 Range/Units Serum Glucose 82 74-106 mg/dL Problem List Acute hypoxic respiratory failure. Septic shock. NSTEMI. Acute Respiratory Failure. Elevated LFTs. Pneumonia, likely gram negative. Acute metabolic encephalopathy. Marijuana use. Assessment/Plan Continued all current supportive medical care. Diltiazem. Heparin drip per protocol. Morphine for pain management. Vasopressors for hemodynamic support. IV antibiotics as ordered. Additional plan as per the hospital course. Critical care time of 45 minutes provided to include time spent evaluation of patient at bedside, when appropriate patient/family education for diagnosis, treatment plan, review of pertinent medical information and discussion of care with specialty providers and PCP. Mechanical ventilator parameters, treatment and adjustments have personally been reviewed by me and treatment plan by color expert has also been reviewed. Dietary Evaluation Review Recommendations by RD: Increase Calorie Intake Comments: 1. Increase TF rate to goal rate of 45 mL/hr as tolerated. 2. Advance patient to EVER diet pending BASE DRAW OPERATOR approval, when medically feasible 3. Continue to monitor labs and patient's weight. Expected Outcomes/Goals: 1. labs to improve 2. diet to advance 3. f/u in 2-3 days Plan discussed with: Other SACHA HURTADO MD Mar 24, 2024 19:23
--- NOTE | 2024-03-24 23:02 | DVHPN2 ---
Progress Note - Dictate Date Seen: Mar 24, 2024 Has the PT tested + for MRSA If YES, has PT been informed?: No Medical Necessity Reason Pt with a Central, PICC or Fol: Yes The following are medically ne: Central Line, Ramachandran Catheter Reason for ramachandran catheter: Strict I&O, Total Immobilization Subjective Patient seen and examined at bedside. Sedated, intubated on mechanical ventilator. Overnight events reviewed. vital signs Vital Sign Date Time Temp Pulse Resp B/P (MAP) Pulse Ox O2 Delivery O2 Flow Rate FiO2 03/24/24 22:19 112/53 03/24/24 22:15 71 14 96 03/24/24 22:00 45 03/24/24 22:00 Mechanical Ventilator+ 03/24/24 19:45 99.5 99.5 03/24/24 10:00 50.0 Total Intake and Output 03/23/24 03/23/24 03/24/24 15:00 23:00 07:00 Intake Total 260.25 ml 759.68 ml 849.02 ml Output Total 375 ml 400 ml Balance 260.25 ml 384.68 ml 449.02 ml medications Current Medications Medications Dose Ordered Sig/Rick Route Start Time Stop Time Status Last Admin Dose Admin Diltiazem HCl 100 ml @ 5 mls/hr Q20H IV 03/18/24 21:00 Propofol 100 ml @ 2.16 mls/hr Q24H IV 03/19/24 00:00 03/24/24 19:10 4.32 MLS/HR Nitroglycerin 0.4 mg Q5MINP PRN SL 03/19/24 00:15 Morphine Sulfate 2 mg Q30M PRN IV 03/19/24 00:15 Albuterol 2.5 mg Q6HR NEB 03/19/24 06:00 03/24/24 18:39 2.5 MG Ipratropium [place] 0.5 mg Q6HP NEB 03/19/24 06:00 03/24/24 18:39 0.5 MG Fentanyl Citrate 250 ml @ 5 mls/hr Q24H IV 03/19/24 04:45 03/24/24 16:13 7.5 MLS/HR Norepinephrine Bitartrate 250 ml @ 3.75 mls/hr Q24H IV 03/19/24 05:45 03/24/24 22:19 7.5 MLS/HR Midazolam HCl 50 ml @ 5 mls/hr Q10H IV 03/19/24 06:00 03/21/24 17:53 7 MLS/HR Heparin Sodium/ Dextrose 250 ml @ 6 mls/hr Q24H IV 03/19/24 15:28 03/23/24 18:28 6 MLS/HR Pantoprazole Sodium 40 mg DAILY IV 03/20/24 13:15 03/24/24 09:22 40 MG Metoclopramide HCl 10 mg BID IV 03/22/24 12:26 03/24/24 21:36 10 MG Dexmedetomidine HCl 400 mcg/ Dextrose 100 ml @ 3.84 mls/hr Q24H IV 03/22/24 13:00 03/24/24 17:24 13.44 MLS/HR Meropenem 50 ml @ 17 mls/hr Q8HR IV 03/22/24 14:00 03/24/24 21:34 17 MLS/HR Sodium Chloride 1,000 ml @ 75 mls/hr [id number] IV 03/23/24 11:30 03/24/24 12:43 75 MLS/HR Enteral Nutritional Formula 1,000 ml 30ML/HR GT 03/23/24 19:00 Amiodarone HCl 250 ml @ 16.667 mls/ hr Q15H IV 03/24/24 03:00 objective Gen.: Patient lying in bed in medical ICU. Sedated, intubated on mechanical ventilator. Head: Normocephalic, atraumatic. Eyes: PERRLA. Ears: Normal external anatomy. Throat: Endotracheal tube and orogastric tube in place. Neck: Supple, trachea midline. Chest: Transmitted breath sounds bilaterally. Decreased air entry bilaterally. No wheezing. Bibasilar crackles. Cardiovascular: Positive S1, positive S2. Regular rate and rhythm. Abdomen: Positive bowel sounds in all 4 quadrants. Soft, nontender, nondistended. : Ramachandran in place. Normal external genitalia. Rectal: Deferred. Skin: Warm, dry. Intact. Extremities: 2+ radial pulses bilaterally. No lower extremity edema. Neuro: Sedated laboratory and microbiology Laboratory Tests 03/24/24 05:10 Test 03/24/24 05:10 Range/Units Serum Glucose 82 74-106 mg/dL Assessment/Plan Impression: Acute hypoxic respiratory failure On mechanical ventilator Pneumonia, likely gram negative Acute metabolic encephalopathy Non-ST elevation [place] Marijuana use. Events: Remains intubated on mechanical ventilator. On AC mode; RR 18, VT 500, PEEP 5, FiO2 of 50% CXR image and report reviewed. Devices in place. Bilateral pleural effusions and bibasilar airspace disease. ABG reviewed, compensated. Tapered sedation - pt became tachycardic/tachypneic Patient was re-sedated Started on Precedex drip On heparin drip for NSTEMI. PTT therapeutic Pressors for hemodynamic support On Levophed at 2 mcg/min Titrate to keep mean arterial pressure greater than 65 mmHg. IV fluids at 75 mL/hr. Continue antibiotics Continue bronchodilators Monitor renal function Monitor electrolytes. Supplement as necessary. Plan for CPAP once mentation improves. Awaiting for mentation to improve. S/p therapeutic bronchoscopy on 03/21/24 with RML BAL - Mucous plugging from L6- L10 and R4-R10 See separate procedure note for details. Labs and imaging reviewed. Rest of plan as noted below. Plan: s/p intubation on mechanical ventilator. On AC mode; RR 18, VT 500, PEEP 5, FiO2 of 50% Titrate FIO2 to keep O2 saturation above 90%. VAP bundle. Daily ABG and CXR while intubated Off sedation Pressors for hemodynamic support Titrate to keep mean arterial pressure greater than 65 mmHg. Heparin drip for elevated troponin/NSTEMI Cardiology recs appreciated Continue bronchodilators. Continue antibiotics. Leukocytosis - monitor WBC Monitor renal function Monitor electrolytes. Supplement as necessary. Monitor ins and outs. Maintain euvolemia. Counseled against marijuana use. GI prophylaxis. DVT prophylaxis. Prognosis: Poor given patient's multiple co-morbidities. Condition: Critical Rest of plan per hospitalist and other consultants. A total of 35 minutes of critical care time was spent reviewing the patient record, examining the patient, making a diagnostic and therapeutic plan, discussing this plan with the medical personnel, following up on diagnostic studies and following the patient for clinical stability excluding any and all procedures. At least 50% of this time was spent in direct, [id number] contact. Thank you, Dr. Hahn, for allowing me to participate in this patient's care. Further recommendations will depend on the patient's clinical course. Please do not hesitate to contact me if you have any questions or concerns. This medical document was created using an electronic medical record system with [email or web address] dictation system. Although these documentations are being carefully reviewed, there may still be some phonetic and typographical changes. The errors are purely typographical, due to imperfection on the software program, and do not reflect any compromise in the patient's medical care. Dietary Evaluation Review Recommendations by RD: Increase Calorie Intake Comments: 1. Increase TF rate to goal rate of 45 mL/hr as tolerated. 2. Advance patient to EVER diet pending TARGET PROTECTION SPECIALIST approval, when medically feasible 3. Continue to monitor labs and patient's weight. Expected Outcomes/Goals: 1. labs to improve 2. diet to advance 3. f/u in 2-3 days Plan discussed with: Other (RN June) Critical Care Time(min): 35 PRATIK DORANTES MD Mar 24, 2024 23:02
[2024-03-25] VITALS (104 sets, daily range): BP systolic 83–138; BP diastolic 47–76; PULSE 54–151; RESP 12–28; TEMP 97.2–99.6; O2SAT 88–100
[2024-03-25 06:04] LABS: Anion Gap 9 (5-15); BUN/Creatinine Ratio 53.2 (10.0-20.0); Carbon Dioxide 23 mmol/L (20-31); Potassium 3.8 mmol/L (3.5-5.1)
[2024-03-25 06:05] LABS: Total Protein 5.9 g/dL (5.7-8.2)
[2024-03-25 06:09] LABS: Hematocrit 29.6 % (41.0-53.0); Hemoglobin 9.6 g/dL (13.5-17.5); Mean Corpuscular Hgb Conc. 32.6 g/dL (32.0-36.0); Mean Corpuscular Volume 92.2 fL (80.0-100.0); Platelet Count (auto) 118 10^3/uL (140-450); Red Blood Cells 3.21 10^6/uL (4.5-5.90); White Blood Cell 11.8 10^3/uL (4.4-10.8)
[2024-03-25 06:12] LABS: INR 1.33 (0.9-1.15); Partial Thromboplastin Time 67.4 SEC (24.5-34.5); Prothrombin Time 13.8 sec (9.3-11.8)
[2024-03-25 06:33] LABS: Red Cell Distribution Width 20.7 % (11.8-14.3)
[2024-03-25 06:34] LABS: Basophils % (manual) 0 (0.0-2.0); Blast Cells 0; Promyelocytes % 0
[2024-03-25 06:49] LABS: Alanine Aminotransferase 52 U/L (7-40); Albumin 2.9 g/dL (3.2-4.8); Alkaline Phosphatase 260 U/L (46-116); Aspartate Aminotransferase 108 U/L (13-40); Bilirubin, Total 6.2 mg/dL (0.2-1.0); Blood Urea Nitrogen 41 mg/dL (9-23); Chloride 114 mmol/L (98-107); Glucose 113 mg/dL (74-106); Sodium 146 mmol/L (136-145)
[2024-03-25 07:57] LABS: Band Neutrophils % (manual) 12; Eosinophils % (manual) 5 (0-7); Lymphocytes % (manual) 35 (10.0-50.0); Metamyelocytes % 1; Monocytes % (manual) 7 (0-12); Myelocytes % 1; Reactive Lymphocytes 1
[2024-03-25 07:58] LABS: Anisocytosis Slight; Platelet Estimate Decreased; Target Cell FEW
[2024-03-25 09:51] LABS: Base Excess -1.2 mmol/L (-2.0-3.0)
--- NOTE | 2024-03-25 09:55 | DVHPN2 ---
Progress Note - Dictate Date Seen: Mar 25, 2024 Has the PT tested + for MRSA If YES, has PT been informed?: No Medical Necessity Reason Pt with a Central, PICC or Fol: Yes The following are medically ne: Central Line, Ramachandran Catheter Reason for ramachandran catheter: Strict I&O, Total Immobilization Subjective Patient intubated. vital signs Vital Sign Date Time Temp Pulse Resp B/P (MAP) Pulse Ox O2 Delivery O2 Flow Rate FiO2 03/25/24 09:49 117/56 03/25/24 08:55 58 19 97 40 03/25/24 08:00 97.3 97.3 03/25/24 06:00 Mechanical Ventilator+ 03/24/24 10:00 50.0 Total Intake and Output 03/24/24 03/24/24 03/25/24 15:00 23:00 07:00 Intake Total 855.40 ml 951.30 ml 1000.8 ml Output Total 400 ml 525 ml Balance 855.40 ml 551.30 ml 475.8 ml medications Current Medications Medications Dose Ordered Sig/Rick Route Start Time Stop Time Status Last Admin Dose Admin Diltiazem HCl 100 ml @ 5 mls/hr Q20H IV 03/18/24 21:00 Propofol 100 ml @ 2.16 mls/hr Q24H IV 03/19/24 00:00 03/25/24 09:49 10.8 MLS/HR Nitroglycerin 0.4 mg Q5MINP PRN SL 03/19/24 00:15 Morphine Sulfate 2 mg Q30M PRN IV 03/19/24 00:15 Albuterol 2.5 mg Q6HR NEB 03/19/24 06:00 03/25/24 06:57 2.5 MG Ipratropium [place] 0.5 mg Q6HP NEB 03/19/24 06:00 03/25/24 06:57 0.5 MG Fentanyl Citrate 250 ml @ 5 mls/hr Q24H IV 03/19/24 04:45 03/24/24 16:13 7.5 MLS/HR Norepinephrine Bitartrate 250 ml @ 3.75 mls/hr Q24H IV 03/19/24 05:45 03/24/24 22:19 7.5 MLS/HR Midazolam HCl 50 ml @ 5 mls/hr Q10H IV 03/19/24 06:00 03/21/24 17:53 7 MLS/HR Heparin Sodium/ Dextrose 250 ml @ 6 mls/hr Q24H IV 03/19/24 15:28 03/23/24 18:28 6 MLS/HR Pantoprazole Sodium 40 mg DAILY IV 03/20/24 13:15 03/24/24 09:22 40 MG Metoclopramide HCl 10 mg BID IV 03/22/24 12:26 03/24/24 21:36 10 MG Dexmedetomidine HCl 400 mcg/ Dextrose 100 ml @ 3.84 mls/hr Q24H IV 03/22/24 13:00 03/25/24 05:22 5.76 MLS/HR Meropenem 50 ml @ 17 mls/hr Q8HR IV 03/22/24 14:00 03/25/24 05:21 17 MLS/HR Sodium Chloride 1,000 ml @ 75 mls/hr [id number] IV 03/23/24 11:30 03/25/24 01:20 75 MLS/HR Enteral Nutritional Formula 1,000 ml 30ML/HR GT 03/23/24 19:00 Amiodarone HCl 250 ml @ 16.667 mls/ hr Q15H IV 03/24/24 03:00 objective General appearance: Intubated Respiratory: Crackles Cardiovascular: Regular rate and rhythm, no murmurs. No edema Abdomen: Soft, nondistended, nontender, bowel sounds present MSK: Appropriate muscle bulk Neuro: A/O x0 laboratory and microbiology Laboratory Tests 03/25/24 04:46 Test 03/25/24 04:46 Range/Units Serum Glucose 113 H 74-106 mg/dL Problem List 1. Septic Shock 2. NSTEMI 3. Acute Respiratory Failure 2/2 Klebsiella Pneumonia 4. Elevated LFTs with concern for autoimmune hepatitis 5. Pulmonary Hypertension Plan: -Cardiology consulted, Dr. Goode. TTE shows pulmonary hypertension, grade 2 diastolic dysfunction. -Patient is unstable for left heart cath at this time given pressor support and mechanical ventilation. -Continue heparin drip. -DC vancomycin and Zosyn. Meropenem started due to Klebsiella pneumoniae with concern for ESBL resistance given persistent septic shock. Awaiting susceptibilities. -Blood cultures show NGTD. -Infectious disease consulted. -Pulmonary consulted --Direct Kranthi negative, LDH slightly elevated, haptoglobin normal. LFTs improving. Imaging suggest underlying cirrhosis. Hepatitis C antibody positive. notes he completed treatment in the past and followed by [facility], confirmed on outside record review.. -Protonix 40mg IV daily -Tube feeds to be started -Nephrology consulted for MARISOL, improving. -Patient needs liver biopsy to evaluate for autoimmune hepatitis. Outside records shows he was previously positive for smooth muscle antibody, antimitochondrial antibody. Labs repeated here. GI recommendation with MARIELOS and IgG as well. Advised to hold off initiating prednisone prior to liver biopsy to reduce likelihood of false negative result. Will discuss with decision maker. -LTACH transfer ordered. -Neurology consulted due to persistent AMS. -Daily SAT/SBT. -Tube feeds started -Full Code Dietary Evaluation Review Recommendations by RD: Increase Calorie Intake Comments: 1. Increase TF rate to goal rate of 45 mL/hr as tolerated. 2. Advance patient to EVER diet pending REPORT PROGRAMMER approval, when medically feasible 3. Continue to monitor labs and patient's weight. Expected Outcomes/Goals: 1. labs to improve 2. diet to advance 3. f/u in 2-3 days Plan discussed with: Other STORM BURGER DO Mar 25, 2024 09:55
--- NOTE | 2024-03-25 15:08 | ECG ---
[facility] Test Date: 2024-03-23 Test Time: 20:33:50 Pat Name: ARTUR SOLORZANO Department: Respiratoy Room: 0265 A Gender: M Loader Technician: : 1950 Requested By: SACHA HURTADO Order Number: [id number] Reading MD: Uriel Garcia Measurements Intervals [place] Rate: 172 P: 0 AR: 0 QRS: 268 QRSD: 143 T: 86 QT: 295 QTc: 499 Interpretive Statements Atrial fibrillation with rapid ventricular response; New Right bundle branch block and LAFB Artifact in lead(s) V2 and baseline wander in lead(s) II,V2 Electronically Signed On 03-25-2024 21:03:15 PST by Uriel Garcia Please click the below link to view image of tracing.
--- NOTE | 2024-03-25 15:08 | ECG ---
[facility] Test Date: 2024-03-23 Test Time: 20:35:14 Pat Name: ARTUR SOLORZANO Department: Respiratoy Room: 0265 A Gender: M [id number] Armor Crewman: : 1950 Requested By: SACHA HURTADO Order Number: [id number] Reading MD: Uriel Garcia Measurements Intervals [place] Rate: 180 P: 0 TN: 0 QRS: -80 QRSD: 133 T: 83 QT: 280 QTc: 485 Interpretive Statements Atrial fibrillation with rapid ventricular response RBBB and LAFB Baseline wander in lead(s) V1,V4 Electronically Signed On 03-25-2024 21:03:34 PST by Uriel Garcia Please click the below link to view image of tracing.
[2024-03-25] MEDS: METOPROLOL TARTRATE 1MG/1ML-5ML VIAL IV ONE (19:01)
[2024-03-25] MEDS: AMIODARONE BOLUS KIT 100 ML IV ONE (19:02)
--- NOTE | 2024-03-25 22:01 | DVH ---
EXAM: XY CHEST PORTABLE TECHNIQUE: Single frontal chest radiograph CLINICAL HISTORY: VERIFY ETT PLACEMENT COMPARISON: XY CHEST PORTABLE on DOS: 03/24/24, XY CHEST PORTABLE on DOS: 03/23/24, XY CHEST PORTABLE on DOS: 03/22/24 Findings/Impression: Frontal chest radiograph demonstrates no acute osseous or superficial soft tissue abnormalities. Endotracheal tube terminates 4.3 cm from the [place]. Enteric tube is overlying the plane of the stoma ch. The trachea is midline. The cardiac silhouette and mediastinum are within normal limits. Bilateral lower lung field hazy opacities. No pneumothorax.
--- NOTE | 2024-03-25 22:05 | DVHPN2 ---
Progress Note - Dictate Date Seen: Mar 25, 2024 Has the PT tested + for MRSA If YES, has PT been informed?: No Medical Necessity Reason Pt with a Central, PICC or Fol: Yes The following are medically ne: Central Line, Ramachandran Catheter Reason for ramachandran catheter: Strict I&O, Total Immobilization Subjective Patient was seen and evaluated in follow up in the ICU. Patient is intubated on ventilator. 40% FiO2. Remains off sedation. HGB 9.6, HCT 29.6, PT 13.8, INR 1.33, PTT 67.4, NA 146, CL 114, BUN 41, AST 108, ALT 52. vital signs Vital Sign Date Time Temp Pulse Resp B/P (MAP) Pulse Ox O2 Delivery O2 Flow Rate FiO2 03/25/24 11:15 58 15 134/65 (88) 99 03/25/24 10:42 40 03/25/24 10:00 Mechanical Ventilator 03/25/24 08:00 97.3 97.3 03/24/24 10:00 50.0 Total Intake and Output 03/24/24 03/24/24 03/25/24 15:00 23:00 07:00 Intake Total 855.40 ml 951.30 ml 1000.8 ml Output Total 400 ml 525 ml Balance 855.40 ml 551.30 ml 475.8 ml medications Current Medications Medications Dose Ordered Sig/Rick Route Start Time Stop Time Status Last Admin Dose Admin Diltiazem HCl 100 ml @ 5 mls/hr Q20H IV 03/18/24 21:00 Propofol 100 ml @ 2.16 mls/hr Q24H IV 03/19/24 00:00 03/25/24 09:49 10.8 MLS/HR Nitroglycerin 0.4 mg Q5MINP PRN SL 03/19/24 00:15 Morphine Sulfate 2 mg Q30M PRN IV 03/19/24 00:15 Albuterol 2.5 mg Q6HR NEB 03/19/24 06:00 03/25/24 06:57 2.5 MG Ipratropium [place] 0.5 mg Q6HP NEB 03/19/24 06:00 03/25/24 06:57 0.5 MG Fentanyl Citrate 250 ml @ 5 mls/hr Q24H IV 03/19/24 04:45 03/24/24 16:13 7.5 MLS/HR Norepinephrine Bitartrate 250 ml @ 3.75 mls/hr Q24H IV 03/19/24 05:45 03/24/24 22:19 7.5 MLS/HR Midazolam HCl 50 ml @ 5 mls/hr Q10H IV 03/19/24 06:00 03/21/24 17:53 7 MLS/HR Heparin Sodium/ Dextrose 250 ml @ 6 mls/hr Q24H IV 03/19/24 15:28 03/23/24 18:28 6 MLS/HR Pantoprazole Sodium 40 mg DAILY IV 03/20/24 13:15 03/25/24 10:32 40 MG Metoclopramide HCl 10 mg BID IV 03/22/24 12:26 03/25/24 10:32 10 MG Dexmedetomidine HCl 400 mcg/ Dextrose 100 ml @ 3.84 mls/hr Q24H IV 03/22/24 13:00 03/25/24 05:22 5.76 MLS/HR Meropenem 50 ml @ 17 mls/hr Q8HR IV 03/22/24 14:00 03/25/24 05:21 17 MLS/HR Sodium Chloride 1,000 ml @ 75 mls/hr [id number] IV 03/23/24 11:30 03/25/24 01:20 75 MLS/HR Enteral Nutritional Formula 1,000 ml 30ML/HR GT 03/23/24 19:00 Amiodarone HCl 250 ml @ 16.667 mls/ hr Q15H IV 03/24/24 03:00 objective GENERAL: Intubated on ventilator. LUNGS: Decreased breath sounds. CARDIOVASCULAR: Heart sounds are good. ABDOMEN: Soft. laboratory and microbiology Laboratory Tests 03/25/24 04:46 Test 03/25/24 04:46 Range/Units Serum Glucose 113 H 74-106 mg/dL Problem List Acute hypoxic respiratory failure. Septic shock. NSTEMI. Acute Respiratory Failure. Elevated LFTs. Pneumonia, likely gram negative. Acute metabolic encephalopathy. Marijuana use. Assessment/Plan Continued all current supportive medical care. Diltiazem. Heparin drip per protocol. Morphine for pain management. Vasopressors for hemodynamic support. IV antibiotics as ordered. Additional plan as per the hospital course. Critical care time of 45 minutes provided to include time spent evaluation of patient at bedside, when appropriate patient/family education for diagnosis, treatment plan, review of pertinent medical information and discussion of care with specialty providers and PCP. Mechanical ventilator parameters, treatment and adjustments have personally been reviewed by me and treatment plan by compliance testing analyst has also been reviewed. Dietary Evaluation Review Recommendations by RD: Increase Calorie Intake Comments: 1. Increase TF rate to goal rate of 45 mL/hr as tolerated. 2. Advance patient to EVER diet pending ACADEMIC SUPPORT CENTER DIRECTOR approval, when medically feasible 3. Continue to monitor labs and patient's weight. Expected Outcomes/Goals: 1. labs to improve 2. diet to advance 3. f/u in 2-3 days Plan discussed with: Other SACHA HURTADO MD Mar 25, 2024 12:23
--- NOTE | 2024-03-25 23:24 | DVHPN2 ---
Progress Note - Dictate Date Seen: Mar 25, 2024 Has the PT tested + for MRSA If YES, has PT been informed?: No Medical Necessity Reason Pt with a Central, PICC or Fol: Yes The following are medically ne: Central Line, Ramachandran Catheter Reason for ramachandran catheter: Strict I&O, Total Immobilization Subjective Patient seen and examined at bedside. Sedated, intubated on mechanical ventilator. Overnight events reviewed. vital signs Vital Sign Date Time Temp Pulse Resp B/P (MAP) Pulse Ox O2 Delivery O2 Flow Rate FiO2 03/25/24 22:00 40 03/25/24 22:00 109/55 03/25/24 22:00 63 03/25/24 22:00 18 97 Mechanical Ventilator+ 03/25/24 20:00 99.6 99.6 03/24/24 10:00 50.0 Total Intake and Output 03/24/24 03/24/24 03/25/24 15:00 23:00 07:00 Intake Total 855.40 ml 951.30 ml 1000.8 ml Output Total 400 ml 525 ml Balance 855.40 ml 551.30 ml 475.8 ml medications Current Medications Medications Dose Ordered Sig/Rick Route Start Time Stop Time Status Last Admin Dose Admin Diltiazem HCl 100 ml @ 5 mls/hr Q20H IV 03/18/24 21:00 Propofol 100 ml @ 2.16 mls/hr Q24H IV 03/19/24 00:00 03/25/24 09:49 10.8 MLS/HR Nitroglycerin 0.4 mg Q5MINP PRN SL 03/19/24 00:15 Morphine Sulfate 2 mg Q30M PRN IV 03/19/24 00:15 Albuterol 2.5 mg Q6HR NEB 03/19/24 06:00 03/25/24 18:15 2.5 MG Ipratropium [place] 0.5 mg Q6HP NEB 03/19/24 06:00 03/25/24 18:15 0.5 MG Fentanyl Citrate 250 ml @ 5 mls/hr Q24H IV 03/19/24 04:45 03/25/24 20:17 30 MLS/HR Norepinephrine Bitartrate 250 ml @ 3.75 mls/hr Q24H IV 03/19/24 05:45 03/24/24 22:19 7.5 MLS/HR Midazolam HCl 50 ml @ 5 mls/hr Q10H IV 03/19/24 06:00 03/21/24 17:53 7 MLS/HR Heparin Sodium/ Dextrose 250 ml @ 6 mls/hr Q24H IV 03/19/24 15:28 03/25/24 13:43 6 MLS/HR Pantoprazole Sodium 40 mg DAILY IV 03/20/24 13:15 03/25/24 10:32 40 MG Metoclopramide HCl 10 mg BID IV 03/22/24 12:26 03/25/24 21:40 10 MG Dexmedetomidine HCl 400 mcg/ Dextrose 100 ml @ 3.84 mls/hr Q24H IV 03/22/24 13:00 03/25/24 21:40 7.68 MLS/HR Meropenem 50 ml @ 17 mls/hr Q8HR IV 03/22/24 14:00 03/25/24 21:40 17 MLS/HR Sodium Chloride 1,000 ml @ 75 mls/hr [id number] IV 03/23/24 11:30 03/25/24 13:25 75 MLS/HR Enteral Nutritional Formula 1,000 ml 30ML/HR GT 03/23/24 19:00 Amiodarone HCl 250 ml @ 16.667 mls/ hr Q15H IV 03/24/24 03:00 objective Gen.: Patient lying in bed in medical ICU. Sedated, intubated on mechanical ventilator. Head: Normocephalic, atraumatic. Eyes: PERRLA. Ears: Normal external anatomy. Throat: Endotracheal tube and orogastric tube in place. Neck: Supple, trachea midline. Chest: Transmitted breath sounds bilaterally. Decreased air entry bilaterally. No wheezing. Bibasilar crackles. Cardiovascular: Positive S1, positive S2. Regular rate and rhythm. Abdomen: Positive bowel sounds in all 4 quadrants. Soft, nontender, nondistended. : Ramachandran in place. Normal external genitalia. Rectal: Deferred. Skin: Warm, dry. Intact. Extremities: 2+ radial pulses bilaterally. No lower extremity edema. Neuro: Sedated laboratory and microbiology Laboratory Tests 03/25/24 04:46 Test 03/25/24 04:46 Range/Units Serum Glucose 113 H 74-106 mg/dL Assessment/Plan Impression: Acute hypoxic respiratory failure On mechanical ventilator Pneumonia, likely gram negative Acute metabolic encephalopathy Non-ST elevation HI Marijuana use. Events: Remains intubated on mechanical ventilator. On AC mode; RR 18, VT 500, PEEP 5, FiO2 of 40% CXR image and report reviewed. Devices in place. Bilateral lower lung field hazy opacities. ABG reviewed, compensated. Sedated on Fentanyl, Propofol On Precedex drip On heparin drip for NSTEMI. PTT therapeutic Cardiology recs appreciated. Pressors for hemodynamic support On Levophed at 10 mcg/min Titrate to keep mean arterial pressure greater than 65 mmHg. IV fluids at 75 mL/hr. Continue antibiotics Continue bronchodilators Monitor renal function Monitor electrolytes. Supplement as necessary. Plan for CPAP once mentation improves. Awaiting for mentation to improve. S/p therapeutic bronchoscopy on 03/21/24 with RML BAL - Mucous plugging from L6- L10 and R4-R10 See separate procedure note for details. Labs and imaging reviewed. Rest of plan as noted below. Plan: s/p intubation on mechanical ventilator. On AC mode; RR 18, VT 500, PEEP 5, FiO2 of 40% Titrate FIO2 to keep O2 saturation above 90%. VAP bundle. Daily ABG and CXR while intubated Off sedation Pressors for hemodynamic support Titrate to keep mean arterial pressure greater than 65 mmHg. Heparin drip for elevated troponin/NSTEMI Cardiology recs appreciated Continue bronchodilators. Continue antibiotics. Leukocytosis - monitor WBC Monitor renal function Monitor electrolytes. Supplement as necessary. Monitor ins and outs. Maintain euvolemia. Counseled against marijuana use. GI prophylaxis. DVT prophylaxis. Prognosis: Poor given patient's multiple co-morbidities. Condition: Critical Rest of plan per hospitalist and other consultants. A total of 35 minutes of critical care time was spent reviewing the patient record, examining the patient, making a diagnostic and therapeutic plan, discussing this plan with the medical personnel, following up on diagnostic studies and following the patient for clinical stability excluding any and all procedures. At least 50% of this time was spent in direct, [id number] contact. Thank you, Dr. Hahn, for allowing me to participate in this patient's care. Further recommendations will depend on the patient's clinical course. Please do not hesitate to contact me if you have any questions or concerns. This medical document was created using an electronic medical record system with Dragon computerized dictation system. Although these documentations are being carefully reviewed, there may still be some phonetic and typographical changes. The errors are purely typographical, due to imperfection on the software program, and do not reflect any compromise in the patient's medical care. Dietary Evaluation Review Recommendations by RD: Increase Calorie Intake Comments: 1. Increase TF rate to goal rate of 45 mL/hr as tolerated. 2. Advance patient to EVER diet pending RIBBON HANKING MACHINE OPERATOR approval, when medically feasible 3. Continue to monitor labs and patient's weight. Expected Outcomes/Goals: 1. labs to improve 2. diet to advance 3. f/u in 2-3 days Plan discussed with: Other (JESUS Gomez) Critical Care Time(min): 35 PRATIK DORANTES MD Mar 25, 2024 23:24
[2024-03-26] VITALS (83 sets, daily range): BP systolic 85–156; BP diastolic 42–73; PULSE 58–81; RESP 7–20; TEMP 97–98.7; O2SAT 94–100
[2024-03-26] MEDS: PROPOFOL 100 ML IV SCH (00:15)
[2024-03-26 05:34] LABS: Hematocrit 31.5 % (41.0-53.0); Hemoglobin 10.2 g/dL (13.5-17.5); Mean Corpuscular Hemoglobin 30.2 pg (28.0-32.0); Mean Corpuscular Hgb Conc. 32.5 g/dL (32.0-36.0); Mean Corpuscular Volume 92.8 fL (80.0-100.0); Platelet Count (auto) 113 10^3/uL (140-450); Red Blood Cells 3.39 10^6/uL (4.5-5.90); White Blood Cell 10.7 10^3/uL (4.4-10.8)
[2024-03-26 05:53] LABS: Anion Gap 8 (5-15); BUN/Creatinine Ratio 53.5 (10.0-20.0); Carbon Dioxide 23 mmol/L (20-31); Chloride 113 mmol/L (98-107); Potassium 4.1 mmol/L (3.5-5.1); Sodium 144 mmol/L (136-145); Total Protein 6.1 g/dL (5.7-8.2)
[2024-03-26 05:54] LABS: Alanine Aminotransferase 62 U/L (7-40); Albumin 2.9 g/dL (3.2-4.8); Alkaline Phosphatase 276 U/L (46-116); Aspartate Aminotransferase 115 U/L (13-40); Bilirubin, Total 6.2 mg/dL (0.2-1.0); Blood Urea Nitrogen 38 mg/dL (9-23); Glucose 121 mg/dL (74-106)
[2024-03-26 06:03] LABS: INR 1.28 (0.9-1.15); Prothrombin Time 13.3 sec (9.3-11.8)
[2024-03-26 06:17] LABS: Red Cell Distribution Width 21.7 % (11.8-14.3)
[2024-03-26 06:19] LABS: Basophils % (manual) 0 (0.0-2.0); Blast Cells 0; Myelocytes % 0; Promyelocytes % 0; Reactive Lymphocytes 0
--- NOTE | 2024-03-26 06:56 | DVHPN2 ---
Progress Note Date Seen: Mar 26, 2024 Has the PT tested + for MRSA If YES, has PT been informed?: No Medical Necessity Reason Pt with a Central, PICC or Fol: Yes The following are medically ne: Central Line, Ramachandran Catheter Reason for ramachandran catheter: Strict I&O, Total Immobilization Subjective Review of Systems: Not Done Objective vital signs Vital Sign Date Time Temp Pulse Resp B/P (MAP) Pulse Ox O2 Delivery O2 Flow Rate FiO2 03/26/24 06:45 60 17 100/50 (67) 95 03/26/24 06:15 40 03/26/24 06:00 Mechanical Ventilator+ 03/26/24 04:15 97.9 97.9 03/24/24 10:00 50.0 Total Intake and Output 03/25/24 03/25/24 03/26/24 15:00 23:00 07:00 Intake Total 848.93 ml 1148.52 ml 1101.8 ml Output Total 450 ml 400 ml Balance 848.93 ml 698.52 ml 701.8 ml medications Current Medications Medications Dose Ordered Sig/Rick Route Start Time Stop Time Status Last Admin Dose Admin Diltiazem HCl 100 ml @ 5 mls/hr Q20H IV 03/18/24 21:00 Nitroglycerin 0.4 mg Q5MINP PRN SL 03/19/24 00:15 Morphine Sulfate 2 mg Q30M PRN IV 03/19/24 00:15 Albuterol 2.5 mg Q6HR NEB 03/19/24 06:00 03/26/24 06:15 2.5 MG Ipratropium [place] 0.5 mg Q6HP NEB 03/19/24 06:00 03/26/24 06:15 0.5 MG Fentanyl Citrate 250 ml @ 5 mls/hr Q24H IV 03/19/24 04:45 03/25/24 20:17 30 MLS/HR Norepinephrine Bitartrate 250 ml @ 3.75 mls/hr Q24H IV 03/19/24 05:45 03/26/24 01:41 18.75 MLS/HR Midazolam HCl 50 ml @ 5 mls/hr Q10H IV 03/19/24 06:00 03/21/24 17:53 7 MLS/HR Heparin Sodium/ Dextrose 250 ml @ 6 mls/hr Q24H IV 03/19/24 15:28 03/25/24 13:43 6 MLS/HR Pantoprazole Sodium 40 mg DAILY IV 03/20/24 13:15 03/25/24 10:32 40 MG Metoclopramide HCl 10 mg BID IV 03/22/24 12:26 03/25/24 21:40 10 MG Dexmedetomidine HCl 400 mcg/ Dextrose 100 ml @ 3.84 mls/hr Q24H IV 03/22/24 13:00 03/25/24 21:40 7.68 MLS/HR Meropenem 50 ml @ 17 mls/hr Q8HR IV 03/22/24 14:00 03/26/24 05:35 17 MLS/HR Sodium Chloride 1,000 ml @ 75 mls/hr [id number] IV 03/23/24 11:30 03/25/24 13:25 75 MLS/HR Enteral Nutritional Formula 1,000 ml 30ML/HR GT 03/23/24 19:00 Amiodarone HCl 250 ml @ 16.667 mls/ hr Q15H IV 03/24/24 03:00 Propofol 100 ml @ 2.58 mls/hr Q24H IV 03/26/24 00:30 03/26/24 03:52 20.64 MLS/HR Examination: GENERAL:Normal, LUNGS:Abnormal, CVS:Normal, ABDOMEN:Normal laboratory and microbiology Laboratory Tests 03/26/24 04:59 Test 03/26/24 04:59 Range/Units Serum Glucose 121 H 74-106 mg/dL Problem List/Assessment/Plan Problem List/Assessment/Plan 1) Acute respiratory failure, intubated 2) Septic shock 3) B/L PNAm klebsiella 4) NSTEMI 5) Pulmonary HTN 6) Hepatitis, ?autoimmune plan; intubated on vent fio2 40%, on 8 mcg levophed this AM, IV heparin gtt as per protocol, WBC normalized this AM, continue iv merrem, cultures reviewed and appreciated, pulm/cardio/neuro/GI/renal on board, LTACH eval pending, will follow along medically, guarded/crtiical Plan discussed with: Other Dietary Evaluation Review Recommendations by RD: Increase Calorie Intake Comments: 1. Increase TF rate to goal rate of 45 mL/hr as tolerated. 2. Advance patient to EVER diet pending CLAM SHUCKING MACHINE TENDER approval, when medically feasible 3. Continue to monitor labs and patient's weight. Expected Outcomes/Goals: 1. labs to improve 2. diet to advance 3. f/u in 2-3 days BELEN COLIN MD Mar 26, 2024 06:56
[2024-03-26 08:00] LABS: Base Excess -2.2 mmol/L (-2.0-3.0)
[2024-03-26 09:24] LABS: Anisocytosis Slight; Band Neutrophils % (manual) 13; Eosinophils % (manual) 4 (0-7); Lymphocytes % (manual) 23 (10.0-50.0); Metamyelocytes % 3; Monocytes % (manual) 13 (0-12); Platelet Estimate Decreased
--- NOTE | 2024-03-26 12:15 | DVHHP2 ---
Admitting Diagnosis: NSTEMI Acute respiratory failure PNA CHF exacerbation History of Present Illness HPI 73 year old male with HTN, CHF, cirrhosis, h/o CVA was brought from [facility] with ALOC, generalized weakness, new onset Afib and elevated troponin. Per [facility], patient has new onset of A-fib and has elevated Troponin. Patient's CXR showed PNA, troponin was elevated. Patient was altered and had SOB. Patient was intubated by ER MD. Home Meds Reported Medications Duloxetine Hcl (Cymbalta) 60 Mg Cap, 60 MG PO DAILY, CAP 03/20/24 Tamsulosin Hcl (Tamsulosin Hcl) 0.4 Mg Cap, 0.8 MG PO QPM, MG 03/20/24 Atorvastatin Calcium (Lipitor) 40 Mg Tab, 40 MG PO DAILY, TAB 03/20/24 Omeprazole (Omeprazole Dr) 40 Mg Cap, 40 MG PO DAILY, CAP 03/20/24 Amitriptyline Hcl (Amitriptyline Hcl) 10 Mg Tab, 10 MG PO HS, MG 03/20/24 Tizanidine Hydrochloride (Zanaflex) 4 Mg Tab, 1 TAB PO TID, TAB 03/20/24 Prednisone (Prednisone) 5 Mg Tab, 5 MG PO Q6H, TAB 03/20/24 Tramadol HCl (Tramadol HCl) 50 Mg Tab, 50 MG PO Q8H PRN for PAIN SCALE 1 THRU 6, TAB 03/20/24 Lorazepam (Lorazepam) 1 Mg Tab, 1 MG PO HS PRN for ANXIETY, TAB 03/20/24 Past Medical History Cardiac: CHF, HTN, Hyperlipidemia Central Nervous System: CVA Hepatobiliary: Cirrhosis Patient Family History: Cardiovascular disease G8 MOTHER Review of Systems Constitutional: Weakness Pulmonary/Respiratory: Dyspnea Cardiovascular: Palpitations Psychiatric: Confusion H&P Exam Vital Signs Vital Signs Date Time Temp Pulse Resp B/P (MAP) Pulse Ox O2 Delivery O2 Flow Rate FiO2 03/26/24 12:00 122/56 03/26/24 10:52 58 20 96 40 03/26/24 08:00 Mechanical Ventilator+ 03/26/24 08:00 97.0 97.0 03/24/24 10:00 50.0 General Appeara: Obese Head Exam: Normal inspection Neck Exam: Normal inspection Eye Exam: bilateral eye PERRL, bilateral eye EOMI Pulmonary/Respiratory: Crackles Cardiovascular/Chest: Tachycardia Abdominal Exam: Normal bowel sounds Ankle Exam: bilateral ankle Swelling Foot: bilateral foot swelling Neuro/Mental St: Disoriented Labs/Xrays Labs Test 03/26/24 07:47 03/26/24 04:59 03/25/24 09:16 03/25/24 04:46 Range/Units Blood Gas Specimen Type Arterial Blood Gas Sample Site Left radial Blood Gas Patient Temperature 37.0 Arterial Blood Date Drawn [id number] Arterial Blood pH 7.425 7.350-7.450 Arterial Blood Partial Pressure CO2 33.8 L 35.0-48.0 mmHg Arterial Blood Partial Pressure O2 73.9 L 83.0-108.0 mmHg Arterial Blood HCO3 21.7 21.0-28.0 mmol/L Arterial Blood Oxygen Saturation 93.8 L 94.0-98.0 % Arterial Blood Base Excess -2.2 L -2.0-3.0 mmol/L Arterial Blood Oxyhemoglobin 92.3 L 94.0-98.0 % Arterial Blood Carboxyhemoglobin 1.4 0.5-1.5 % Arterial Blood Methemoglobin 0.2 0.0-1.5 % Haim Test Yes Blood Gas Total Hemoglobin 10.60 L 13.5-17.5 g/dL Blood Gas Set Respiration Rate 18.0 Blood Gas Modality Vent - ac FiO2 % 40.0 Blood Gas Tidal Volume 500.0 Blood Gas PEEP or CPAP 5.0 White Blood Count 10.7 4.4-10.8 10^3/uL Red Blood Count 3.39 L 4.5-5.90 10^6/uL Hemoglobin 10.2 L 13.5-17.5 g/dL Hematocrit 31.5 L 41.0-53.0 % Mean Corpuscular Volume 92.8 80.0-100.0 fL Mean Corpuscular Hemoglobin 30.2 28.0-32.0 pg Mean Corpuscular Hemoglobin Concent 32.5 32.0-36.0 g/dL Red Cell Distribution Width 21.7 H 11.8-14.3 % Platelet Count 113 L 140-450 10^3/uL Mean Platelet Volume 9.6 6.9-10.8 fL Neutrophils (%) (Auto) 37.0-80.0 % Lymphocytes (%) (Auto) 10.0-50.0 % Monocytes (%) (Auto) 0.0-12.0 % Basophils (%) (Auto) 0.0-2.0 % Neutrophils # (Auto) 1.6-8.6 10 ^3/uL Lymphocytes # (Auto) 0.4-5.4 10 ^3/uL Monocytes # (Auto) 0-1.3 10 ^3/uL Differential Total Cells Counted 100.0 100 Neutrophils % (Manual) 44 37.0-80.0 Band Neutrophils % (Manual) 13 Lymphocytes % (Manual) 23 10.0-50.0 Monocytes % (Manual) 13 H 0-12 Eosinophils % (Manual) 4 0-7 Basophils % (Manual) 0 0.0-2.0 Metamyelocytes % (manual) 3 Myelocytes % (Manual) 0 Promyelocytes % (Manual) 0 Blast Cells % (Manual) 0 Reactive Lymphocytes 0 Platelet Estimate Decreased Anisocytosis (manual) Slight Prothrombin Time 13.3 H 9.3-11.8 sec Prothrombin Time INR 1.28 H 0.9-1.15 Activated Partial Thromboplast Time 76.0 *H 24.5-34.5 SEC Sodium Level 144 136-145 mmol/L Potassium Level 4.1 3.5-5.1 mmol/L Chloride Level 113 H 98-107 mmol/L Carbon Dioxide Level 23 20-31 mmol/L Anion Gap 8 5-15 Blood Urea Nitrogen 38 H 9-23 mg/dL Creatinine 0.71 0.700-1.30 mg/dL Glomerular Filtration Rate Calc 97 >90 mL/min BUN/Creatinine Ratio 53.5 H 10.0-20.0 Serum Glucose 121 H 74-106 mg/dL Calcium Level 9.0 8.7-10.4 mg/dL Total Bilirubin 6.2 H 0.2-1.0 mg/dL Aspartate Amino Transferase (AST) 115 H 13-40 U/L Alanine Aminotransferase (ALT) 62 H 7-40 U/L Alkaline Phosphatase 276 H 46-116 U/L Total Protein 6.1 5.7-8.2 g/dL Albumin 2.9 L 3.2-4.8 g/dL Blood Gas Spontaneous Rate 18 Nucleated Red Blood Cells % Target Cells Few Declan Cells Few Test 03/24/24 08:14 03/24/24 05:10 03/23/24 20:42 03/23/24 10:48 Range/Units Blood Gas Critical Value Read Back Yes Smudge Cells 4 /100 WBC Serum Immunoglobulin G 8047 400-0846 mg/dL Miscellaneous Referred Test (Refrg) Sent to [facility] POC Glucose 110 H 70-106 mg/dl Blood Gas Pressure Support 8 Test 03/22/24 04:40 03/21/24 23:00 03/21/24 05:00 03/20/24 09:36 Range/Units Eosinophils (%) (Auto) 0.3 0.0-7.0 % Eosinophils # (Auto) 0 0-0.8 10 ^3/uL Basophils # (Auto) 0 0-0.2 10 ^3/uL Urine Creatinine 70.84 30.0-125.0 mg/dL Urine Sodium < 10 L 40-220 mmol/L Urine Opiates Screen Neg NEGATIVE Urine Fentanyl Screen Pos NEGATIVE Urine Barbiturates Screen Neg NEGATIVE Urine Phencyclidine Screen Neg NEGATIVE Urine Amphetamines Screen Neg NEGATIVE Urine Benzodiazepines Screen Pos NEGATIVE Urine Cocaine Screen Neg NEGATIVE Urine Cannabinoids Screen Pos NEGATIVE Large Platelets Few Random Vancomycin Level 18.9 H 5-10 ug/mL Vancomycin Level Trough 20.7 H 5-10 ug/mL Test 03/20/24 03:30 03/19/24 06:30 03/19/24 02:30 03/19/24 00:13 Range/Units Haptoglobin 56 34-355 mg/dL Direct Bilirubin 3.6 H <0.3 mg/dL Lactate Dehydrogenase 424 H 120-246 U/L Creatine Kinase 531 H 46-171 U/L Plasma/Serum Blood Alcohol 5.7 <10 mg/dL Hepatitis A IgM Antibody Negative Hepatitis B Surface Antigen Negative Negative Hepatitis B Core IgM Antibody Negative Negative Hepatitis C Antibody Reactive *A Negative HIV (1&2) Antibody Negative Negative Troponin I High Sensitivity 4381 *H </=54 ng/L Test 03/18/24 23:06 03/18/24 22:52 03/18/24 22:35 03/18/24 21:20 Range/Units Lactic Acid Level 1.5 0.4-2.0 mmol/L Blood Gas Liter Flow 6.00 Urine Color Light-orange Yellow Urine Clarity Turbid H Clear Urine pH 5.5 5.0-9.0 Urine Specific [place] 1.017 1.001-1.035 Urine Protein 1+ H Negative Urine Ketones 1+ H Negative Urine Blood 3+ H Negative /uL Urine Nitrite Negative Negative Urine Bilirubin Negative Negative Urine Urobilinogen Normal Negative mg/dL Urine Leukocyte Esterase 1+ Negative /uL Urine RBC 2020 0 - 3 /hpf Urine WBC 70 0 - 3 /hpf Urine Squamous Epithelial Cells None seen <5 /hpf Urine Bacteria Mod H None Seen /hpf Urine Mucus Few None Seen Urine Glucose Normal Normal mg/dL Ammonia < 10 L 11-32 umol/L B-Type Natriuretic Peptide 905.58 0-100 pg/mL Lipase 61 H 12-53 U/L Microbiology Date/Time Source Procedure Growth Status 03/21/24 13:47 Bronchial Washings Gram Stain - Final Complete 03/21/24 13:47 Respiratory Culture - Final Klebsiella pneumoniae Complete 03/19/24 14:05 Nose MRSA Screen - Final Complete 03/18/24 23:06 Blood Blood Culture - Final NO GROWTH AFTER 5 DAYS OF INCUBATION. Complete Assessment/Plan Problem List: (1) Acute respiratory distress (2) NSTEMI (non-ST elevated myocardial infarction) (3) Sepsis (4) Pneumonia Plan Continue ventilatory support, RT, steroids, Abx, ECHO, Lovenox, cardiology consult Plan discussed with: Other RAJINDER CORADO MD Mar 26, 2024 12:15
[2024-03-26 13:45] LABS: INR 1.26 (0.9-1.15); Partial Thromboplastin Time 53.6 SEC (24.5-34.5); Prothrombin Time 13.1 sec (9.3-11.8)
--- NOTE | 2024-03-26 14:16 | DVHDS2 ---
New Physician D'charge PN Admitting Diagnosis Admitting Diagnosis afib nstemi pna Discharge Diagnosis respiratory failure septic shock pna hepatitis Operations or Procedures intubation bronchoscopy Reason(s) For Hospitalization Surgery Hospital Course 73 M transferred from outside ER for weakness, afib rvr and nstemi. He was noted to have an elevated troponin >4K and was started on heparin gtt. His imaging revealed B/L PNA and due to a decline in respiratory status he had to be intubated and stared on mechanical ventilatory support. He was seen by pulmonary and had a bronchoscopy with clearance of mucous plugging. His bronchial cultures grew klebsiella and he was maintained on iv merrem. Today his WBC normalized and he is still on a heparin gtt for nstemi. Echo showed preserved EF 50%. He had MARISOL initially however with hydration his Cr normalized and nephrology followed him throughout. He has elevated LFTs and has a hx of autoimmune hepatitis however never had a liver biopsy. He was trialed to be weaned off the vent however failed mutlple cpap trials and was not awake enough to be extubated. He remains on levophed for septic shock and we have been trying to titrate down as tolerated. given he has failed cpap trials and remains on the vent and order for ltach eval was placed and patient was accepted by ltach. he will be transported to [facility] once bed available. DC paperwork signed and patient to be transferred to [facility] once arranged. Treatment Plan Discharge Condition of Discharge Fair Disposition Acute Care Facility Discharge Instructions Diet: Cardiac 2g Na,low cholest Activity: No Restrictions, As Tolerated Medications: see med sheet Follow Up Care Follow Up/Referral: ltach Discharge Statement: "Patient was advised to return to the ER or call 911 if any headaches, dizziness, shortness of breath, chest pain, abdominal pain, bleeding, fevers, or worsening of medical condition. Patient was counseled about treatment plan, medications, possible side effects, patientverbalized understanding. All questions were answered to the best of my ability. This discharge took greater then 30 minutes in planning, reviewing documentation, counseling the patient, and discussing with other team members." BELEN COLIN MD Mar 26, 2024 14:16
[2024-03-26 17:06] LABS: Actin (Smooth Muscle) Antibody 11 Units (0-19); Mitochondrial (M2) Antibody <20.0 Units (0.0-20.0)
[2024-03-26 18:06] LABS: Anti-Nuclear Antibody Direct Negative (Negative)
[2024-03-26 19:28] LABS: INR 1.25 (0.9-1.15); Partial Thromboplastin Time 33.4 SEC (24.5-34.5)
--- NOTE | 2024-03-26 19:56 | DVHPN2 ---
Progress Note - Dictate Date Seen: Mar 26, 2024 Has the PT tested + for MRSA If YES, has PT been informed?: No Medical Necessity Reason Pt with a Central, PICC or Fol: Yes The following are medically ne: Central Line, Ramachandran Catheter Reason for ramachandran catheter: Strict I&O, Total Immobilization Subjective Patient was seen and evaluated in follow up in the ICU. Patient is intubated on ventilator. 40% FiO2. Liver biopsy was rescheduled to tomorrow 03/27 due to the patient being on Heparin. BUN 38, AST 115, ALT 62. vital signs Vital Sign Date Time Temp Pulse Resp B/P (MAP) Pulse Ox O2 Delivery O2 Flow Rate FiO2 03/26/24 10:52 58 20 99/50 (66) 96 40 03/26/24 08:00 Mechanical Ventilator+ 03/26/24 08:00 97.0 97.0 03/24/24 10:00 50.0 Total Intake and Output 03/25/24 03/25/24 03/26/24 15:00 23:00 07:00 Intake Total 848.93 ml 1148.52 ml 1222.7 ml Output Total 450 ml 400 ml Balance 848.93 ml 698.52 ml 822.7 ml medications Current Medications Medications Dose Ordered Sig/Rick Route Start Time Stop Time Status Last Admin Dose Admin Diltiazem HCl 100 ml @ 5 mls/hr Q20H IV 03/18/24 21:00 Nitroglycerin 0.4 mg Q5MINP PRN SL 03/19/24 00:15 Morphine Sulfate 2 mg Q30M PRN IV 03/19/24 00:15 Albuterol 2.5 mg Q6HR NEB 03/19/24 06:00 03/26/24 06:15 2.5 MG Ipratropium [place] 0.5 mg Q6HP NEB 03/19/24 06:00 03/26/24 06:15 0.5 MG Fentanyl Citrate 250 ml @ 5 mls/hr Q24H IV 03/19/24 04:45 03/26/24 06:53 5 MLS/HR Norepinephrine Bitartrate 250 ml @ 3.75 mls/hr Q24H IV 03/19/24 05:45 03/26/24 01:41 18.75 MLS/HR Midazolam HCl 50 ml @ 5 mls/hr Q10H IV 03/19/24 06:00 03/21/24 17:53 7 MLS/HR Heparin Sodium/ Dextrose 250 ml @ 6 mls/hr Q24H IV 03/19/24 15:28 03/25/24 13:43 6 MLS/HR Pantoprazole Sodium 40 mg DAILY IV 03/20/24 13:15 03/26/24 08:53 40 MG Metoclopramide HCl 10 mg BID IV 03/22/24 12:26 03/26/24 08:53 10 MG Dexmedetomidine HCl 400 mcg/ Dextrose 100 ml @ 3.84 mls/hr Q24H IV 03/22/24 13:00 03/26/24 09:02 7.68 MLS/HR Meropenem 50 ml @ 17 mls/hr Q8HR IV 03/22/24 14:00 03/26/24 05:35 17 MLS/HR Sodium Chloride 1,000 ml @ 75 mls/hr [id number] IV 03/23/24 11:30 03/25/24 13:25 75 MLS/HR Enteral Nutritional Formula 1,000 ml 30ML/HR GT 03/23/24 19:00 Amiodarone HCl 250 ml @ 16.667 mls/ hr Q15H IV 03/24/24 03:00 Propofol 100 ml @ 2.58 mls/hr Q24H IV 03/26/24 00:30 03/26/24 03:52 20.64 MLS/HR objective GENERAL: Intubated on ventilator. LUNGS: Decreased breath sounds. CARDIOVASCULAR: Heart sounds are good. ABDOMEN: Soft. laboratory and microbiology Laboratory Tests 03/26/24 04:59 Test 03/26/24 04:59 Range/Units Serum Glucose 121 H 74-106 mg/dL Problem List Acute hypoxic respiratory failure. Septic shock. NSTEMI. Acute Respiratory Failure. Elevated LFTs. Pneumonia, likely gram negative. Acute metabolic encephalopathy. Marijuana use. Assessment/Plan Continued all current supportive medical care. Diltiazem. Heparin drip per protocol. Morphine for pain management. Vasopressors for hemodynamic support. IV antibiotics as ordered. Additional plan as per the hospital course. Critical care time of 45 minutes provided to include time spent evaluation of patient at bedside, when appropriate patient/family education for diagnosis, treatment plan, review of pertinent medical information and discussion of care with specialty providers and PCP. Mechanical ventilator parameters, treatment and adjustments have personally been reviewed by me and treatment plan by ad copy writer has also been reviewed. Dietary Evaluation Review Recommendations by RD: Increase Calorie Intake Comments: 1. Increase TF rate to goal rate of 45 mL/hr as tolerated. 2. Advance patient to EVER diet pending ENTRY DRIVER OPERATOR approval, when medically feasible 3. Continue to monitor labs and patient's weight. Expected Outcomes/Goals: 1. labs to improve 2. diet to advance 3. f/u in 2-3 days Plan discussed with: SACHA Bridges MD Mar 26, 2024 12:00
--- NOTE | 2024-03-26 22:33 | DVHPN2 ---
Progress Note - Dictate Date Seen: Mar 26, 2024 Has the PT tested + for MRSA If YES, has PT been informed?: No Medical Necessity Reason Pt with a Central, PICC or Fol: Yes The following are medically ne: Central Line, Ramachandran Catheter Reason for ramachandran catheter: Strict I&O, Total Immobilization Subjective Patient seen and examined at bedside. Sedated, intubated on mechanical ventilator. Overnight events reviewed. vital signs Vital Sign Date Time Temp Pulse Resp B/P (MAP) Pulse Ox O2 Delivery O2 Flow Rate FiO2 03/26/24 18:45 73 18 109/53 (71) 98 40 03/26/24 18:00 Mechanical Ventilator+ 03/26/24 16:00 98.5 98.5 03/24/24 10:00 50.0 Total Intake and Output 03/25/24 03/25/24 03/26/24 15:00 23:00 07:00 Intake Total 848.93 ml 1148.52 ml 1222.7 ml Output Total 450 ml 400 ml Balance 848.93 ml 698.52 ml 822.7 ml objective Gen.: Patient lying in bed in medical ICU. Sedated, intubated on mechanical ventilator. Head: Normocephalic, atraumatic. Eyes: PERRLA. Ears: Normal external anatomy. Throat: Endotracheal tube and orogastric tube in place. Neck: Supple, trachea midline. Chest: Transmitted breath sounds bilaterally. Decreased air entry bilaterally. No wheezing. Bibasilar crackles. Cardiovascular: Positive S1, positive S2. Regular rate and rhythm. Abdomen: Positive bowel sounds in all 4 quadrants. Soft, nontender, nondistended. : Ramachandran in place. Normal external genitalia. Rectal: Deferred. Skin: Warm, dry. Intact. Extremities: 2+ radial pulses bilaterally. No lower extremity edema. Neuro: Sedated laboratory and microbiology Laboratory Tests 03/26/24 04:59 Test 03/26/24 04:59 Range/Units Serum Glucose 121 H 74-106 mg/dL Assessment/Plan Impression: Acute hypoxic respiratory failure On mechanical ventilator Pneumonia, likely gram negative Acute metabolic encephalopathy Non-ST elevation OH Marijuana use. Events: Remains intubated on mechanical ventilator. On AC mode; RR 18, VT 500, PEEP 5, FiO2 of 40% CXR image and report reviewed. Devices in place. Bilateral lower lung field hazy opacities. ABG reviewed, compensated. Sedated on Fentanyl, Propofol On Precedex drip On heparin drip for NSTEMI. Cardiology recs appreciated. Pressors for hemodynamic support On Levophed at 6 mcg/min Titrate to keep mean arterial pressure greater than 65 mmHg. Improved pressor requirements IV fluids at 75 mL/hr. Continue antibiotics Continue bronchodilators Monitor renal function Monitor electrolytes. Supplement as necessary. Pt tolerated SBT. Not awake, alert or following commands. Continue to taper sedation Plan to extubate once pt is awake and following commands. S/p therapeutic bronchoscopy on 03/21/24 with RML BAL - Mucous plugging from L6- L10 and R4-R10 See separate procedure note for details. Labs and imaging reviewed. Rest of plan as noted below. Plan: s/p intubation on mechanical ventilator. On AC mode; RR 18, VT 500, PEEP 5, FiO2 of 40% Titrate FIO2 to keep O2 saturation above 90%. VAP bundle. Daily ABG and CXR while intubated Sedated Pressors for hemodynamic support Titrate to keep mean arterial pressure greater than 65 mmHg. Heparin drip for elevated troponin/NSTEMI Cardiology recs appreciated Continue bronchodilators. Continue antibiotics. Leukocytosis - monitor WBC Monitor renal function Monitor electrolytes. Supplement as necessary. Monitor ins and outs. Maintain euvolemia. Counseled against marijuana use. GI prophylaxis. DVT prophylaxis. Prognosis: Poor given patient's multiple co-morbidities. Condition: Critical Rest of plan per hospitalist and other consultants. A total of 35 minutes of critical care time was spent reviewing the patient record, examining the patient, making a diagnostic and therapeutic plan, discussing this plan with the medical personnel, following up on diagnostic studies and following the patient for clinical stability excluding any and all procedures. At least 50% of this time was spent in direct, [id number] contact. Thank you, Dr. Hahn, for allowing me to participate in this patient's care. Further recommendations will depend on the patient's clinical course. Please do not hesitate to contact me if you have any questions or concerns. This medical document was created using an electronic medical record system with [employer] system. Although these documentations are being carefully reviewed, there may still be some phonetic and typographical changes. The errors are purely typographical, due to imperfection on the software program, and do not reflect any compromise in the patient's medical care. Dietary Evaluation Review Recommendations by RD: Increase Calorie Intake Comments: 1. Increase TF rate to goal rate of 45 mL/hr as tolerated. 2. Advance patient to EVER diet pending LOGISTICS/SHIPPER approval, when medically feasible 3. Continue to monitor labs and patient's weight. Expected Outcomes/Goals: 1. labs to improve 2. diet to advance 3. f/u in 2-3 days Plan discussed with: Other (JESUS Gustafson) Critical Care Time(min): 35 PRATIK DORANTES MD Mar 26, 2024 22:33
== END 2024-03-26 20:00 | DRG 870 ==
LOC: EDBD 20:26 → ER 20:26 → TELE 03-19 00:05 → ICU CENTRL 03-19 16:08
PROVIDERS: ADMIT Internal Medicine; ATTEND Student in an Organized Health Care Education/Training Program
PROC: 5A1955Z Respiratory Ventilation, Greater than 96 Consecutive Hours (ICD-10-PCS; principal; 2024-03-19)
PROC: 0BH17EZ Insertion of Endotracheal Airway into Trachea, Via Natural or Artificial Opening (ICD-10-PCS; 2024-03-19)
PROC: 0B9D8ZX Drainage of Right Middle Lung Lobe, Via Natural or Artificial Opening Endoscopic, Diagnostic (ICD-10-PCS; 2024-03-21)
DX: A41.9 Sepsis, unspecified organism (principal); G93.41 Metabolic encephalopathy; I21.4 Non-ST elevation (NSTEMI) myocardial infarction; J96.01 Acute respiratory failure with hypoxia; J15.0 Pneumonia due to Klebsiella pneumoniae; R65.21 Severe sepsis with septic shock; N17.0 Acute kidney failure with tubular necrosis; E87.0 Hyperosmolality and hypernatremia; I13.0 Hypertensive heart and chronic kidney disease with heart failure and stage 1 through stage 4 chronic kidney disease, or unspecified chronic kidney disease; I50.32 Chronic diastolic (congestive) heart failure; E87.6 Hypokalemia; I27.20 Pulmonary hypertension, unspecified; E78.5 Hyperlipidemia, unspecified; I48.91 Unspecified atrial fibrillation; E86.0 Dehydration; N18.2 Chronic kidney disease, stage 2 (mild); K75.4 Autoimmune hepatitis; I25.10 Atherosclerotic heart disease of native coronary artery without angina pectoris; Z86.73 Personal history of transient ischemic attack (TIA), and cerebral infarction without residual deficits; Z82.49 Family history of ischemic heart disease and other diseases of the circulatory system; Z79.899 Other long term (current) drug therapy
CPT/HCPCS: 31500; 36415; 36556; 36600; 70450; 71045; 74018; 76700; 80048; 80053; 80074; 80202; 80307; 80320; 81001; 82140; 82248; 82550; 82565; 82570; 82784; 82805; 82962; 83010; 83605; 83615; 83690; 83880; 84300; 84484; 85007; 85025; 85027; 85610; 85730; 86038; 86703; 86850; 86880; 86900; 86901; 87040; 87070; 87077; 87081; 87186; 87205; 93005; 93306; 94002; 94003; 94640; 96365; 99291; G0378; J0692; J2185; J2470; J2543; J2704; J3480; J7060; P9047